=== PATIENT | male | born 1965 | race Two or more races ===

== ENCOUNTER 2016-02-13 11:32 | Inpatient (IN) | payer OTHER ==
[2016-02-13 12:19] VITALS: BMI 23.1
--- NOTE | 2016-02-13 14:50 | HP ---
COWS - Scale Resting Pulse: 0= SD 80 or Below Sweatin=Flushed/Facial Moisture Restless Observation: 3= Extraneous Movement Pupil Size: 2= Moderately Dilated Bone or Joint Aches: 2= Severe Diffuse Aches Runny Nose/ Eye Tearin= Runny Nose/Eyes GI Upset > 30mins: 3= Vomiting/Diarrhea Tremor Observation: 2= Slight Tremor Visible Yawning Observation: 2= >3x During Session Anxiety or Irritability: 2=Irritable/Anxious Goose Flesh Skin: 0=Smooth Skin COWS Score: 20 Admission ROS BHS - HPI Chief Complaint: I NEED HELP TO STOP USING HEROIN Allergies/Adverse Reactions: Allergies Allergy/AdvReac Type Severity Reaction Status Date / Time Fish Containing Products Allergy Mild Rash Verified 02/13/16 13:47 No Known Drug Allergies Allergy Verified 02/13/16 13:47 cheese AdvReac Intermediate Swelling Verified 02/13/16 13:47 History of Present Illness: THIS 50 YEARS OLD MALE WITH HEROIN DEPENDENCE,WITHDRAWAL SYMPTOM,LAST [facility] TO 01/28/16 SEVERAL ADMISSIONS IN THE LAST HTN HPERCHOLESTEROLEMIA NICOTINE DEPENDENCE LONGEST PERIOD 10 YEARS Exam Limitations: No Limitations - Ebola screening Have you traveled outside of the country in the last 21 days: No (N) Have you had contact with anyone from an Ebola affected area: No Have you been sick,other than usual withdrawal symptoms: No Do you have a fever: No - Review of Systems Constitutional: Chills, Diaphoresis, Loss of Appetite, Malaise, Night Sweats, Changes in sleep, Weakness, Unintentional Wgt. Loss EENT: reports: Hearing Loss, Nose Congestion Respiratory: reports: No Symptoms reported Cardiac: reports: No Symptoms Reported GI: reports: Diarrhea, Nausea, Vomiting, Abdominal cramping : reports: No Symptoms Reported Musculoskeletal: reports: Back Pain, Joint Pain, Muscle Pain, Joint Stiffness Integumentary: reports: Dryness Neuro: reports: Headache, Tremors Endocrine: reports: No Symptoms Reported Hematology: reports: No Symptoms Reported Psychiatric: reports: Depressed Patient History - Patient Medical History Hx Anemia: No Hx Asthma: No Hx Chronic Obstructive Pulmonary Disease (COPD): No Hx Cardiac Disorders: No Hx Hypertension: Yes (NO MEDICATION) Hx Hypercholesterolemia: Yes (LIPITOR 20MG LAST TAKEN 6 MONTHS AGO) Hx Pacemaker: No HX Cerebrovascular Accident: No Hx Seizures: No Hx Dementia: No Hx Diabetes: No Hx Gastrointestinal Disorders: No Hx Liver Disease: No Hx Genitourinary Disorders: No Hx Sexually Transmitted Disorders: No Hx Renal Disease (ESRD): No Hx Thyroid Disease: No Hx Human Immunodeficiency Virus (HIV): No (LAST 06/26 NEGATIVE) Hx Hepatitis C: No Hx Depression: Yes (NO MED) Hx Suicide Attempt: No Hx Bipolar Disorder: No Hx Schizophrenia: No Other Medical History: NO SUIDAL,NO HOMICIDAL - Patient Surgical History Past Surgical History: No Hx Neurologic Surgery: No Hx Cataract Extraction: No Hx Cardiac Surgery: No Hx Lung Surgery: No Hx Breast Surgery: No Hx Breast Biopsy: No Hx Abdominal Surgery: No Hx Appendectomy: No Hx Cholecystectomy: No Hx Genitourinary Surgery: No Hx Section: No Hx Orthopedic Surgery: No Anesthesia Reaction: No - PPD History Previous Implant?: Yes Documented Results: Negative w/o proof Date: 11/16/14 Results: 0mm PPD to be Administered?: No - Smoking Cessation Smoking history: Current every day smoker Have you smoked in the past 12 months: Yes Aproximately how many cigarettes per day: 15 Cigars Per Day: 0 Hx Chewing Tobacco Use: No Initiated information on smoking cessation: Yes 'Breaking Loose' booklet given: 02/13/16 - Substance & Tx. History Hx Alcohol Use: No Hx Substance Use: Yes Substance Use Type: Heroin Hx Substance Use Treatment: Yes (LAST [facility] 11/22/14 TO 11/28/15) - Substances Abused Heroin Route: Inhalation Frequency: Daily Amount used: 6-8 bags Age of first use: 34 Date of Last Use: 02/11/16 Family Disease History - Family Disease History Family Disease History: Heart Disease: Father ([place],), Mother (ETOH DEPENDENT AND ,[place]), Brother ([place]), Other: Mother Admission Physical Exam BHS - Vital Signs Vital Signs: Vital Signs - 24 hr 02/13/16 12:18 Temperature 97.8 F Pulse Rate 64 Respiratory 18 Rate Blood Pressure 133/87 - Physical General Appearance: Yes: Moderate Distress, Tremorous, Irritable, Sweating, Anxious HEENTM: Yes: Nasal Congestion Respiratory: Yes: Lungs Clear Neck: Yes: Within Normal Limits Breast: Yes: Within Normal Limits Cardiology: Yes: Within Normal Limits, Regular Rhythm, Regular Rate, S1, S2 Abdominal: Yes: Within Normal Limits, Normal Bowel Sounds, Non Tender, Soft Genitourinary: Yes: Within Normal Limits Back: Yes: Muscle Spasm Musculoskeletal: Yes: Back pain, Joint Stiffness, Muscle Pain Extremities: Yes: Tremors 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 NML intact, Fully Oriented, Alert, Motor Strength 5/5 Integumentary: Yes: Dry Lymphatic: Yes: Within Normal Limits - Diagnostic (1) Nicotine dependence Current Visit: No Status: Chronic (2) Opioid dependence with withdrawal Current Visit: No Status: Chronic (3) Depression Current Visit: Yes Status: Acute (4) Hypertension Current Visit: Yes Status: Acute (5) Hypercholesterolemia Current Visit: Yes Status: Acute Cleared for Admission [facility] - Detox or Rehab [facility] Level of Care: Medically Managed Detox Regimen/Protocol: Methadone [facility] Breath Alcohol Content Breath Alcohol Content: 0 Urine Drug Screen - Results Urine Drug Screen Results: THC-Marijuana, ALEJANDRO-Cocaine, OPI-Opiates
[2016-02-13] MEDS ORDERED: guaiFENesin/D-METHORPHAN HB 10 ML UNIT-DOSE CUPS PO PRN (15:02)
[2016-02-13] MEDS ORDERED: hydrOXYzine PAMOATE 50 MG CAPSULE (FP) PO PRN (15:02)
[2016-02-13] MEDS ORDERED: ACETAMINOPHEN 325 MG TABLET (FP) PO PRN (15:02)
[2016-02-13] MEDS ORDERED: MAG HYDROX/AL HYDROX/SIMETH 30 ML UNIT-DOSE CUP PO PRN (15:02)
[2016-02-13] MEDS ORDERED: LOPERAMIDE HCL 2 MG CAPSULE PO PRN (15:02)
[2016-02-13] MEDS ORDERED: P-EPHED 60MG/TRIPROLIDI 2.5MG TABLET PO PRN (15:02)
[2016-02-13] MEDS ORDERED: IBUPROFEN 400 MG TABLET (FP) PO PRN (15:02)
[2016-02-13] MEDS ORDERED: MAGNESIUM HYDROX 2400MG/30ML ORAL SUSPENSION 30 ML CUP PO PRN (15:02)
[2016-02-13] MEDS ORDERED: MENTHOL/PHENOL 1 EACH UD MM PRN (15:02)
[2016-02-13] MEDS ORDERED: MAGNESIUM CITRATE 300 ML BOTTLE PO PRN (15:02)
[2016-02-13] MEDS ORDERED: METHADONE HCL 10 MG TABLET (FOR DETOX USE ONLY) PO ONE ×2 (15:45→23:00)
[2016-02-13] MEDS: diazePAM 5 MG TABLET PO PRN ×2 (16:14→22:13)
[2016-02-13] MEDS: THIAMINE HCL 100 MG TABLET (FP) PO SCH (22:11)
[2016-02-13 22:56] LABS: URINE APPEARANCE CLEAR; URINE BILIRUBIN NEGATIVE (NEGATIVE); URINE BLOOD NEGATIVE (NEGATIVE); URINE COLOR YELLOW; URINE GLUCOSE (UA) NEGATIVE (NEGATIVE); URINE KETONE NEGATIVE (NEGATIVE); URINE LEUK ESTERASE NEGATIVE (NEGATIVE); URINE NITRITE NEGATIVE (NEGATIVE); URINE PROTEIN NEGATIVE (NEGATIVE); URINE UROBILINOGEN NEGATIVE E.U./dl (0.2-1.0)
[2016-02-14] MEDS ORDERED: METHADONE HCL 10 MG TABLET (FOR DETOX USE ONLY) PO ONE (10:00)
--- NOTE | 2016-02-14 10:14 | CONSULT ---
[facility] Psychiatric Consult - Data Date of interview: 02/14/16 Admission source: [facility] Identifying data: Readmission to [facility] for this 50 y/o male seeking detox treatment on [address] [place] [address] for heroin dependence.Patient is single,a father of six,homeless,unemployed and reportedly deprived of any source of income. Substance Abuse History: - Smoking Cessation. Smoking history: Current every day smoker. Have you smoked in the past 12 months: Yes. Aproximately how many cigarettes per day: 15. Cigars Per Day: 0. Hx Chewing Tobacco Use: No. Initiated information on smoking cessation: Yes. 'Breaking Loose' booklet given : 02/13/16. - Substance & Tx. History. Hx Alcohol Use: No. Hx Substance Use: Yes. Substance Use Type: Heroin. Hx Substance Use Treatment: Yes (LAST [facility] TO 11/28/15). - Substances Abused. Heroin. Route: Inhalation. Frequency: Daily. Amount used: 6-8 bags. Age of first use: 34. Date of Last Use: 02/11/16. Confirmed by patient. Medical History: Consistent with a history of hypertension and dyslipidemia. Psychiatric History: History of 3-4 psychiatric hospitalizations (onset of psychiatric disturbances at age of 17).First psychiatric decompensation was precipitated by PCP intoxication.Never hospitalized in [facility].All admissions were in [place].Mr Dobson endorses the diagnosis of MDD.He admits to a remote history of suicide attempt via self-mutilation.No OPD care.Patient used to be on seroquel ([id number] during stay on [address] [place] [address]).Lost to follow up for several months.He declines to be on psychotropic medications other than detox agents. Physical/Sexual Abuse/Trauma History: Patient denies. Mental Status Exam - Mental Status Exam Alert and Oriented to: Time, Place, Person Cognitive Function: Good Patient Appearance: Well Groomed Mood: Withdrawn, Anxious, Hopeful Affect: Mood Congruent Patient Behavior: Fatigued, Appropriate, Cooperative Speech Pattern: Clear Voice Loudness: Normal Thought Process: Goal Oriented Thought Disorder: Not Present Hallucinations: Denies Suicidal Ideation: Denies Homicidal Ideation: Denies Insight/Judgement: Poor Sleep: Fair Appetite: Good Muscle strength/Tone: Normal Gait/Station: Normal Psychiatric Findings - Problem List ([place] 1, 2,3) (1) Heroin dependence Current Visit: Yes Status: Acute (2) Nicotine dependence Current Visit: Yes Status: Acute (3) Opioid dependence with withdrawal Current Visit: Yes Status: Acute (4) Drug-induced mood disorder Current Visit: Yes Status: Suspected (5) Hypercholesterolemia Current Visit: Yes Status: Chronic (6) Hypertension Current Visit: Yes Status: Chronic - Initial Treatment Plan Initial Treatment Plan: Psychoeducation.Detoxification.Observation.
[2016-02-14] MEDS: PRENATAL VITAMINS W/ FOLIC ACID TABLET (FP) PO SCH (10:20)
[2016-02-14] MEDS ORDERED: ONDANSETRON *ODT* 4 MG TABLET SL PRN (10:30)
--- NOTE | 2016-02-14 10:30 | PN ---
S CIWA - CIWA Score Nausea/Vomitin-Int. Nausea w/Dry Heave Muscle Tremors: 3 Anxiety: 3 Agitation: 2 Paroxysmal Sweats: 3 Orientation: 0-Oriented Tacttile Disturbances: 2-Mild Itch/Numbness/Burn Auditory Disturbances: 0-None Visual Disturbances: 0-None Headache: 0-None Present CIWA-Ar Total Score: 17 BHS Progress Note (SOAP) Subjective: SWEATS, NAUSEA, VOMITING, LBP Objective: 02/14/16 10:27 Vital Signs Temperature 97.7 F 02/14/16 10:25 Pulse Rate 72 02/14/16 10:25 Respiratory Rate 16 02/14/16 10:25 Blood Pressure 132/75 02/14/16 10:25 O2 Sat by Pulse Oximetry (%) Vital Signs Temperature 97.7 F 02/14/16 10:25 Pulse Rate 72 02/14/16 10:25 Respiratory Rate 16 02/14/16 10:25 Blood Pressure 132/75 02/14/16 10:25 O2 Sat by Pulse Oximetry (%) Laboratory Tests 02/13/16 22:40 Urine Color Yellow Urine Appearance Clear Urine pH 5.0 Ur Specific [place] 1.031 Urine Protein Negative Urine Glucose (UA) Negative Urine Ketones Negative Urine Blood Negative Urine Nitrite Negative Urine Bilirubin Negative Urine Urobilinogen Negative Ur Leukocyte Esterase Negative PENDING LABS 02/14/16 10:28 PT AOX3 LYING IN BED Assessment: 02/14/16 10:28 WITHDRAWL SX;S Plan: CONT. DETOX INCREASE FLUIDS ZOFRAN PRN F/UP PENDING LABS MOTRIN PRN
[2016-02-14 11:07] LABS: MCH 29.3 pg (25.7-33.7); MEAN CELL VOLUME 91.4 fl (80-96); MEAN PLT VOLUME 10.2 fl (7.5-11.1); PLATELET COUNT 235 K/MM3 (134-434); RDW 13.9 % (11.9-15.9); WHITE BLOOD COUNT 6.4 K/mm3 (4.0-10.0)
[2016-02-14 11:38] LABS: ALBUMIN 3.8 g/dl (3.4-5.0); ALK PHOS 79 U/L (45-117); ANION GAP 7 (8-16); BILIRUBIN,TOTAL 0.6 mg/dL (0.2-1.0); CALCIUM 9.1 mg/dL (8.5-10.1); CHOLESTEROL 214 mg/dL (50-200); CO2 29 mmol/L (21-32); CREATININE 0.8 mg/dL (0.7-1.3); GLUCOSE,RANDOM 86 mg/dL (74-106); LDL CHOLESTEROL (ONLY SJRH) 135 mg/dL (5-100); SGOT/AST 7 U/L (15-37); SGPT/ALT 16 U/L (12-78); TOT PROT 7.2 g/dl (6.4-8.2)
[2016-02-14 11:43] LABS: HIV 1 & 2 AB NEGATIVE; HIV 1 AGp24 NEGATIVE
[2016-02-14] MEDS: THIAMINE HCL 100 MG TABLET (FP) PO SCH (22:09)
[2016-02-14] MEDS: diazePAM 5 MG TABLET PO PRN (22:09)
[2016-02-15] MEDS ORDERED: METHADONE HCL 5 MG TABLET (FOR DETOX USE ONLY) PO ONE (10:00)
[2016-02-15] MEDS ORDERED: ACETAMINOPHEN 500 MG TABLET (FP) PO PRN (10:29)
--- NOTE | 2016-02-15 10:29 | PN ---
[facility] CIWA - CIWA Score Nausea/Vomitin-No Nausea/No Vomiting Muscle Tremors: 4-Moderate,w/Arms Extend Anxiety: 4-Mod. Anxious/Guarded Agitation: 4-Moderately Restless Paroxysmal Sweats: 3 Orientation: 0-Oriented Tacttile Disturbances: 0-None Auditory Disturbances: 0-None Visual Disturbances: 0-None Headache: 1-Very Mild CIWA-Ar Total Score: 16 BHS Progress Note (SOAP) Subjective: agitation sweats interrupted sleep shakes mild Objective: 02/15/16 10:29 Vital Signs Temperature 96.7 F L 02/15/16 06:26 Pulse Rate 77 02/15/16 06:26 Respiratory Rate 18 02/15/16 06:26 Blood Pressure 110/70 02/15/16 06:26 O2 Sat by Pulse Oximetry (%) Laboratory Tests 02/13/16 02/13/16 02/14/16 06:30 22:40 06:30 WBC 6.4 RBC 4.89 Hgb 14.3 D Hct 44.7 MCV 91.4 MCHC 32.0 RDW 13.9 Plt Count 235 MPV 10.2 Sodium Potassium Chloride Carbon Dioxide Anion Gap BUN Creatinine Creat Clearance w eGFR Random Glucose Calcium Total Bilirubin AST ALT Alkaline Phosphatase Total Protein Albumin Triglycerides Cholesterol Total LDL Cholesterol HDL Cholesterol Urine Color Yellow Urine Appearance Clear Urine pH 5.0 Ur Specific [place] 1.031 Urine Protein Negative Urine Glucose (UA) Negative Urine Ketones Negative Urine Blood Negative Urine Nitrite Negative Urine Bilirubin Negative Urine Urobilinogen Negative Ur Leukocyte Esterase Negative RPR Titer HIV 1&2 Antibody Screen Negative HIV P24 Antigen Negative 02/14/16 02/14/16 06:30 06:30 WBC RBC Hgb Hct MCV MCHC RDW Plt Count MPV Sodium 143 Potassium 4.5 Chloride 107 Carbon Dioxide 29 Anion Gap 7 L BUN 9 Creatinine 0.8 Creat Clearance w eGFR > 60 Random Glucose 86 Calcium 9.1 Total Bilirubin 0.6 AST 7 L ALT 16 Alkaline Phosphatase 79 D Total Protein 7.2 Albumin 3.8 D Triglycerides 108 Cholesterol 214 H Total LDL Cholesterol 135 H HDL Cholesterol 71 H Urine Color Urine Appearance Urine pH Ur Specific [place] Urine Protein Urine Glucose (UA) Urine Ketones Urine Blood Urine Nitrite Urine Bilirubin Urine Urobilinogen Ur Leukocyte Esterase RPR Titer Nonreactive HIV 1&2 Antibody Screen HIV P24 Antigen awake/alert ambulating no acute distress Assessment: 02/15/16 10:31 withdrawal sx Plan: continue detox increase fluids pt advised to see pmd for evaluation on his increased lipids after discharge from detox. pt is not currently taking any hypercholesterol medication.
[2016-02-15] MEDS: PRENATAL VITAMINS W/ FOLIC ACID TABLET (FP) PO SCH (10:35)
[2016-02-15] MEDS ORDERED: ACETAMINOPHEN 325 MG TABLET (FP) PO PRN (11:42)
[2016-02-15] MEDS: THIAMINE HCL 100 MG TABLET (FP) PO SCH (22:23)
[2016-02-15] MEDS: diphenhydrAMINE HCL 50 MG CAPSULE PO PRN (22:23)
[2016-02-16] MEDS: diazePAM 5 MG TABLET PO PRN (08:51)
[2016-02-16] MEDS ORDERED: METHADONE HCL 5 MG TABLET (FOR DETOX USE ONLY) PO ONE (10:00)
[2016-02-16] MEDS: PRENATAL VITAMINS W/ FOLIC ACID TABLET (FP) PO SCH (10:09)
--- NOTE | 2016-02-16 10:48 | PN ---
BHS Progress Note (SOAP) Subjective: sweats , shakes , n/diarrhea, stomach discomfort Objective: 02/16/16 10:33 Vital Signs Temperature 98.4 F 02/16/16 09:55 Pulse Rate 71 02/16/16 09:55 Respiratory Rate 18 02/16/16 09:55 Blood Pressure 149/75 02/16/16 09:55 O2 Sat by Pulse Oximetry (%) Laboratory Tests 02/13/16 02/13/16 02/14/16 06:30 22:40 06:30 WBC 6.4 RBC 4.89 Hgb 14.3 D Hct 44.7 MCV 91.4 MCHC 32.0 RDW 13.9 Plt Count 235 MPV 10.2 Sodium Potassium Chloride Carbon Dioxide Anion Gap BUN Creatinine Creat Clearance w eGFR Random Glucose Calcium Total Bilirubin AST ALT Alkaline Phosphatase Total Protein Albumin Triglycerides Cholesterol Total LDL Cholesterol HDL Cholesterol Urine Color Yellow Urine Appearance Clear Urine pH 5.0 Ur Specific [place] 1.031 Urine Protein Negative Urine Glucose (UA) Negative Urine Ketones Negative Urine Blood Negative Urine Nitrite Negative Urine Bilirubin Negative Urine Urobilinogen Negative Ur Leukocyte Esterase Negative RPR Titer HIV 1&2 Antibody Screen Negative HIV P24 Antigen Negative 02/14/16 02/14/16 06:30 06:30 WBC RBC Hgb Hct MCV MCHC RDW Plt Count MPV Sodium 143 Potassium 4.5 Chloride 107 Carbon Dioxide 29 Anion Gap 7 L BUN 9 Creatinine 0.8 Creat Clearance w eGFR > 60 Random Glucose 86 Calcium 9.1 Total Bilirubin 0.6 AST 7 L ALT 16 Alkaline Phosphatase 79 D Total Protein 7.2 Albumin 3.8 D Triglycerides 108 Cholesterol 214 H Total LDL Cholesterol 135 H HDL Cholesterol 71 H Urine Color Urine Appearance Urine pH Ur Specific [place] Urine Protein Urine Glucose (UA) Urine Ketones Urine Blood Urine Nitrite Urine Bilirubin Urine Urobilinogen Ur Leukocyte Esterase RPR Titer Nonreactive HIV 1&2 Antibody Screen HIV P24 Antigen pt aox3 in nad ambulating Assessment: 02/16/16 10:48 withdrawl sx's 02/16/16 10:49 Plan: cont. detox increase fluids myanta prn
[2016-02-16] MEDS: diphenhydrAMINE HCL 50 MG CAPSULE PO PRN (22:18)
[2016-02-16] MEDS: THIAMINE HCL 100 MG TABLET (FP) PO SCH (22:18)
[2016-02-17] MEDS: PRENATAL VITAMINS W/ FOLIC ACID TABLET (FP) PO SCH (09:58)
[2016-02-17] MEDS ORDERED: METHADONE HCL 10 MG TABLET (FOR DETOX USE ONLY) PO ONE (10:00)
[2016-02-17 10:04] VITALS: BP 160/99; PULSE 63; TEMP 98.1
--- NOTE | 2016-02-17 10:04 | DS ---
[facility] Detox Discharge Summary Admission Date: 02/13/16 Discharge Date: 02/17/16 - History Present History: Alcohol Dependence, Cannabis Dependence, Opioid Dependence - Physical Exam Results Vital Signs: Vital Signs Temperature 97.9 F 02/17/16 06:00 Pulse Rate 55 L 02/17/16 06:00 Respiratory Rate 18 02/17/16 06:00 Blood Pressure 134/79 02/17/16 06:00 O2 Sat by Pulse Oximetry (%) - Treatment Hospital Course: Detox Protocol Followed, Detoxed Safely, Responded well, Discharged Condition Good, Rehab Referral Accepted - Medication Discharge Medications: Ambulatory Orders NK [No Known Home Medication] 11/23/15 - Diagnosis (1) Depression Current Visit: Yes Status: Chronic (2) Alcohol dependence with uncomplicated withdrawal Current Visit: Yes Status: Chronic (3) Cannabis dependence Current Visit: Yes Status: Chronic (4) Hypercholesterolemia Current Visit: Yes Status: Chronic (5) Hypertension Current Visit: Yes Status: Chronic Qualifiers: Hypertension type: essential hypertension Qualified Code(s): I10 - Essential (primary) hypertension (6) Nicotine dependence, uncomplicated Current Visit: Yes Status: Chronic Qualifiers: Nicotine product type: cigarettes Qualified Code(s): F17.210 - Nicotine dependence, cigarettes, uncomplicated (7) Opioid dependence with withdrawal Current Visit: Yes Status: Chronic (8) Drug-induced mood disorder Current Visit: Yes Status: Suspected (9) mood disorder nos Current Visit: No Status: Active (10) Anxiety disorder Current Visit: No Status: Chronic - AMA Did Patient Leave Against Medical Advice: No (pt was p/u for rehab at [facility]. )
[2016-02-18] MEDS ORDERED: METHADONE HCL 5 MG TABLET (FOR DETOX USE ONLY) PO ONE (06:00)
== END 2016-02-17 10:02 | disposition home or self-care (01) | DRG 773 ==
LOC: YASAS 11:32 → Y6N 15:09
PROVIDERS: ADMIT Internal Medicine; ATTEND Internal Medicine
PROC: HZ2ZZZZ Detoxification Services for Substance Abuse Treatment (ICD-10-PCS; principal; 2016-02-13)
DX: F11.23 Opioid dependence with withdrawal (principal); F10.230 Alcohol dependence with withdrawal, uncomplicated; F12.20 Cannabis dependence, uncomplicated; F17.210 Nicotine dependence, cigarettes, uncomplicated; F19.24 Other psychoactive substance dependence with psychoactive substance-induced mood disorder; F39 Unspecified mood [affective] disorder; F41.9 Anxiety disorder, unspecified; F32.9 Major depressive disorder, single episode, unspecified; I10 Essential (primary) hypertension; E78.00 Pure hypercholesterolemia, unspecified; Z59.0 Homelessness
CPT/HCPCS: 36415; 80053; 80061; 81003; 83721; 85027; 86593; 87389; 93005; 93010

== ENCOUNTER 2016-12-25 16:58 | Inpatient (IN) | payer OTHER ==
[2016-12-25 17:40] VITALS: BMI 23.2
--- NOTE | 2016-12-25 19:27 | HP ---
COWS - Scale Resting Pulse: 0= [place] 80 or Below Sweatin= Chills/Flushing Restless Observation: 1= Difficult to Sit Still Pupil Size: 1= Pupils >than Normal Bone or Joint Aches: 1= Mild Discomfort Runny Nose/ Eye Tearin= Nasal Congestion GI Upset > 30mins: 3= Vomiting/Diarrhea Tremor Observation: 2= Slight Tremor Visible Yawning Observation: 1= 1-2x During Session Anxiety or Irritability: 2=Irritable/Anxious Goose Flesh Skin: 3=Piloerection COWS Score: 16 CIWA Score - CIWA Score Nausea/Vomitin Muscle Tremors: 2 Anxiety: 2 Agitation: 1-Slight > Activity Paroxysmal Sweats: 2 Orientation: 0-Oriented Tacttile Disturbances: 0-None Auditory Disturbances: 1-Very Mild Visual Disturbances: 1-Very Mild Sensitivity Headache: 1-Very Mild CIWA-Ar Total Score: 13 Admission ROS S - HPI Chief Complaint: WITHDRAWAL SYMPTOMS Allergies/Adverse Reactions: Allergies Allergy/AdvReac Type Severity Reaction Status Date / Time Fish Containing Products Allergy Mild Rash Verified 12/25/16 18:57 No Known Drug Allergies Allergy Verified 12/25/16 18:57 cheese AdvReac Intermediate Swelling Verified 12/25/16 18:57 History of Present Illness: 51 Y.O. MAN WITH AN EXTENSIVE HISTORY OF HEROIN AND ALCOHOL DEPENDENCE IS HERE SEEKING DETOX. HE HAS HAD MULTIPLE ADMISSIONS WITH HIS LAST BEING February, FOR DETOX. LONGEST PERIOD CLEAN HAS BEEN 15 YEARS WHILE INCARCERATED. Exam Limitations: No Limitations - Ebola screening Have you traveled outside of the country in the last 21 days: No Have you had contact with anyone from an Ebola affected area: No Have you been sick,other than usual withdrawal symptoms: No Do you have a fever: No - Review of Systems Constitutional: Chills, Loss of Appetite, Unintentional Wgt. Loss EENT: reports: Blurred Vision, Tearing, Nose Congestion Respiratory: reports: No Symptoms reported Cardiac: reports: No Symptoms Reported GI: reports: Diarrhea, Poor Appetite, Vomiting, Abdominal cramping : reports: No Symptoms Reported Musculoskeletal: reports: Back Pain Integumentary: reports: Dryness Neuro: reports: Tremors Endocrine: reports: No Symptoms Reported Hematology: reports: No Symptoms Reported Psychiatric: reports: Judgement Intact, Mood/Affect Appropiate, Orientated x3, Anxious, Depressed Other Systems: Reviewed and Negative Patient History - Patient Medical History Hx Anemia: No Hx Asthma: No Hx Chronic Obstructive Pulmonary Disease (COPD): No Hx Cancer: No Hx Cardiac Disorders: Yes ([place]-13 YEARS AGO ) Hx Congestive Heart Failure: No Hx Hypertension: Yes (NO MEDICATION) Hx Hypercholesterolemia: Yes (LIPITOR 20MG LAST TAKEN 6 MONTHS AGO) Hx Pacemaker: No HX Cerebrovascular Accident: No Hx Seizures: No Hx Dementia: No Hx Diabetes: No Hx Gastrointestinal Disorders: No Hx Liver Disease: No Hx Genitourinary Disorders: No Hx Sexually Transmitted Disorders: No Hx Renal Disease (ESRD): No Hx Thyroid Disease: No Hx Human Immunodeficiency Virus (HIV): No (LAST 06/26 NEGATIVE) Hx Hepatitis C: No Hx Depression: Yes (NO MED) Hx Suicide Attempt: No Hx Bipolar Disorder: No Hx Schizophrenia: No - Patient Surgical History Past Surgical History: No Hx Neurologic Surgery: No Hx Cataract Extraction: No Hx Cardiac Surgery: No Hx Lung Surgery: No Hx Breast Surgery: No Hx Breast Biopsy: No Hx Abdominal Surgery: No Hx Appendectomy: No Hx Cholecystectomy: No Hx Genitourinary Surgery: No Hx Section: No Hx Orthopedic Surgery: No Anesthesia Reaction: No - PPD History Previous Implant?: Yes Documented Results: Negative w/proof Date: 02/15/16 Results: 0mm PPD to be Administered?: No - Reproductive History Patient is a Female of Child Bearing Age (11 -55 yrs old): No - Smoking Cessation Smoking history: Current every day smoker Have you smoked in the past 12 months: Yes Aproximately how many cigarettes per day: 15 Cigars Per Day: 0 Hx Chewing Tobacco Use: No Initiated information on smoking cessation: Yes 'Breaking Loose' booklet given: 12/25/16 - Substance & Tx. History Hx Alcohol Use: Yes Hx Substance Use: Yes Substance Use Type: Alcohol, Heroin Hx Substance Use Treatment: Yes (DETOX: 02/2016; NO RECENT REHAB ) - Substances Abused Alcohol Route: Oral Frequency: Daily Amount used: LIQUOR- 1 , BEER- 1 SIX PACK Age of first use: 14 Date of Last Use: 12/25/16 Heroin Route: Inhalation Frequency: Daily Amount used: 4 BAGS Age of first use: 10 Date of Last Use: 12/24/16 Family Disease History - Family Disease History Family Disease History: Heart Disease: Father ([place],), Mother (ETOH DEPENDENT AND ,[place]), Brother ([place]), Other: Mother Admission Physical Exam [facility] - Vital Signs Vital Signs: Vital Signs - 24 hr 12/25/16 17:39 Temperature 97.2 F L Pulse Rate 71 Respiratory 16 Rate Blood Pressure 137/81 - Physical General Appearance: Yes: Disheveled, Sweating, Anxious HEENTM: Yes: Hearing grossly Normal, Normocephalic, Normal Voice Respiratory: Yes: Chest Non-Tender, Lungs Clear, Normal Breath Sounds Neck: Yes: No masses,lesions,Nodules, Trachea in good position Breast: Yes: Breast Exam Deferred Cardiology: Yes: Regular Rhythm, Regular Rate Abdominal: Yes: Normal Bowel Sounds, Non Tender, Flat Genitourinary: Yes: Other (NO COMPLAINTS REPORTED) Back: Yes: Normal Inspection Musculoskeletal: Yes: Gait Steady, Back pain Extremities: Yes: Normal Capillary Refill, Normal Inspection, Normal Range of Motion Neurological: Yes: Fully Oriented, Alert, Motor Strength 5/5, Normal Mood/Affect , Normal Response Integumentary: Yes: Dry Lymphatic: Yes: Within Normal Limits - Diagnostic (1) Alcohol dependence with uncomplicated withdrawal Current Visit: Yes Status: Chronic (2) Hypercholesterolemia Current Visit: Yes Status: Chronic (3) Hypertension Current Visit: Yes Status: Chronic Qualifiers: Hypertension type: essential hypertension Qualified Code(s): I10 - Essential (primary) hypertension (4) Nicotine dependence, uncomplicated Current Visit: Yes Status: Chronic Qualifiers: Nicotine product type: cigarettes Qualified Code(s): F17.210 - Nicotine dependence, cigarettes, uncomplicated (5) Opioid dependence with withdrawal Current Visit: Yes Status: Chronic (6) Weight loss Current Visit: Yes Status: Acute Cleared for Admission [facility] - Detox or Rehab [facility] Level of Care: Medically Managed Detox Regimen/Protocol: Methadone/Librium [facility] Breath Alcohol Content Breath Alcohol Content: 0 Urine Drug Screen - Results Drug Screen Negative: No Urine Drug Screen Results: OPI-Opiates, MTD-Methadone, TCA-Tricyclic Antidepress
[2016-12-25] MEDS ORDERED: MAG HYDROX/AL HYDROX/SIMETH 30 ML UNIT-DOSE CUP PO PRN (19:34)
[2016-12-25] MEDS ORDERED: IBUPROFEN 400 MG TABLET (FP) PO PRN (19:34)
[2016-12-25] MEDS ORDERED: MAGNESIUM CITRATE 300 ML BOTTLE PO PRN (19:34)
[2016-12-25] MEDS ORDERED: LOPERAMIDE HCL 2 MG CAPSULE PO PRN (19:34)
[2016-12-25] MEDS ORDERED: hydrOXYzine PAMOATE 50 MG CAPSULE (FP) PO PRN (19:34)
[2016-12-25] MEDS ORDERED: MENTHOL/PHENOL 1 EACH UD MM PRN (19:34)
[2016-12-25] MEDS ORDERED: ACETAMINOPHEN 325 MG TABLET (FP) PO PRN (19:34)
[2016-12-25] MEDS ORDERED: chlordiazePOXIDE HCL 25 MG CAPSULE PO PRN (19:34)
[2016-12-25] MEDS ORDERED: guaiFENesin/D-METHORPHAN HB 10 ML UNIT-DOSE CUPS PO PRN (19:34)
[2016-12-25] MEDS ORDERED: MAGNESIUM HYDROX 2400MG/30ML ORAL SUSPENSION 30 ML CUP PO PRN (19:34)
[2016-12-25] MEDS ORDERED: P-EPHED 60MG/TRIPROLIDI 2.5MG TABLET PO PRN (19:34)
[2016-12-25] MEDS ORDERED: chlordiazePOXIDE HCL 25 MG CAPSULE PO ONE (19:34)
[2016-12-25] MEDS ORDERED: METHADONE HCL 10 MG TABLET (FOR DETOX USE ONLY) PO ONE ×2 (19:34→23:00)
[2016-12-25] MEDS: THIAMINE HCL 100 MG TABLET (FP) PO SCH (22:09)
[2016-12-25] MEDS: chlordiazePOXIDE HCL 25 MG CAPSULE PO SCH (22:10)
[2016-12-25 22:42] LABS: URINE APPEARANCE SLCLOUDY; URINE BILIRUBIN NEGATIVE (NEGATIVE); URINE BLOOD NEGATIVE (NEGATIVE); URINE COLOR YELLOW; URINE GLUCOSE (UA) NEGATIVE (NEGATIVE); URINE KETONE NEGATIVE (NEGATIVE); URINE NITRITE NEGATIVE (NEGATIVE); URINE PROTEIN NEGATIVE (NEGATIVE); URINE UROBILINOGEN NEGATIVE mg/dL (0.2-1.0)
[2016-12-26] MEDS: chlordiazePOXIDE HCL 25 MG CAPSULE PO SCH ×4 (04:59→22:05)
--- NOTE | 2016-12-26 08:47 | PN ---
S CIWA - CIWA Score Nausea/Vomitin (N/V) Muscle Tremors: 2 Anxiety: 3 Agitation: 3 Paroxysmal Sweats: 1-Minimal Palms Moist Orientation: 0-Oriented Tacttile Disturbances: 2-Mild Itch/Numbness/Burn Auditory Disturbances: 0-None Visual Disturbances: 0-None Headache: 0-None Present CIWA-Ar Total Score: 16 BHS Progress Note (SOAP) Subjective: ANXIETY,SWEATS,NAUSEA/VOMITING,INTERMITTENT SLEEP. Objective: 12/26/16 08:46 Vital Signs Temperature 97.7 F 12/26/16 05:44 Pulse Rate 56 L 12/26/16 05:44 Respiratory Rate 18 12/26/16 05:44 Blood Pressure 119/71 12/26/16 05:44 O2 Sat by Pulse Oximetry (%) Laboratory Last Values Urine Color Yellow 12/25/16 21:30 Urine Appearance Slcloudy 12/25/16 21:30 Urine pH 5.0 (5.0-8.0) 12/25/16 21:30 Ur Specific [place] 1.027 (1.001-1.035) 12/25/16 21:30 Urine Protein Negative (NEGATIVE) 12/25/16 21:30 Urine Glucose (UA) Negative (NEGATIVE) 12/25/16 21:30 Urine Ketones Negative (NEGATIVE) 12/25/16 21:30 Urine Blood Negative (NEGATIVE) 12/25/16 21:30 Urine Nitrite Negative (NEGATIVE) 12/25/16 21:30 Urine Bilirubin Negative (NEGATIVE) 12/25/16 21:30 Urine Urobilinogen Negative mg/dL (0.2-1.0) 12/25/16 21:30 OTHER LABS PENDING Assessment: 12/26/16 08:47 WITHDRAWAL SX Plan: CONTINUE DETOX
[2016-12-26] MEDS ORDERED: METHADONE HCL 10 MG TABLET (FOR DETOX USE ONLY) PO SCH (10:00)
[2016-12-26 10:04] LABS: MCH 29.3 pg (25.7-33.7); MCHC 32.2 g/dl (32.0-35.9); MEAN PLT VOLUME 9.5 fl (7.5-11.1); PLATELET COUNT 249 K/MM3 (134-434); RDW 13.9 % (11.9-15.9); WHITE BLOOD COUNT 6.6 K/mm3 (4.0-10.0)
[2016-12-26] MEDS: PRENATAL VITAMINS W/ FOLIC ACID TABLET (FP) PO SCH (10:07)
[2016-12-26] MEDS ORDERED: ONDANSETRON *ODT* 4 MG TABLET SL PRN (10:13)
[2016-12-26 10:26] LABS: ALBUMIN 3.1 g/dl (3.4-5.0); ALK PHOS 66 U/L (45-117); ANION GAP 9 (8-16); BILIRUBIN,TOTAL 0.4 mg/dL (0.2-1.0); CALCIUM 8.2 mg/dL (8.5-10.1); CO2 27 mmol/L (21-32); CREATININE 0.7 mg/dL (0.7-1.3); GLUCOSE,RANDOM 70 mg/dL (74-106); SGOT/AST 7 U/L (15-37); SGPT/ALT 18 U/L (12-78); TOT PROT 6.1 g/dl (6.4-8.2)
[2016-12-26 10:55] LABS: URINE LEUK ESTERASE Negative (NEGATIVE)
[2016-12-26 11:04] LABS: HIV 1 & 2 AB NEGATIVE; HIV 1 AGp24 NEGATIVE
--- NOTE | 2016-12-26 11:38 | EKG ---
Test Reason : Blood Pressure : / mmHG Vent. Rate : 064 BPM Atrial Rate : 064 BPM P-R Int : 132 ms QRS Dur : 084 ms QT Int : 398 ms P-R-T Axes : -18 084 051 degrees QTc Int : 410 ms NORMAL SINUS RHYTHM NORMAL ECG NO PREVIOUS ECGS AVAILABLE Confirmed by JULIO SANTIZO, SINDY ([id number]) on 12/26/2016 11:38:14 AM Referred By: Confirmed By:SINDY KIM MD
--- NOTE | 2016-12-26 14:52 | CONSULT ---
[facility] Psychiatric Consult - Data Date of interview: 12/26/16 Admission source: [facility] Identifying data: Another admission to [facility] for this 51 y/o male seeking detox treatment on [address] [place] [address] for heroin dependence.Patient is single,a father of six,homeless,unemployed and supported on food stamps. Substance Abuse History: Patient admits to active use of alcohol and heroin as detailed in this report from [facility] . Smoking history: Current every day smoker. Have you smoked in the past 12 months: Yes. Aproximately how many cigarettes per day: 15. Cigars Per Day: 0. Hx Chewing Tobacco Use: No. Initiated information on smoking cessation: Yes. 'Breaking Loose' booklet given: . - Substance & Tx. History. Hx Alcohol Use: Yes. Hx Substance Use: Yes. Substance Use Type: Alcohol, Heroin. Hx Substance Use Treatment: Yes (DETOX: 2016; NO RECENT REHAB ). - Substances Abused. Alcohol. Route: Oral. Frequency: Daily. Amount used: LIQUOR- 1 , BEER- 1 SIX PACK. Age of first use : 14. Date of Last Use: 12/25/16. Heroin. Route: Inhalation. Frequency: Daily. Amount used: 4 BAGS. Age of first use: 10. Date of Last Use: 12/24/16 Medical History: History of myocardial infarction,hypertension and dyslipidemia. Psychiatric History: History of multiple psychiatric hospitalizations.Onset of psychiatric disturbances : age 17.All hospitalizations occurred in [place].Mr Dobson reports the diagnosis of MDD.Remote history of suicide attempt via self-mutilation.No OPD care.Patient used to be on seroquel (2010- 2012 during stay on [address] [place] [address]).Lost to follow up for several months.Patient requests that seroquel 100 mg be included in this hospital course. Physical/Sexual Abuse/Trauma History: No reported history of abuse. Additional Comment: Urine Drug Screen Results: OPI-Opiates, MTD-Methadone, TCA- Tricyclic Antidepressant.Noted. Mental Status Exam - Mental Status Exam Alert and Oriented to: Time, Place, Person Cognitive Function: Good Patient Appearance: Well Groomed Mood: Nervous, Withdrawn, Anxious Affect: Mood Congruent Patient Behavior: Fatigued, Appropriate, Cooperative Speech Pattern: Clear Voice Loudness: Normal Thought Process: Goal Oriented Thought Disorder: Not Present Hallucinations: Denies Suicidal Ideation: Denies Homicidal Ideation: Denies Insight/Judgement: Poor Sleep: Poorly, Difficulty falling asleep Appetite: Good Muscle strength/Tone: Normal Gait/Station: Normal Psychiatric Findings - Problem List ([place] 1, 2,3) (1) Alcohol dependence with uncomplicated withdrawal Current Visit: Yes Status: Acute (2) Opioid dependence with withdrawal Current Visit: Yes Status: Acute (3) Nicotine dependence, uncomplicated Current Visit: Yes Status: Acute Qualifiers: Nicotine product type: cigarettes Qualified Code(s): F17.210 - Nicotine dependence, cigarettes, uncomplicated (4) Drug-induced mood disorder Current Visit: Yes Status: Acute (5) Insomnia Current Visit: Yes Status: Acute - Initial Treatment Plan Initial Treatment Plan: Psychoeducation.Sleep hygiene.Detoxification in progress.Seroquel 100 mg po hs.Side effects/benefits are discussed with patient.He agrees with this careplan.Observation.
[2016-12-26] MEDS ORDERED: QUEtiapine FUMARATE 100 MG TABLET (FP) PO SCH ×2 (15:00→22:00)
[2016-12-26] MEDS: THIAMINE HCL 100 MG TABLET (FP) PO SCH (22:04)
[2016-12-26] MEDS: QUEtiapine FUMARATE 100 MG TABLET (FP) PO SCH (22:05)
[2016-12-27] MEDS: chlordiazePOXIDE HCL 25 MG CAPSULE PO SCH ×3 (04:54→17:27)
[2016-12-27] MEDS: PRENATAL VITAMINS W/ FOLIC ACID TABLET (FP) PO SCH (10:02)
[2016-12-27] MEDS: METHADONE HCL 5 MG TABLET (FOR DETOX USE ONLY) PO SCH (10:02)
--- NOTE | 2016-12-27 13:46 | PN ---
[facility] CIWA - CIWA Score Nausea/Vomitin-No Nausea/No Vomiting Muscle Tremors: 4-Moderate,w/Arms Extend Anxiety: 3 Agitation: 0-Normal Activity Paroxysmal Sweats: 3 Orientation: 4Disoriented Place/Person Tacttile Disturbances: 0-None Auditory Disturbances: 0-None Visual Disturbances: 0-None Headache: 3-Moderate CIWA-Ar Total Score: 17 BHS COWS - Scale Resting Pulse: 0= [place] 80 or Below Sweatin= Chills/Flushing Restless Observation: 1= Difficult to Sit Still Pupil Size: 0= Normal to Room Light Bone or Joint Aches: 2= Severe Diffuse Aches Runny Nose/ Eye Tearin= None GI Upset > 30mins: 2= Nausea/Diarrhea Tremor Observation of Outstretched Hands: 2= Slight Tremor Visible Yawning Observation: 1= 1-2x During Session Anxiety or Irritability: 2=Irritable/Anxious Goose Flesh Skin: 3=Piloerection COWS Score: 14 S Progress Note (SOAP) Subjective: Diarrhea, Tremors, H/A, Body Aches, Sweating. Objective: PT. A & O X 2 (UNCERTAIN ABOUT CURRENT LOCATION). PT. OBSERVED AMBULATING ON UNIT. NO ACUTE DISTRESS. 12/27/16 13:43 Vital Signs Temperature 99.0 F 12/27/16 13:07 Pulse Rate 78 12/27/16 13:07 Respiratory Rate 18 12/27/16 13:07 Blood Pressure 127/79 12/27/16 13:07 O2 Sat by Pulse Oximetry (%) Laboratory Tests 12/25/16 12/25/16 12/26/16 07:00 21:30 07:00 WBC RBC Hgb Hct MCV MCH MCHC RDW Plt Count MPV Sodium Potassium Chloride Carbon Dioxide Anion Gap BUN Creatinine Creat Clearance w eGFR Random Glucose Calcium Total Bilirubin AST ALT Alkaline Phosphatase Total Protein Albumin Urine Color Yellow Urine Appearance Slcloudy Urine pH 5.0 Ur Specific [place] 1.027 Urine Protein Negative Urine Glucose (UA) Negative Urine Ketones Negative Urine Blood Negative Urine Nitrite Negative Urine Bilirubin Negative Urine Urobilinogen Negative Ur Leukocyte Esterase Negative RPR Titer Hepatitis C Antibody <0.1 HIV 1&2 Antibody Screen Negative HIV P24 Antigen Negative 12/26/16 12/26/16 12/26/16 07:00 07:00 07:00 WBC 6.6 RBC 4.40 Hgb 12.9 Hct 40.1 MCV 91.0 MCH 29.3 MCHC 32.2 RDW 13.9 Plt Count 249 MPV 9.5 Sodium 143 Potassium 4.7 Chloride 107 Carbon Dioxide 27 Anion Gap 9 BUN 12 D Creatinine 0.7 Creat Clearance w eGFR > 60 Random Glucose 70 L Calcium 8.2 L Total Bilirubin 0.4 D AST 7 L ALT 18 Alkaline Phosphatase 66 Total Protein 6.1 L Albumin 3.1 L Urine Color Urine Appearance Urine pH Ur Specific [place] Urine Protein Urine Glucose (UA) Urine Ketones Urine Blood Urine Nitrite Urine Bilirubin Urine Urobilinogen Ur Leukocyte Esterase RPR Titer Nonreactive Hepatitis C Antibody HIV 1&2 Antibody Screen HIV P24 Antigen LABS NOTED. 12/27/16 13:45 Assessment: 12/27/16 13:44 WITHDRAWAL SYMPTOMS. Plan: CONTINUE DETOX. INCREASE DAILY PO FLUID INTAKE. PRN IMMODIUM FOR DIARRHEA.
[2016-12-27] MEDS: THIAMINE HCL 100 MG TABLET (FP) PO SCH (22:01)
[2016-12-27] MEDS: chlordiazePOXIDE 5 MG CAPSULE PO SCH (22:01)
[2016-12-27] MEDS: QUEtiapine FUMARATE 100 MG TABLET (FP) PO SCH (22:01)
[2016-12-28] MEDS: chlordiazePOXIDE 5 MG CAPSULE PO SCH ×3 (05:52→17:08)
[2016-12-28] MEDS: METHADONE HCL 5 MG TABLET (FOR DETOX USE ONLY) PO SCH (10:08)
[2016-12-28] MEDS: PRENATAL VITAMINS W/ FOLIC ACID TABLET (FP) PO SCH (10:09)
--- NOTE | 2016-12-28 12:32 | PN ---
BHS Progress Note (SOAP) Subjective: Diarrhea, Tremors, Sweating, Nausea, Stomach Cramping, Body Aches. Objective: PT. A & O X 3, OBSERVED AMBULATING ON UNIT. NO ACUTE DISTRESS. 12/28/16 12:30 Vital Signs Temperature 98.0 F 12/28/16 10:17 Pulse Rate 87 12/28/16 10:17 Respiratory Rate 18 12/28/16 10:17 Blood Pressure 123/76 12/28/16 10:17 O2 Sat by Pulse Oximetry (%) Laboratory Tests 12/25/16 12/25/16 12/26/16 07:00 21:30 07:00 WBC RBC Hgb Hct MCV MCH MCHC RDW Plt Count MPV Sodium Potassium Chloride Carbon Dioxide Anion Gap BUN Creatinine Creat Clearance w eGFR Random Glucose Calcium Total Bilirubin AST ALT Alkaline Phosphatase Total Protein Albumin Urine Color Yellow Urine Appearance Slcloudy Urine pH 5.0 Ur Specific [place] 1.027 Urine Protein Negative Urine Glucose (UA) Negative Urine Ketones Negative Urine Blood Negative Urine Nitrite Negative Urine Bilirubin Negative Urine Urobilinogen Negative Ur Leukocyte Esterase Negative RPR Titer Hepatitis C Antibody <0.1 HIV 1&2 Antibody Screen Negative HIV P24 Antigen Negative 12/26/16 12/26/16 12/26/16 07:00 07:00 07:00 WBC 6.6 RBC 4.40 Hgb 12.9 Hct 40.1 MCV 91.0 MCH 29.3 MCHC 32.2 RDW 13.9 Plt Count 249 MPV 9.5 Sodium 143 Potassium 4.7 Chloride 107 Carbon Dioxide 27 Anion Gap 9 BUN 12 D Creatinine 0.7 Creat Clearance w eGFR > 60 Random Glucose 70 L Calcium 8.2 L Total Bilirubin 0.4 D AST 7 L ALT 18 Alkaline Phosphatase 66 Total Protein 6.1 L Albumin 3.1 L Urine Color Urine Appearance Urine pH Ur Specific [place] Urine Protein Urine Glucose (UA) Urine Ketones Urine Blood Urine Nitrite Urine Bilirubin Urine Urobilinogen Ur Leukocyte Esterase RPR Titer Nonreactive Hepatitis C Antibody HIV 1&2 Antibody Screen HIV P24 Antigen LABS NOTED. Assessment: 12/28/16 12:31 WITHDRAWAL SYMPTOMS. Plan: CONTINUE DETOX.
[2016-12-28] MEDS: QUEtiapine FUMARATE 100 MG TABLET (FP) PO SCH (22:05)
[2016-12-28] MEDS: THIAMINE HCL 100 MG TABLET (FP) PO SCH (22:05)
[2016-12-28] MEDS: chlordiazePOXIDE HCL 10 MG CAPSULE PO SCH (22:05)
[2016-12-29] MEDS: chlordiazePOXIDE HCL 10 MG CAPSULE PO SCH ×3 (05:48→17:40)
[2016-12-29] MEDS ORDERED: METHADONE HCL 10 MG TABLET (FOR DETOX USE ONLY) PO SCH (10:00)
[2016-12-29] MEDS: PRENATAL VITAMINS W/ FOLIC ACID TABLET (FP) PO SCH (10:05)
--- NOTE | 2016-12-29 14:21 | PN ---
BHS Progress Note (SOAP) Subjective: Diarrhea, Stomach Cramping, Body Aches, Interrupted Sleep, Tremors, Anxious. Objective: PT. A & O X 3, OBSERVED AMBULATING ON UNIT. NO ACUTE DISTRESS. 12/29/16 14:20 Vital Signs Temperature 98.7 F 12/29/16 13:37 Pulse Rate 88 12/29/16 13:37 Respiratory Rate 18 12/29/16 13:37 Blood Pressure 134/79 12/29/16 13:37 O2 Sat by Pulse Oximetry (%) Laboratory Tests 12/25/16 12/25/16 12/26/16 07:00 21:30 07:00 WBC RBC Hgb Hct MCV MCH MCHC RDW Plt Count MPV Sodium Potassium Chloride Carbon Dioxide Anion Gap BUN Creatinine Creat Clearance w eGFR Random Glucose Calcium Total Bilirubin AST ALT Alkaline Phosphatase Total Protein Albumin Urine Color Yellow Urine Appearance Slcloudy Urine pH 5.0 Ur Specific [place] 1.027 Urine Protein Negative Urine Glucose (UA) Negative Urine Ketones Negative Urine Blood Negative Urine Nitrite Negative Urine Bilirubin Negative Urine Urobilinogen Negative Ur Leukocyte Esterase Negative RPR Titer Hepatitis C Antibody <0.1 HIV 1&2 Antibody Screen Negative HIV P24 Antigen Negative 12/26/16 12/26/16 12/26/16 07:00 07:00 07:00 WBC 6.6 RBC 4.40 Hgb 12.9 Hct 40.1 MCV 91.0 MCH 29.3 MCHC 32.2 RDW 13.9 Plt Count 249 MPV 9.5 Sodium 143 Potassium 4.7 Chloride 107 Carbon Dioxide 27 Anion Gap 9 BUN 12 D Creatinine 0.7 Creat Clearance w eGFR > 60 Random Glucose 70 L Calcium 8.2 L Total Bilirubin 0.4 D AST 7 L ALT 18 Alkaline Phosphatase 66 Total Protein 6.1 L Albumin 3.1 L Urine Color Urine Appearance Urine pH Ur Specific [place] Urine Protein Urine Glucose (UA) Urine Ketones Urine Blood Urine Nitrite Urine Bilirubin Urine Urobilinogen Ur Leukocyte Esterase RPR Titer Nonreactive Hepatitis C Antibody HIV 1&2 Antibody Screen HIV P24 Antigen LABS NOTED. Assessment: 12/29/16 14:20 WITHDRAWAL SYMPTOMS. Plan: CONTINUE DETOX. DUE TO SEVERITY OF CURRENT DETOX SYMPTOMS, PATIENT PERMITTED TO REMAIN ON DETOX UNIT UNTIL 12/31/2016 - 01/01/2017 PENDING UPCOMING DAILY MEDICAL EVALUATION.
[2016-12-29] MEDS: QUEtiapine FUMARATE 100 MG TABLET (FP) PO SCH (22:03)
[2016-12-29] MEDS: THIAMINE HCL 100 MG TABLET (FP) PO SCH (22:03)
[2016-12-30] MEDS ORDERED: METHADONE HCL 5 MG TABLET (FOR DETOX USE ONLY) PO SCH (06:00)
[2016-12-30] MEDS: PRENATAL VITAMINS W/ FOLIC ACID TABLET (FP) PO SCH (10:12)
--- NOTE | 2016-12-30 14:18 | PN ---
BHS Progress Note (SOAP) Subjective: Tremor, sweating, stomach and back ache Objective: 12/30/16 14:17 Last Vital Signs Temp Pulse Resp BP Pulse Ox 98.2 F 102 H 18 115/80 12/30/16 09:42 12/30/16 09:42 12/30/16 09:42 12/30/16 09:42 Laboratory Tests 12/25/16 12/25/16 12/26/16 07:00 21:30 07:00 WBC RBC Hgb Hct MCV MCH MCHC RDW Plt Count MPV Sodium Potassium Chloride Carbon Dioxide Anion Gap BUN Creatinine Creat Clearance w eGFR POC Glucometer Random Glucose Calcium Total Bilirubin AST ALT Alkaline Phosphatase Total Protein Albumin Urine Color Yellow Urine Appearance Slcloudy Urine pH 5.0 Ur Specific [place] 1.027 Urine Protein Negative Urine Glucose (UA) Negative Urine Ketones Negative Urine Blood Negative Urine Nitrite Negative Urine Bilirubin Negative Urine Urobilinogen Negative Ur Leukocyte Esterase Negative RPR Titer Hepatitis C Antibody <0.1 HIV 1&2 Antibody Screen Negative HIV P24 Antigen Negative 12/26/16 12/26/16 12/26/16 07:00 07:00 07:00 WBC 6.6 RBC 4.40 Hgb 12.9 Hct 40.1 MCV 91.0 MCH 29.3 MCHC 32.2 RDW 13.9 Plt Count 249 MPV 9.5 Sodium 143 Potassium 4.7 Chloride 107 Carbon Dioxide 27 Anion Gap 9 BUN 12 D Creatinine 0.7 Creat Clearance w eGFR > 60 POC Glucometer Random Glucose 70 L Calcium 8.2 L Total Bilirubin 0.4 D AST 7 L ALT 18 Alkaline Phosphatase 66 Total Protein 6.1 L Albumin 3.1 L Urine Color Urine Appearance Urine pH Ur Specific [place] Urine Protein Urine Glucose (UA) Urine Ketones Urine Blood Urine Nitrite Urine Bilirubin Urine Urobilinogen Ur Leukocyte Esterase RPR Titer Nonreactive Hepatitis C Antibody HIV 1&2 Antibody Screen HIV P24 Antigen 12/29/16 16:31 WBC RBC Hgb Hct MCV MCH MCHC RDW Plt Count MPV Sodium Potassium Chloride Carbon Dioxide Anion Gap BUN Creatinine Creat Clearance w eGFR POC Glucometer 104 Random Glucose Calcium Total Bilirubin AST ALT Alkaline Phosphatase Total Protein Albumin Urine Color Urine Appearance Urine pH Ur Specific [place] Urine Protein Urine Glucose (UA) Urine Ketones Urine Blood Urine Nitrite Urine Bilirubin Urine Urobilinogen Ur Leukocyte Esterase RPR Titer Hepatitis C Antibody HIV 1&2 Antibody Screen HIV P24 Antigen Labs noted Assessment: 12/30/16 14:17 Withdrawal symptoms Plan: Continue detox Encouraged to drink lots of water
[2016-12-30] MEDS: QUEtiapine FUMARATE 100 MG TABLET (FP) PO SCH (22:01)
[2016-12-30] MEDS: THIAMINE HCL 100 MG TABLET (FP) PO SCH (22:01)
[2016-12-31 09:14] VITALS: BP 123/84; PULSE 88; TEMP 96.5
[2016-12-31] MEDS: PRENATAL VITAMINS W/ FOLIC ACID TABLET (FP) PO SCH (10:03)
--- NOTE | 2016-12-31 11:13 | PN ---
BHS Progress Note (SOAP) Subjective: Anxious. Objective: PT. A & O X 3, OBSERVED AMBULATING ON UNIT. NO ACUTE DISTRESS. 12/31/16 11:10 Vital Signs Temperature 96.5 F L 12/31/16 09:13 Pulse Rate 88 12/31/16 09:13 Respiratory Rate 18 12/31/16 09:13 Blood Pressure 123/84 12/31/16 09:13 O2 Sat by Pulse Oximetry (%) Laboratory Tests 12/25/16 12/25/16 12/26/16 07:00 21:30 07:00 WBC RBC Hgb Hct MCV MCH MCHC RDW Plt Count MPV Sodium Potassium Chloride Carbon Dioxide Anion Gap BUN Creatinine Creat Clearance w eGFR POC Glucometer Random Glucose Calcium Total Bilirubin AST ALT Alkaline Phosphatase Total Protein Albumin Urine Color Yellow Urine Appearance Slcloudy Urine pH 5.0 Ur Specific [place] 1.027 Urine Protein Negative Urine Glucose (UA) Negative Urine Ketones Negative Urine Blood Negative Urine Nitrite Negative Urine Bilirubin Negative Urine Urobilinogen Negative Ur Leukocyte Esterase Negative RPR Titer Hepatitis C Antibody <0.1 HIV 1&2 Antibody Screen Negative HIV P24 Antigen Negative 12/26/16 12/26/16 12/26/16 07:00 07:00 07:00 WBC 6.6 RBC 4.40 Hgb 12.9 Hct 40.1 MCV 91.0 MCH 29.3 MCHC 32.2 RDW 13.9 Plt Count 249 MPV 9.5 Sodium 143 Potassium 4.7 Chloride 107 Carbon Dioxide 27 Anion Gap 9 BUN 12 D Creatinine 0.7 Creat Clearance w eGFR > 60 POC Glucometer Random Glucose 70 L Calcium 8.2 L Total Bilirubin 0.4 D AST 7 L ALT 18 Alkaline Phosphatase 66 Total Protein 6.1 L Albumin 3.1 L Urine Color Urine Appearance Urine pH Ur Specific [place] Urine Protein Urine Glucose (UA) Urine Ketones Urine Blood Urine Nitrite Urine Bilirubin Urine Urobilinogen Ur Leukocyte Esterase RPR Titer Nonreactive Hepatitis C Antibody HIV 1&2 Antibody Screen HIV P24 Antigen 12/29/16 16:31 WBC RBC Hgb Hct MCV MCH MCHC RDW Plt Count MPV Sodium Potassium Chloride Carbon Dioxide Anion Gap BUN Creatinine Creat Clearance w eGFR POC Glucometer 104 Random Glucose Calcium Total Bilirubin AST ALT Alkaline Phosphatase Total Protein Albumin Urine Color Urine Appearance Urine pH Ur Specific [place] Urine Protein Urine Glucose (UA) Urine Ketones Urine Blood Urine Nitrite Urine Bilirubin Urine Urobilinogen Ur Leukocyte Esterase RPR Titer Hepatitis C Antibody HIV 1&2 Antibody Screen HIV P24 Antigen LABS NOTED. Assessment: 12/31/16 11:11 WITHDRAWAL SYMPTOMS. Plan: CONTINUE DETOX. PATIENT REMAINING ON DETOX UNIT WHILE WAITS FOR POSSIBLE BED AVAILABILITY AT [facility].
--- NOTE | 2016-12-31 13:25 | DS ---
[facility] Detox Discharge Summary Admission Date: 12/25/16 Discharge Date: 12/31/16 - History Present History: Alcohol Dependence, Opioid Dependence Additional Comments: PATIENT GOING TO [facility] FOR AFTERCARE. PATIENT WAS DISCHARGED FROM DETOX UNIT TO BE TAKEN OVER TO REHAB UNIT IN STABLE MEDICAL CONDITION. Pertinent Past History: HTN, Hypercholesterolemia, History of [place], Nicotine Dependence, Insomnia. - Physical Exam Results Vital Signs: Vital Signs Temperature 96.5 F L 12/31/16 09:13 Pulse Rate 88 12/31/16 09:13 Respiratory Rate 18 12/31/16 09:13 Blood Pressure 123/84 12/31/16 09:13 O2 Sat by Pulse Oximetry (%) Pertinent Admission Physical Exam Findings: WITHDRAWAL SYMPTOMS. Laboratory Tests 12/25/16 12/25/16 12/26/16 07:00 21:30 07:00 WBC RBC Hgb Hct MCV MCH MCHC RDW Plt Count MPV Sodium Potassium Chloride Carbon Dioxide Anion Gap BUN Creatinine Creat Clearance w eGFR POC Glucometer Random Glucose Calcium Total Bilirubin AST ALT Alkaline Phosphatase Total Protein Albumin Urine Color Yellow Urine Appearance Slcloudy Urine pH 5.0 Ur Specific [place] 1.027 Urine Protein Negative Urine Glucose (UA) Negative Urine Ketones Negative Urine Blood Negative Urine Nitrite Negative Urine Bilirubin Negative Urine Urobilinogen Negative Ur Leukocyte Esterase Negative RPR Titer Hepatitis C Antibody <0.1 HIV 1&2 Antibody Screen Negative HIV P24 Antigen Negative 12/26/16 12/26/16 12/26/16 07:00 07:00 07:00 WBC 6.6 RBC 4.40 Hgb 12.9 Hct 40.1 MCV 91.0 MCH 29.3 MCHC 32.2 RDW 13.9 Plt Count 249 MPV 9.5 Sodium 143 Potassium 4.7 Chloride 107 Carbon Dioxide 27 Anion Gap 9 BUN 12 D Creatinine 0.7 Creat Clearance w eGFR > 60 POC Glucometer Random Glucose 70 L Calcium 8.2 L Total Bilirubin 0.4 D AST 7 L ALT 18 Alkaline Phosphatase 66 Total Protein 6.1 L Albumin 3.1 L Urine Color Urine Appearance Urine pH Ur Specific [place] Urine Protein Urine Glucose (UA) Urine Ketones Urine Blood Urine Nitrite Urine Bilirubin Urine Urobilinogen Ur Leukocyte Esterase RPR Titer Nonreactive Hepatitis C Antibody HIV 1&2 Antibody Screen HIV P24 Antigen 12/29/16 16:31 WBC RBC Hgb Hct MCV MCH MCHC RDW Plt Count MPV Sodium Potassium Chloride Carbon Dioxide Anion Gap BUN Creatinine Creat Clearance w eGFR POC Glucometer 104 Random Glucose Calcium Total Bilirubin AST ALT Alkaline Phosphatase Total Protein Albumin Urine Color Urine Appearance Urine pH Ur Specific [place] Urine Protein Urine Glucose (UA) Urine Ketones Urine Blood Urine Nitrite Urine Bilirubin Urine Urobilinogen Ur Leukocyte Esterase RPR Titer Hepatitis C Antibody HIV 1&2 Antibody Screen HIV P24 Antigen LABS NOTED. - Treatment Hospital Course: Detox Protocol Followed, Detoxed Safely, Responded well, Discharged Condition Good, Rehab Referral Accepted Patient has Accepted a Rehab Referral to: [facility]. - Diagnosis (1) Alcohol dependence with uncomplicated withdrawal Current Visit: Yes Status: Acute (2) Opioid dependence with withdrawal Current Visit: Yes Status: Acute (3) Drug-induced mood disorder Current Visit: Yes Status: Acute (4) Insomnia Current Visit: Yes Status: Acute Qualifiers: Insomnia type: unspecified Qualified Code(s): G47.00 - Insomnia, unspecified (5) Weight loss Current Visit: Yes Status: Acute (6) Hypercholesterolemia Current Visit: Yes Status: Chronic (7) Hypertension Current Visit: Yes Status: Chronic Qualifiers: Hypertension type: essential hypertension Qualified Code(s): I10 - Essential (primary) hypertension (8) Nicotine dependence, uncomplicated Current Visit: Yes Status: Chronic Qualifiers: Nicotine product type: cigarettes Qualified Code(s): F17.210 - Nicotine dependence, cigarettes, uncomplicated - AMA Did Patient Leave Against Medical Advice: No
== END 2016-12-31 02:42 | disposition other institution (70) | DRG 773 ==
LOC: YASAS 16:58 → Y3N 19:17
PROVIDERS: ADMIT Internal Medicine; ATTEND Internal Medicine
PROC: HZ2ZZZZ Detoxification Services for Substance Abuse Treatment (ICD-10-PCS; principal; 2016-12-25)
DX: F11.23 Opioid dependence with withdrawal (principal); F10.230 Alcohol dependence with withdrawal, uncomplicated; F17.210 Nicotine dependence, cigarettes, uncomplicated; F19.24 Other psychoactive substance dependence with psychoactive substance-induced mood disorder; G47.00 Insomnia, unspecified; I10 Essential (primary) hypertension; E78.00 Pure hypercholesterolemia, unspecified; R63.4 Abnormal weight loss; Z68.23 Body mass index [BMI] 23.0-23.9, adult; Z59.0 Homelessness
CPT/HCPCS: 36415; 80053; 81003; 85027; 86593; 86803; 87389; 93005; 93010

== ENCOUNTER 2016-12-31 14:50 | Inpatient (IN) | payer OTHER ==
--- NOTE | 2016-12-31 13:20 | HP ---
DAISHA SANTIZO Rehab Assess/Revision - Admission History Admitted to Rehab from: [facility] Date of Admission to Rehab: 12/31/2016 - Vital signs Vital Signs: NOTED; STABLE. - Findings Detox History & Physical reviewed: Yes Concur with findings: Yes Comments/Additional Findings: PATIENT'S MEDICAL / MEDICATION HISTORY REVIEWED PRIOR TO DISCHARGE FROM DETOX. PATIENT WAS TAKEN FROM DETOX UNIT TO REHAB UNIT IN STABLE MEDICAL CONDITION. Inpatient Rehab Admission - Initial Determination Are CD services needed?: Yes Free of communicable disease: Yes Not in need of hospitalization: Yes - Rehab Admission Criteria Previous failed treatment: Yes Comorbidities: Yes Patient is meeting Inpatient Rehab admission criteria:: Yes
[~2016-12-31 14:50] MED LIST: ACETAMINOPHEN 325 MG TABLET (FP) PO PRN; IBUPROFEN 400 MG TABLET (FP) PO PRN; LOPERAMIDE HCL 2 MG CAPSULE PO PRN; MAG HYDROX/AL HYDROX/SIMETH 30 ML UNIT-DOSE CUP PO PRN; MAGNESIUM CITRATE 300 ML BOTTLE PO PRN; MAGNESIUM HYDROX 2400MG/30ML ORAL SUSPENSION 30 ML CUP PO PRN; MENTHOL/PHENOL 1 EACH UD MM PRN; P-EPHED 60MG/TRIPROLIDI 2.5MG TABLET PO PRN; guaiFENesin/D-METHORPHAN HB 10 ML UNIT-DOSE CUPS PO PRN
[2016-12-31 15:42] VITALS: BMI 23.6
--- NOTE | 2016-12-31 18:21 | PN ---
DAISHA Progress Note Note: received nurse call that patient transferred from needs admission order chart reviewed admission order completed by Sarah
[2016-12-31] MEDS: QUEtiapine FUMARATE 100 MG TABLET (FP) PO SCH (21:54)
[2016-12-31] MEDS: THIAMINE HCL 100 MG TABLET (FP) PO SCH (21:54)
--- NOTE | 2017-01-01 06:11 | HP ---
Psychiatrist Admission - Data Date of interview: 01/01/17 Admission source: 3N Identifying data: This is one of the multiple [facility] admission for this 51 years old single male, father of 5 living children, unemployed on food stamp, homeless Medical History: Significant for myocardial infarction, hypertension and dyslipidemia. Smokes 15 cigarettes daily Psychiatric History: Reports that his first psychiatric contact was in 1998 when he was admitted to [facility] for suicidal attempt(trying to jump on a train track) in the context of PCP intoxication. Claims that he was kept for 14 days and discharged on no psychotropic medication. Reports a second psychiatric admission in January 2016 to [facility] in [place]. This admission was precipitated by the murder of her daughter in November 2015. Claims that he was hospitalized for 11 days and treated with Seroquel and Trazadone. He said that on discharge, he was referred to an inpatient rehab facility where he could only stay 10 days because of medical insurance coverage issue. Told manual writer that he continued to take Seroquel till he came to [place] 3-4 months ago. He saw Dr Underwood on 12/26/16 while in detox in this facility and Seroquel was resumed at 100 mg po HS. At present, reports feeling depressed , anxious and sleeping poorly Physical/Sexual Abuse/Trauma History: Denies history of sexual, physical or verbal abuse as well as DV relationship Additional Comment: Reports history of multiple arrests including 3 felony convictions. Denies being on parole/prbation at present Vital Signs: Vital Signs - 24 hr 12/31/16 01/01/17 01/01/17 15:15 00:30 03:30 Temperature 98.6 F Pulse Rate 98 H Respiratory 16 18 18 Rate Blood Pressure 129/89 Allergies/Adverse Reactions: Allergies Allergy/AdvReac Type Severity Reaction Status Date / Time shellfish derived Allergy Severe Swelling Verified 12/31/16 15:44 Fish Containing Products Allergy Mild Rash Verified 12/25/16 18:57 No Known Drug Allergies Allergy Verified 12/25/16 18:57 cheese AdvReac Intermediate Swelling Verified 12/25/16 18:57 Date of last physical exam: 12/25/16 Concur with the findings of this exam: Yes - Substance Abuse/Tx History Hx Alcohol Use: Yes Hx Substance Use: Yes Substance Use Type: Alcohol (Started drinking alcohol at age 14, consumes one pint of liquor & a 6pk of beer daily. Last drank on 12/25/16), Heroin (Started using heroin at age 10, consumes 4 bags daily. Last used on 12/24/16) Hx Substance Use Treatment: Yes (6 previous inpt detox & 3 inpt rehab admissions @ [facility]) Mental Status Exam - Mental Status Exam Alert and Oriented to: Time, Place, Person Cognitive Function: Fair Patient Appearance: Well Groomed Mood: Depressed, Anxious Affect: Appropriate Patient Behavior: Cooperative Speech Pattern: Clear Voice Loudness: Normal Thought Process: Intact, Goal Oriented Thought Disorder: Not Present Hallucinations: Denies Suicidal Ideation: Denies Homicidal Ideation: Denies Insight/Judgement: Fair Sleep: Poorly Appetite: Good Muscle strength/Tone: Normal Gait/Station: Normal Psychiatric Findings - Problem List ([place] 1, 2,3) (1) Alcohol dependence Current Visit: Yes Status: Acute (2) Opioid dependence Current Visit: Yes Status: Acute (3) Nicotine dependence, uncomplicated Current Visit: No Status: Chronic Qualifiers: Nicotine product type: cigarettes Qualified Code(s): F17.210 - Nicotine dependence, cigarettes, uncomplicated (4) Mood disorder Current Visit: Yes Status: Chronic (5) MDD (major depressive disorder) Current Visit: Yes Status: Ruled-out (6) Substance induced mood disorder Current Visit: Yes Status: Acute (7) Substance-induced sleep disorder Current Visit: Yes Status: Acute (8) Hypercholesterolemia Current Visit: No Status: Chronic (9) Hypertension Current Visit: No Status: Chronic Qualifiers: Hypertension type: essential hypertension Qualified Code(s): I10 - Essential (primary) hypertension (10) History of AK (myocardial infarction) Current Visit: Yes Status: Acute - Initial Treatment Plan Initial Treatment Plan: 1) Continue Seroquel 100 mg po HS. 2) Monitor progress
[2017-01-01] MEDS: PRENATAL VITAMINS W/ FOLIC ACID TABLET (FP) PO SCH (09:49)
[2017-01-01] MEDS: hydrOXYzine PAMOATE 25 MG CAPSULE (FP) PO PRN (17:54)
[2017-01-01] MEDS: THIAMINE HCL 100 MG TABLET (FP) PO SCH (21:46)
[2017-01-01] MEDS: QUEtiapine FUMARATE 100 MG TABLET (FP) PO SCH (21:46)
[2017-01-02] MEDS: hydrOXYzine PAMOATE 25 MG CAPSULE (FP) PO PRN (10:03)
[2017-01-02] MEDS: PRENATAL VITAMINS W/ FOLIC ACID TABLET (FP) PO SCH (10:03)
--- NOTE | 2017-01-02 10:41 | PN ---
[facility] Progress Note Note: c/o cravings and cotninued opioid withdrawwal sx, would like to start suboxone but homeless Vital Signs - 8 hr 01/02/17 01/02/17 01/02/17 03:30 07:16 10:00 Temperature 98.1 F Pulse Rate 88 97 H Respiratory 18 18 18 Rate Blood Pressure 123/76 122/80 labs reviewed will start suboxone 2mg daily, risks and benefits discussed. Patient requesting halfway detox that administers suboxone. when discharge plans made can increase dose so that cravings are relieved. symptomatic relief of withdrawal ordered.
[2017-01-02] MEDS: CYCLOBENZAPRINE HCL 5 MG TABLET PO SCH ×3 (11:50→21:55)
[2017-01-02] MEDS: PANTOPRAZOLE 40 MG TABLET (FP) PO SCH (11:50)
[2017-01-02] MEDS: BUPRENORPHINE/NALOXONE 2 MG/0.5 MG FILM PACKET SL SCH (11:51)
[2017-01-02] MEDS: NAPROXEN 500 MG TABLET (FP) PO SCH ×2 (11:51→21:58)
[2017-01-02] MEDS: cloNIDine HCL 0.1 MG TABLET PO SCH ×2 (11:51→21:55)
[2017-01-02] MEDS: THIAMINE HCL 100 MG TABLET (FP) PO SCH (21:55)
[2017-01-02] MEDS: QUEtiapine FUMARATE 100 MG TABLET (FP) PO SCH (21:55)
[2017-01-03] MEDS: CYCLOBENZAPRINE HCL 5 MG TABLET PO SCH ×3 (06:14→21:41)
[2017-01-03] MEDS: NAPROXEN 500 MG TABLET (FP) PO SCH ×2 (09:54→21:41)
[2017-01-03] MEDS: PANTOPRAZOLE 40 MG TABLET (FP) PO SCH (09:54)
[2017-01-03] MEDS: cloNIDine HCL 0.1 MG TABLET PO SCH ×2 (09:54→21:41)
[2017-01-03] MEDS: PRENATAL VITAMINS W/ FOLIC ACID TABLET (FP) PO SCH (09:54)
[2017-01-03] MEDS: BUPRENORPHINE/NALOXONE 2 MG/0.5 MG FILM PACKET SL SCH (09:54)
[2017-01-03] MEDS: QUEtiapine FUMARATE 100 MG TABLET (FP) PO SCH (21:41)
[2017-01-03] MEDS: THIAMINE HCL 100 MG TABLET (FP) PO SCH (21:41)
[2017-01-04] MEDS: CYCLOBENZAPRINE HCL 5 MG TABLET PO SCH ×3 (06:40→21:40)
[2017-01-04] MEDS: PRENATAL VITAMINS W/ FOLIC ACID TABLET (FP) PO SCH (10:07)
[2017-01-04] MEDS: BUPRENORPHINE/NALOXONE 2 MG/0.5 MG FILM PACKET SL SCH (10:07)
[2017-01-04] MEDS: cloNIDine HCL 0.1 MG TABLET PO SCH ×2 (10:07→21:40)
[2017-01-04] MEDS: PANTOPRAZOLE 40 MG TABLET (FP) PO SCH (10:08)
[2017-01-04] MEDS: NAPROXEN 500 MG TABLET (FP) PO SCH ×2 (10:32→21:40)
[2017-01-04] MEDS: THIAMINE HCL 100 MG TABLET (FP) PO SCH (21:41)
[2017-01-04] MEDS: QUEtiapine FUMARATE 100 MG TABLET (FP) PO SCH (21:41)
[2017-01-05] MEDS: CYCLOBENZAPRINE HCL 5 MG TABLET PO SCH ×3 (06:12→21:47)
[2017-01-05] MEDS: PRENATAL VITAMINS W/ FOLIC ACID TABLET (FP) PO SCH (09:49)
[2017-01-05] MEDS: NAPROXEN 500 MG TABLET (FP) PO SCH ×2 (09:49→21:48)
[2017-01-05] MEDS: PANTOPRAZOLE 40 MG TABLET (FP) PO SCH (09:49)
[2017-01-05] MEDS: BUPRENORPHINE/NALOXONE 2 MG/0.5 MG FILM PACKET SL SCH (09:49)
[2017-01-05] MEDS: cloNIDine HCL 0.1 MG TABLET PO SCH ×2 (09:49→21:48)
[2017-01-05] MEDS: THIAMINE HCL 100 MG TABLET (FP) PO SCH (21:47)
[2017-01-05] MEDS: QUEtiapine FUMARATE 100 MG TABLET (FP) PO SCH (21:47)
[2017-01-06] MEDS: CYCLOBENZAPRINE HCL 5 MG TABLET PO SCH (06:27)
[2017-01-06] MEDS ORDERED: CYCLOBENZAPRINE HCL 5 MG TABLET PO PRN (07:30)
[2017-01-06] MEDS: NAPROXEN 500 MG TABLET (FP) PO SCH ×2 (10:04→21:40)
[2017-01-06] MEDS: BUPRENORPHINE/NALOXONE 2 MG/0.5 MG FILM PACKET SL SCH (10:04)
[2017-01-06] MEDS: PANTOPRAZOLE 40 MG TABLET (FP) PO SCH (10:04)
[2017-01-06] MEDS: PRENATAL VITAMINS W/ FOLIC ACID TABLET (FP) PO SCH (10:04)
[2017-01-06] MEDS: cloNIDine HCL 0.1 MG TABLET PO SCH ×2 (10:04→21:40)
[2017-01-06] MEDS: THIAMINE HCL 100 MG TABLET (FP) PO SCH (21:40)
[2017-01-06] MEDS: QUEtiapine FUMARATE 100 MG TABLET (FP) PO SCH (21:40)
[2017-01-07] MEDS: BUPRENORPHINE/NALOXONE 2 MG/0.5 MG FILM PACKET SL SCH (09:54)
[2017-01-07] MEDS: NAPROXEN 500 MG TABLET (FP) PO SCH ×2 (09:54→21:33)
[2017-01-07] MEDS: PRENATAL VITAMINS W/ FOLIC ACID TABLET (FP) PO SCH (09:55)
[2017-01-07] MEDS: cloNIDine HCL 0.1 MG TABLET PO SCH ×2 (09:55→21:33)
[2017-01-07] MEDS: PANTOPRAZOLE 40 MG TABLET (FP) PO SCH (09:55)
[2017-01-07] MEDS: QUEtiapine FUMARATE 100 MG TABLET (FP) PO SCH (21:33)
[2017-01-07] MEDS: THIAMINE HCL 100 MG TABLET (FP) PO SCH (21:33)
[2017-01-08] MEDS: BUPRENORPHINE/NALOXONE 2 MG/0.5 MG FILM PACKET SL SCH (10:13)
[2017-01-08] MEDS: NAPROXEN 500 MG TABLET (FP) PO SCH ×2 (10:14→21:34)
[2017-01-08] MEDS: cloNIDine HCL 0.1 MG TABLET PO SCH ×2 (10:14→21:33)
[2017-01-08] MEDS: PRENATAL VITAMINS W/ FOLIC ACID TABLET (FP) PO SCH (10:14)
[2017-01-08] MEDS: PANTOPRAZOLE 40 MG TABLET (FP) PO SCH (10:14)
[2017-01-08] MEDS: THIAMINE HCL 100 MG TABLET (FP) PO SCH (21:33)
[2017-01-08] MEDS: QUEtiapine FUMARATE 100 MG TABLET (FP) PO SCH (21:33)
[2017-01-09] MEDS: PANTOPRAZOLE 40 MG TABLET (FP) PO SCH (10:02)
[2017-01-09] MEDS: PRENATAL VITAMINS W/ FOLIC ACID TABLET (FP) PO SCH (10:02)
[2017-01-09] MEDS: NAPROXEN 500 MG TABLET (FP) PO SCH ×2 (10:03→21:34)
[2017-01-09] MEDS: BUPRENORPHINE/NALOXONE 2 MG/0.5 MG FILM PACKET SL SCH (10:03)
[2017-01-09] MEDS: cloNIDine HCL 0.1 MG TABLET PO SCH ×2 (10:03→21:34)
[2017-01-09] MEDS: QUEtiapine FUMARATE 100 MG TABLET (FP) PO SCH (21:34)
[2017-01-09] MEDS: THIAMINE HCL 100 MG TABLET (FP) PO SCH (21:34)
[2017-01-10] MEDS: NAPROXEN 500 MG TABLET (FP) PO SCH ×2 (09:45→21:54)
[2017-01-10] MEDS: cloNIDine HCL 0.1 MG TABLET PO SCH ×2 (09:45→21:54)
[2017-01-10] MEDS: PANTOPRAZOLE 40 MG TABLET (FP) PO SCH (09:45)
[2017-01-10] MEDS: PRENATAL VITAMINS W/ FOLIC ACID TABLET (FP) PO SCH (09:45)
--- NOTE | 2017-01-10 14:34 | PN ---
Psychiatric Progress Note Vital Signs: Vital Signs Period Temp Pulse Resp BP Sys/Stack Pulse Ox Last 24 Hr 97.6 F 64-73 18-18 123-148/78-85 Date of Session: 01/10/17 Chief Complaint:: discharge visit HPI: Patient is addressing alcohol, opioid, nicotine dependence comorbid MDD, substance induced sleep disorder ROS: myocardial infarction, hypertension and dyslipidemia medically managed Current Medications: Active Medications Generic Name Dose Route Start Last Admin Trade Name Freq PRN Reason Stop Dose Admin Acetaminophen 650 mg 12/31/16 13:10 Tylenol - PO Q4H PRN FEVER OR PAIN Al Hydroxide/Mg Hydroxide 30 ml 12/31/16 13:10 Mylanta Oral Suspension - PO Q6H PRN DYSPEPSIA Clonidine 0.1 mg 01/02/17 11:00 01/10/17 09:45 Catapres - PO 0.1 mg BID LOU Administration Cyclobenzaprine HCl 5 mg 01/06/17 07:30 Cyclobenzaprine Hcl PO Q8H PRN MUSCLE SPASMS Eucalyptus/Menthol/Phenol/Sorbitol 1 each 12/31/16 13:10 Cepastat Lozenge - MM Q4H PRN SORE THROAT Guaifenesin 10 ml 12/31/16 13:10 Robitussin Dm - PO Q6H PRN COUGH Hydroxyzine Pamoate 25 mg 12/31/16 13:10 01/02/17 10:03 Vistaril - PO 25 mg Q4H PRN Administration AGITATION Loperamide HCl 4 mg 12/31/16 13:10 Imodium - PO Q6H PRN DIARRHEA Magnesium Citrate 300 ml 12/31/16 13:10 Citroma - PO Q48H PRN CONSTIPATION Magnesium Hydroxide 30 ml 12/31/16 13:10 Milk Of Magnesia - PO DAILY PRN CONSTIPATION Naproxen 500 mg 01/02/17 10:45 01/10/17 09:45 Naprosyn - PO 500 mg BID LOU Administration Pantoprazole Sodium 40 mg 01/02/17 10:45 01/10/17 09:45 Protonix - PO 40 mg DAILY LOU Administration Multivit/Folic Acid/Iron 1 tab 01/01/17 10:00 01/10/17 09:45 Vitamins (Sjr) - PO 1 tab DAILY LOU Administration Pseudoephedrine/Triprolidine 1 combo 12/31/16 13:10 Actifed - PO TID PRN NASAL CONGESTION Quetiapine Fumarate 100 mg 12/31/16 22:00 01/09/17 21:34 Seroquel - PO 100 mg HS LOU Administration Thiamine HCl 100 mg 12/31/16 22:00 01/09/17 21:34 Vitamin B1 - PO 100 mg HS LOU Administration Current Side Effect: No Lab tests ordered: No Lab tests reviewed: Yes Provider note:: Patient will complete this treatment and meet his goals on . 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 He is motivated to continue maintain abstinence and verbalized understanding the negative consequences of his addition on his major life areas. Patient was encouraged to utilze all supports to prevent relapses. Seroquel well tolerated, scripts prvided for 3 days, patient is stable for discharge tomorrow. Total face to face time:: 25 Mental Status Exam - Mental Status Exam Alert and Oriented to: Time, Place, Person Cognitive Function: Good Patient Appearance: Well Groomed Mood: Hopeful Affect: Appropriate, Mood Congruent Patient Behavior: Appropriate, Cooperative Speech Pattern: Clear, Appropriate Voice Loudness: Normal Thought Process: Intact Thought Disorder: Not Present Hallucinations: Denies Suicidal Ideation: Denies Homicidal Ideation: Denies Insight/Judgement: Fair Sleep: Fair Appetite: Fair Muscle strength/Tone: Normal Gait/Station: Normal Psychiatric Treatment Plan - Problem List (1) Alcohol dependence Current Visit: Yes (2) Opioid dependence Current Visit: Yes (3) Substance-induced sleep disorder Current Visit: Yes (4) MDD (major depressive disorder) Current Visit: Yes
[2017-01-10] MEDS: THIAMINE HCL 100 MG TABLET (FP) PO SCH (21:54)
[2017-01-10] MEDS: QUEtiapine FUMARATE 100 MG TABLET (FP) PO SCH (21:54)
[2017-01-11 06:57] VITALS: BP 145/81; PULSE 70; TEMP 97.5
== END 2017-01-11 09:20 | disposition home or self-care (01) | DRG 772 ==
LOC: YASAS 14:50 → Y3W 14:52
PROVIDERS: ADMIT Psychiatry & Neurology Psychiatry; ATTEND Psychiatry & Neurology Psychiatry
PROC: HZ42ZZZ Group Counseling for Substance Abuse Treatment, Cognitive-Behavioral (ICD-10-PCS; principal; 2016-12-31)
DX: F11.20 Opioid dependence, uncomplicated (principal); F10.20 Alcohol dependence, uncomplicated; F17.210 Nicotine dependence, cigarettes, uncomplicated; F33.9 Major depressive disorder, recurrent, unspecified; F39 Unspecified mood [affective] disorder; F19.282 Other psychoactive substance dependence with psychoactive substance-induced sleep disorder; I25.2 Old myocardial infarction; I10 Essential (primary) hypertension; E78.00 Pure hypercholesterolemia, unspecified; Z59.0 Homelessness

== ENCOUNTER 2017-02-27 10:18 | Inpatient (IN) | payer OTHER ==
[2017-02-27 11:52] VITALS: BMI 23.8
--- NOTE | 2017-02-27 15:14 | HP ---
COWS - Scale Resting Pulse: 0= [place] 80 or Below Sweatin= Chills/Flushing Restless Observation: 1= Difficult to Sit Still Pupil Size: 0= Normal to Room Light Bone or Joint Aches: 2= Severe Diffuse Aches Runny Nose/ Eye Tearin= Nasal Congestion GI Upset > 30mins: 2= Nausea/Diarrhea Tremor Observation: 2= Slight Tremor Visible Yawning Observation: 1= 1-2x During Session Anxiety or Irritability: 2=Irritable/Anxious Goose Flesh Skin: 3=Piloerection COWS Score: 15 Admission ROS S - HPI Chief Complaint: "I'm here to stop using Heroin. I hope that I can get to Rehab after Detox." Patient is here to Detox from Heroin. Allergies/Adverse Reactions: Allergies Allergy/AdvReac Type Severity Reaction Status Date / Time shellfish derived Allergy Severe Swelling Verified 12/31/16 15:44 tomato Allergy Severe Swelling Verified 02/27/17 12:22 Fish Containing Products Allergy Mild Rash Verified 12/25/16 18:57 No Known Drug Allergies Allergy Verified 12/25/16 18:57 cheese AdvReac Intermediate Swelling Verified 12/25/16 18:57 History of Present Illness: Pt. is a 51 YO male here to Detox from Heroin. Patient has had several previous Detox / Rehab admissions at [facility] in the past (most recent: 12/2016.) Longest period of non-drug use in recent years: approx. 2 years (2011 - 2013). Exam Limitations: No Limitations - Ebola screening Have you traveled outside of the country in the last 21 days: No Have you had contact with anyone from an Ebola affected area: No Have you been sick,other than usual withdrawal symptoms: No Do you have a fever: No - Review of Systems Constitutional: Chills, Diaphoresis, Fever, Loss of Appetite, Malaise, Night Sweats, Changes in sleep, Unexplained wgt Loss (Lost approx. 10 -12 lbs. over last 6 months.) EENT: reports: Blurred Vision, Nose Congestion, Sinus Pressure Respiratory: reports: No Symptoms reported Cardiac: reports: No Symptoms Reported GI: reports: Diarrhea, Poor Appetite, Abdominal cramping : reports: No Symptoms Reported Musculoskeletal: reports: Joint Pain, Joint Stiffness Integumentary: reports: No Symptoms Reported Neuro: reports: Headache, Tremors Endocrine: reports: No Symptoms Reported Hematology: reports: No Symptoms Reported Psychiatric: reports: Judgement Intact, Mood/Affect Appropiate, Orientated x3, Anxious, Depressed (And Anxiety; Took medication in past (unable to recall name) ; not taking currently, stopped approx. 7 years ago.) Other Systems: Reviewed and Negative Patient History - Patient Medical History Hx Anemia: No Hx Asthma: No Hx Chronic Obstructive Pulmonary Disease (COPD): No Hx Cancer: No Hx Cardiac Disorders: Yes (CT approx. 10 years ago.) Hx Congestive Heart Failure: No Hx Hypertension: Yes (No outside prescribed medication.) Hx Hypercholesterolemia: Yes (LIPITOR 20MG LAST TAKEN 6 MONTHS AGO) Hx Pacemaker: No HX Cerebrovascular Accident: No Hx Seizures: No Hx Dementia: No Hx Diabetes: No Hx Gastrointestinal Disorders: No Hx Liver Disease: No Hx Genitourinary Disorders: No Hx Sexually Transmitted Disorders: No Hx Renal Disease (ESRD): No Hx Thyroid Disease: No Hx Human Immunodeficiency Virus (HIV): No (Last Tested: 01/27: NEGATIVE) Hx Hepatitis C: No (Last Tested approx. 3 months ago: NEGATIVE) Hx Depression: Yes (Medication in past, not currently.) Hx Suicide Attempt: No (PATIENT DENIES CURRENT SI / HI.) Hx Bipolar Disorder: No Hx Schizophrenia: No Other Medical History: DENIES. - Patient Surgical History Past Surgical History: No Hx Neurologic Surgery: No Hx Cataract Extraction: No Hx Cardiac Surgery: No Hx Lung Surgery: No Hx Breast Surgery: No Hx Breast Biopsy: No Hx Abdominal Surgery: No Hx Appendectomy: No Hx Cholecystectomy: No Hx Genitourinary Surgery: No Hx Section: No Hx Orthopedic Surgery: No Anesthesia Reaction: No - PPD History Previous Implant?: Yes Documented Results: Negative w/o proof Implanted On Prior R Admission?: Yes Date: 02/15/16 Results: 0MM PPD to be Administered?: Yes - Reproductive History Patient is a Female of Child Bearing Age (11 -55 yrs old): No (PATIENT IS MALE.) - Smoking Cessation Smoking history: Current every day smoker Have you smoked in the past 12 months: Yes Aproximately how many cigarettes per day: 20 Cigars Per Day: 0 Hx Chewing Tobacco Use: No Initiated information on smoking cessation: Yes 'Breaking Loose' booklet given: 02/27/17 (GIVEN TO PATIENT.) - Substance & Tx. History Hx Alcohol Use: Yes Hx Substance Use: Yes Substance Use Type: Alcohol, Heroin Hx Substance Use Treatment: Yes (Previous Detox/Rehab admissions at [facility] (most recent: 12/2016).) - Substances Abused Alcohol Route: Oral Frequency: 3-6 times per week Amount used: 6-12 pack beer Age of first use: 14 Date of Last Use: 02/26/17 Heroin Route: Inhalation Frequency: Daily Amount used: 7-8 bags Age of first use: 10 Date of Last Use: 02/26/17 Family Disease History - Family Disease History Family Disease History: Heart Disease: Father (CT,), Mother (ETOH DEPENDENT AND ,CT), Brother (CT; Bipolar Disorder.), Sister (CT), Other: Mother, Brother, Son (Down Syndrome.) Admission Physical Exam [facility] - Vital Signs Vital Signs: Vital Signs - 24 hr 02/27/17 11:50 Temperature 96.4 F L Pulse Rate 77 Respiratory 20 Rate Blood Pressure 157/72 - Physical General Appearance: Yes: No Apparent Distress, Nourished, Appropriately Dressed , Tremorous, Anxious HEENTM: Yes: Hearing grossly Normal, Normocephalic, Normal Voice, ALEXIS, Pharynx Normal Respiratory: Yes: Chest Non-Tender, Lungs Clear, No Respiratory Distress, No Accessory Muscle Use Neck: Yes: No masses,lesions,Nodules, Supple, Trachea in good position Breast: Yes: Breast Exam Deferred Cardiology: Yes: Regular Rhythm, Regular Rate, S1, S2 Abdominal: Yes: Normal Bowel Sounds, Non Tender, Flat, Soft Genitourinary: Yes: Within Normal Limits Back: Yes: Normal Inspection Musculoskeletal: Yes: Gait Steady, Joint Stiffness, Muscle Pain Extremities: Yes: Normal Capillary Refill, Normal Range of Motion, Non-Tender, Tremors Neurological: Yes: Fully Oriented, Alert, Normal Mood/Affect, Normal Response Integumentary: Yes: Normal Color, Dry, Warm Lymphatic: Yes: Within Normal Limits - Diagnostic (1) Uncomplicated alcohol dependence Current Visit: Yes Status: Chronic (2) History of hypercholesterolemia Current Visit: Yes Status: Suspected (3) Nicotine dependence Current Visit: Yes Status: Chronic Qualifiers: Nicotine product type: cigarettes Substance use status: uncomplicated Qualified Code(s): F17.210 - Nicotine dependence, cigarettes, uncomplicated (4) Anxiety and depression Current Visit: Yes Status: Chronic (5) History of CT (myocardial infarction) Current Visit: Yes Status: Resolved (6) Opioid dependence with withdrawal Current Visit: Yes Status: Acute (7) Hypertension Current Visit: Yes Status: Chronic Qualifiers: Hypertension type: essential hypertension Qualified Code(s): I10 - Essential (primary) hypertension Cleared for Admission [facility] - Detox or Rehab [facility] Level of Care: Medically Managed Detox Regimen/Protocol: Methadone [facility] Breath Alcohol Content Breath Alcohol Content: 0 Urine Drug Screen - Results Drug Screen Negative: No Urine Drug Screen Results: OPI-Opiates
[2017-02-27] MEDS ORDERED: MAG HYDROX/AL HYDROX/SIMETH 30 ML UNIT-DOSE CUP PO PRN (15:38)
[2017-02-27] MEDS ORDERED: MAGNESIUM CITRATE 300 ML BOTTLE PO PRN (15:38)
[2017-02-27] MEDS ORDERED: guaiFENesin/D-METHORPHAN HB 10 ML UNIT-DOSE CUPS PO PRN (15:38)
[2017-02-27] MEDS ORDERED: IBUPROFEN 400 MG TABLET (FP) PO PRN (15:38)
[2017-02-27] MEDS ORDERED: LOPERAMIDE HCL 2 MG CAPSULE PO PRN (15:38)
[2017-02-27] MEDS ORDERED: P-EPHED 60MG/TRIPROLIDI 2.5MG TABLET PO PRN (15:38)
[2017-02-27] MEDS ORDERED: MAGNESIUM HYDROX 2400MG/30ML ORAL SUSPENSION 30 ML CUP PO PRN (15:38)
[2017-02-27] MEDS ORDERED: ACETAMINOPHEN 325 MG TABLET (FP) PO PRN (15:38)
[2017-02-27] MEDS ORDERED: MENTHOL/PHENOL 1 EACH UD MM PRN (15:38)
[2017-02-27] MEDS ORDERED: NICOTINE POLACRILEX 2 MG GUM BUC PRN (15:38)
[2017-02-27] MEDS ORDERED: METHADONE HCL 10 MG TABLET (FOR DETOX USE ONLY) PO ONE ×2 (15:45→23:00)
[2017-02-27] MEDS: diazePAM 5 MG TABLET PO PRN ×2 (17:49→22:10)
[2017-02-27] MEDS: NICOTINE 21 MG/24 HOURS TOPICAL PATCH TD SCH (17:50)
[2017-02-27] MEDS: THIAMINE HCL 100 MG TABLET (FP) PO SCH (22:10)
[2017-02-27 23:28] LABS: URINE APPEARANCE CLEAR; URINE BILIRUBIN NEGATIVE (NEGATIVE); URINE BLOOD NEGATIVE (NEGATIVE); URINE COLOR YELLOW; URINE GLUCOSE (UA) NEGATIVE (NEGATIVE); URINE KETONE 1+ (NEGATIVE); URINE LEUK ESTERASE NEGATIVE (NEGATIVE); URINE NITRITE NEGATIVE (NEGATIVE); URINE PROTEIN NEGATIVE (NEGATIVE); URINE UROBILINOGEN 4.0 E.U/dl mg/dL (0.2-1.0)
--- NOTE | 2017-02-28 09:16 | CONSULT ---
[facility] Psychiatric Consult - Data Date of interview: 02/28/17 Admission source: [facility] Identifying data: This is 51 years old male with no psychiatric hospitalization history intoxicated wiith: Alcohol, Cocaine and Nicotine Substance Abuse History: - Smoking Cessation. Smoking history: Current every day smoker. Have you smoked in the past 12 months: Yes. Aproximately how many cigarettes per day: 20. Cigars Per Day: 0. Hx Chewing Tobacco Use: No. Initiated information on smoking cessation: Yes. 'Breaking Loose' booklet given : 02/27/17 (GIVEN TO PATIENT.). - Substance & Tx. History. Hx Alcohol Use: Yes. Hx Substance Use: Yes. Substance Use Type: Alcohol, Heroin. Hx Substance Use Treatment: Yes (Previous Detox/Rehab admissions at [facility] (most recent: 12/2016).). - Substances Abused. Alcohol. Route: Oral. Frequency : 3-6 times per week. Amount used: 6-12 pack beer. Age of first use: 14. Date of Last Use: 02/26/17. Heroin. Route: Inhalation. Frequency: Daily. Amount used: 7-8 bags. Age of first use: 10. Date of Last Use: 02/26/17 Medical History: HyperchoLesterolemia, Hisotry of [place], HTN Psychiatric History: Ifeoma johnston history o9f anxiety and depression, reports no medications taking prior to admission Physical/Sexual Abuse/Trauma History: Denies Additional Comment: Observation. Detox Unit Care Protocol Mental Status Exam - Mental Status Exam Alert and Oriented to: Person Cognitive Function: Fair Patient Appearance: Unkempt Mood: Sad Affect: Flat Patient Behavior: Cooperative Speech Pattern: Appropriate Voice Loudness: Mildly Soft/Quiet Thought Process: Circumstantial Thought Disorder: Being Controlled Hallucinations: Denies Suicidal Ideation: Denies Homicidal Ideation: Denies Insight/Judgement: Fair Sleep: Difficulty falling asleep Appetite: Fair Muscle strength/Tone: Mild Hypotonicity Gait/Station: Shuffling Additional Comments: Observation. Detox Unit Care Protocol Psychiatric Findings - Problem List ([place] 1, 2,3) (1) Opioid dependence with withdrawal Current Visit: Yes Status: Acute (2) Anxiety and depression Current Visit: Yes Status: Chronic (3) Nicotine dependence Current Visit: Yes Status: Chronic Qualifiers: Nicotine product type: cigarettes Substance use status: uncomplicated Qualified Code(s): F17.210 - Nicotine dependence, cigarettes, uncomplicated (4) Uncomplicated alcohol dependence Current Visit: Yes Status: Chronic (5) mood disorder nos Current Visit: No Status: Active (6) Alcohol dependence Current Visit: No Status: Acute (7) Alcohol dependence with uncomplicated withdrawal Current Visit: No Status: Acute (8) Drug-induced mood disorder Current Visit: No Status: Acute (9) Opioid dependence Current Visit: No Status: Acute (10) Substance induced mood disorder Current Visit: No Status: Acute (11) Substance-induced sleep disorder Current Visit: No Status: Acute - Initial Treatment Plan Initial Treatment Plan: Observation. Detox Unit Care Protocol
[2017-02-28] MEDS ORDERED: METHADONE HCL 10 MG TABLET (FOR DETOX USE ONLY) PO ONE (10:00)
[2017-02-28] MEDS: PRENATAL VITAMINS W/ FOLIC ACID TABLET (FP) PO SCH (10:43)
[2017-02-28] MEDS: diazePAM 5 MG TABLET PO PRN ×2 (10:43→22:10)
[2017-02-28] MEDS: NICOTINE 21 MG/24 HOURS TOPICAL PATCH TD SCH (10:44)
[2017-02-28 10:47] LABS: HEMATOCRIT 41.5 % (35.4-49); HEMOGLOBIN 13.4 GM/dL (11.7-16.9); MCH 29.2 pg (25.7-33.7); MCHC 32.4 g/dl (32.0-35.9); MEAN CELL VOLUME 90.3 fl (80-96); MEAN PLT VOLUME 10.3 fl (7.5-11.1); PLATELET COUNT 257 K/MM3 (134-434); RBC 4.59 M/mm3 (4.00-5.60); RDW 13.6 % (11.9-15.9); WHITE BLOOD COUNT 6.7 K/mm3 (4.0-10.0)
[2017-02-28 10:54] LABS: CHLORIDE 103 mmol/L (98-107); POTASSIUM 3.8 mmol/L (3.5-5.1); SODIUM 143 mmol/L (136-145)
[2017-02-28 11:07] LABS: ALK PHOS 70 U/L (45-117); ANION GAP 9 (8-16); BILIRUBIN,TOTAL 0.4 mg/dL (0.2-1.0); BLOOD UREA NITROGEN 16 mg/dL (7-18); CALCIUM 9.1 mg/dL (8.5-10.1); CO2 31 mmol/L (21-32); CREATININE 0.9 mg/dL (0.7-1.3); GLUCOSE,RANDOM 146 mg/dL (74-106); SGOT/AST 9 U/L (15-37); SGPT/ALT 22 U/L (12-78); TOT PROT 7.4 g/dl (6.4-8.2)
--- NOTE | 2017-02-28 11:19 | PN ---
BHS COWS - Scale Resting Pulse: 0= [place] 80 or Below Sweatin=Flushed/Facial Moisture Restless Observation: 1= Difficult to Sit Still Pupil Size: 0= Normal to Room Light Bone or Joint Aches: 2= Severe Diffuse Aches Runny Nose/ Eye Tearin= Nasal Congestion GI Upset > 30mins: 0= None Tremor Observation of Outstretched Hands: 2= Slight Tremor Visible Yawning Observation: 1= 1-2x During Session Anxiety or Irritability: 2=Irritable/Anxious Goose Flesh Skin: 0=Smooth Skin COWS Score: 11 BHS Progress Note (SOAP) Subjective: sweats mild shakes interrupted sleep body aches agitation Objective: 02/28/17 11:18 Vital Signs Temperature 98.8 F 02/28/17 09:21 Pulse Rate 79 02/28/17 09:21 Respiratory Rate 18 02/28/17 09:21 Blood Pressure 116/76 02/28/17 09:21 O2 Sat by Pulse Oximetry (%) Laboratory Tests 02/27/17 02/28/17 02/28/17 20:45 06:00 06:00 WBC 6.7 RBC 4.59 Hgb 13.4 Hct 41.5 MCV 90.3 MCH 29.2 MCHC 32.4 RDW 13.6 Plt Count 257 MPV 10.3 Sodium 143 Potassium 3.8 Chloride 103 Carbon Dioxide 31 Anion Gap 9 BUN 16 D Creatinine 0.9 D Creat Clearance w eGFR > 60 Random Glucose 146 H D Calcium 9.1 Total Bilirubin 0.4 AST 9 L D ALT 22 D Alkaline Phosphatase 70 Total Protein 7.4 D Albumin 4.0 D Urine Color Yellow Urine Appearance Clear Urine pH 7.0 D Ur Specific [place] 1.021 Urine Protein Negative Urine Glucose (UA) Negative Urine Ketones 1+ H Urine Blood Negative Urine Nitrite Negative Urine Bilirubin Negative Urine Urobilinogen 4.0 e.u/dl Ur Leukocyte Esterase Negative aaox3 ambulating no acute distress Assessment: 02/28/17 11:18 withdrawal sx Plan: continue detox increase fluids
--- NOTE | 2017-02-28 12:38 | EKG ---
Test Reason : Blood Pressure : / mmHG Vent. Rate : 071 BPM Atrial Rate : 076 BPM P-R Int : 134 ms QRS Dur : 084 ms QT Int : 408 ms P-R-T Axes : -01 079 040 degrees QTc Int : 443 ms NORMAL SINUS RHYTHM NORMAL ECG WHEN COMPARED WITH ECG OF 25-DEC-2016 21:25, NON-SPECIFIC CHANGE IN ST SEGMENT IN ANTERIOR LEADS NONSPECIFIC T WAVE ABNORMALITY, WORSE IN ANTERIOR LEADS Confirmed by MIGUEL SANTIZO, PERLA ([id number]) on 02/28/2017 12:37:47 PM Referred By: Confirmed By:PERLA RIVERA MD
[2017-02-28] MEDS: THIAMINE HCL 100 MG TABLET (FP) PO SCH (22:10)
[2017-03-01] MEDS ORDERED: METHADONE HCL 5 MG TABLET (FOR DETOX USE ONLY) PO ONE (10:00)
[2017-03-01] MEDS: diazePAM 5 MG TABLET PO PRN (10:54)
[2017-03-01] MEDS: PRENATAL VITAMINS W/ FOLIC ACID TABLET (FP) PO SCH (10:54)
[2017-03-01] MEDS: NICOTINE 21 MG/24 HOURS TOPICAL PATCH TD SCH (10:54)
--- NOTE | 2017-03-01 12:08 | PN ---
BHS COWS - Scale Resting Pulse: 0= [place] 80 or Below Sweatin=Flushed/Facial Moisture Restless Observation: 1= Difficult to Sit Still Pupil Size: 1= Pupils >than Normal Bone or Joint Aches: 2= Severe Diffuse Aches Runny Nose/ Eye Tearin= Nasal Congestion GI Upset > 30mins: 1= Stomach Cramp Tremor Observation of Outstretched Hands: 1= Tremor [place], Not Seen Yawning Observation: 0= None Anxiety or Irritability: 1=Feels Anxious/Irritable Goose Flesh Skin: 0=Smooth Skin COWS Score: 10 BHS Progress Note (SOAP) Subjective: interrupted sleep, sweats leg cramps,pains Objective: 03/01/17 12:05 Vital Signs Temperature 98.8 F 03/01/17 10:00 Pulse Rate 84 03/01/17 10:00 Respiratory Rate 18 03/01/17 10:00 Blood Pressure 126/78 03/01/17 10:00 O2 Sat by Pulse Oximetry (%) Laboratory Tests 02/27/17 02/28/17 02/28/17 20:45 06:00 06:00 WBC 6.7 RBC 4.59 Hgb 13.4 Hct 41.5 MCV 90.3 MCH 29.2 MCHC 32.4 RDW 13.6 Plt Count 257 MPV 10.3 Sodium 143 Potassium 3.8 Chloride 103 Carbon Dioxide 31 Anion Gap 9 BUN 16 D Creatinine 0.9 D Creat Clearance w eGFR > 60 Random Glucose 146 H D Calcium 9.1 Total Bilirubin 0.4 AST 9 L D ALT 22 D Alkaline Phosphatase 70 Total Protein 7.4 D Albumin 4.0 D Urine Color Yellow Urine Appearance Clear Urine pH 7.0 D Ur Specific [place] 1.021 Urine Protein Negative Urine Glucose (UA) Negative Urine Ketones 1+ H Urine Blood Negative Urine Nitrite Negative Urine Bilirubin Negative Urine Urobilinogen 4.0 e.u/dl Ur Leukocyte Esterase Negative RPR Titer 02/28/17 06:00 WBC RBC Hgb Hct MCV MCH MCHC RDW Plt Count MPV Sodium Potassium Chloride Carbon Dioxide Anion Gap BUN Creatinine Creat Clearance w eGFR Random Glucose Calcium Total Bilirubin AST ALT Alkaline Phosphatase Total Protein Albumin Urine Color Urine Appearance Urine pH Ur Specific [place] Urine Protein Urine Glucose (UA) Urine Ketones Urine Blood Urine Nitrite Urine Bilirubin Urine Urobilinogen Ur Leukocyte Esterase RPR Titer Nonreactive pt aox3 in nad , lying in bed Assessment: 03/01/17 12:06 withdrawal sx;s hyperglycemia leg cramps Plan: cont. detox increase fluids flexeril tid/prn bgm daily
[2017-03-01] MEDS: THIAMINE HCL 100 MG TABLET (FP) PO SCH (22:09)
[2017-03-02] MEDS ORDERED: METHADONE HCL 5 MG TABLET (FOR DETOX USE ONLY) PO ONE (10:00)
[2017-03-02] MEDS: PRENATAL VITAMINS W/ FOLIC ACID TABLET (FP) PO SCH (10:40)
[2017-03-02] MEDS: CYCLOBENZAPRINE HCL 5 MG TABLET PO PRN (10:41)
[2017-03-02] MEDS: diazePAM 5 MG TABLET PO PRN (10:41)
[2017-03-02] MEDS: NICOTINE 21 MG/24 HOURS TOPICAL PATCH TD SCH (10:41)
--- NOTE | 2017-03-02 12:19 | PN ---
BHS Progress Note (SOAP) Subjective: Sweating,interrupted sleep,restless Objective: 03/02/17 12:18 Vital Signs - 8 hr 03/02/17 03/02/17 06:14 10:21 Temperature 97.9 F 98.2 F Pulse Rate 69 83 Respiratory 18 16 Rate Blood Pressure 134/77 131/73 Laboratory Tests 02/27/17 02/28/17 02/28/17 20:45 06:00 06:00 WBC 6.7 RBC 4.59 Hgb 13.4 Hct 41.5 MCV 90.3 MCH 29.2 MCHC 32.4 RDW 13.6 Plt Count 257 MPV 10.3 Sodium 143 Potassium 3.8 Chloride 103 Carbon Dioxide 31 Anion Gap 9 BUN 16 D Creatinine 0.9 D Creat Clearance w eGFR > 60 Random Glucose 146 H D Calcium 9.1 Total Bilirubin 0.4 AST 9 L D ALT 22 D Alkaline Phosphatase 70 Total Protein 7.4 D Albumin 4.0 D Urine Color Yellow Urine Appearance Clear Urine pH 7.0 D Ur Specific [place] 1.021 Urine Protein Negative Urine Glucose (UA) Negative Urine Ketones 1+ H Urine Blood Negative Urine Nitrite Negative Urine Bilirubin Negative Urine Urobilinogen 4.0 e.u/dl Ur Leukocyte Esterase Negative RPR Titer 02/28/17 06:00 WBC RBC Hgb Hct MCV MCH MCHC RDW Plt Count MPV Sodium Potassium Chloride Carbon Dioxide Anion Gap BUN Creatinine Creat Clearance w eGFR Random Glucose Calcium Total Bilirubin AST ALT Alkaline Phosphatase Total Protein Albumin Urine Color Urine Appearance Urine pH Ur Specific [place] Urine Protein Urine Glucose (UA) Urine Ketones Urine Blood Urine Nitrite Urine Bilirubin Urine Urobilinogen Ur Leukocyte Esterase RPR Titer Nonreactive labs noted Assessment: 03/02/17 12:18 Withdrawal sx. Plan: Continue detox
[2017-03-02] MEDS: THIAMINE HCL 100 MG TABLET (FP) PO SCH (22:35)
[2017-03-03] MEDS ORDERED: METHADONE HCL 10 MG TABLET (FOR DETOX USE ONLY) PO ONE (10:00)
[2017-03-03] MEDS: PRENATAL VITAMINS W/ FOLIC ACID TABLET (FP) PO SCH (10:47)
[2017-03-03] MEDS: CYCLOBENZAPRINE HCL 5 MG TABLET PO PRN (10:47)
[2017-03-03] MEDS: NICOTINE 21 MG/24 HOURS TOPICAL PATCH TD SCH (10:47)
--- NOTE | 2017-03-03 11:05 | PN ---
BHS Progress Note (SOAP) Subjective: general body ache nasal congestion sweat restlessness Objective: 03/03/17 11:04 Vital Signs Temperature 98.8 F 03/03/17 10:22 Pulse Rate 77 03/03/17 10:22 Respiratory Rate 18 03/03/17 10:22 Blood Pressure 141/85 03/03/17 10:22 O2 Sat by Pulse Oximetry (%) Laboratory Last Values WBC 6.7 K/mm3 (4.0-10.0) 02/28/17 06:00 RBC 4.59 M/mm3 (4.00-5.60) 02/28/17 06:00 Hgb 13.4 GM/dL (11.7-16.9) 02/28/17 06:00 Hct 41.5 % (35.4-49) 02/28/17 06:00 MCV 90.3 fl (80-96) 02/28/17 06:00 MCH 29.2 pg (25.7-33.7) 02/28/17 06:00 MCHC 32.4 g/dl (32.0-35.9) 02/28/17 06:00 RDW 13.6 % (11.9-15.9) 02/28/17 06:00 Plt Count 257 K/MM3 (134-434) 02/28/17 06:00 MPV 10.3 fl (7.5-11.1) 02/28/17 06:00 Sodium 143 mmol/L (136-145) 02/28/17 06:00 Potassium 3.8 mmol/L (3.5-5.1) 02/28/17 06:00 Chloride 103 mmol/L (98-107) 02/28/17 06:00 Carbon Dioxide 31 mmol/L (21-32) 02/28/17 06:00 Anion Gap 9 (8-16) 02/28/17 06:00 BUN 16 mg/dL (7-18) D 02/28/17 06:00 Creatinine 0.9 mg/dL (0.7-1.3) D 02/28/17 06:00 Creat Clearance w eGFR > 60 (>60) 02/28/17 06:00 POC Glucometer 85 UNITS (80-120) 03/03/17 07:15 Random Glucose 146 mg/dL (74-106) H D 02/28/17 06:00 Calcium 9.1 mg/dL (8.5-10.1) 02/28/17 06:00 Total Bilirubin 0.4 mg/dL (0.2-1.0) 02/28/17 06:00 AST 9 U/L (15-37) L D 02/28/17 06:00 ALT 22 U/L (12-78) D 02/28/17 06:00 Alkaline Phosphatase 70 U/L (45-117) 02/28/17 06:00 Total Protein 7.4 g/dl (6.4-8.2) D 02/28/17 06:00 Albumin 4.0 g/dl (3.4-5.0) D 02/28/17 06:00 Urine Color Yellow 02/27/17 20:45 Urine Appearance Clear 02/27/17 20:45 Urine pH 7.0 (5.0-8.0) D 02/27/17 20:45 Ur Specific [place] 1.021 (1.001-1.035) 02/27/17 20:45 Urine Protein Negative (NEGATIVE) 02/27/17 20:45 Urine Glucose (UA) Negative (NEGATIVE) 02/27/17 20:45 Urine Ketones 1+ (NEGATIVE) H 02/27/17 20:45 Urine Blood Negative (NEGATIVE) 02/27/17 20:45 Urine Nitrite Negative (NEGATIVE) 02/27/17 20:45 Urine Bilirubin Negative (NEGATIVE) 02/27/17 20:45 Urine Urobilinogen 4.0 e.u/dl mg/dL (0.2-1.0) 02/27/17 20:45 Ur Leukocyte Esterase Negative (NEGATIVE) 02/27/17 20:45 RPR Titer Nonreactive (NONREACTIVE) 02/28/17 06:00 lab noted Assessment: 03/03/17 11:05 withdrawal sx Plan: continue detox
[2017-03-03] MEDS: THIAMINE HCL 100 MG TABLET (FP) PO SCH (22:50)
[2017-03-04] MEDS ORDERED: METHADONE HCL 5 MG TABLET (FOR DETOX USE ONLY) PO ONE (06:00)
--- NOTE | 2017-03-04 08:11 | DS ---
[facility] Detox Discharge Summary Admission Date: 02/27/17 Discharge Date: 03/04/17 - History Present History: Opioid Dependence Pertinent Past History: see below - Physical Exam Results Vital Signs: Vital Signs Temperature 98.4 F 03/04/17 06:23 Pulse Rate 67 03/04/17 06:23 Respiratory Rate 16 03/04/17 06:23 Blood Pressure 138/79 03/04/17 06:23 O2 Sat by Pulse Oximetry (%) Pertinent Admission Physical Exam Findings: admitted in acute withdrawal medically stable on dc detox completed dc today - Treatment Hospital Course: Detox Protocol Followed, Detoxed Safely, Responded well, Discharged Condition Good, Rehab Referral Accepted - Medication Discharge Medications: Ambulatory Orders NK [No Known Home Medication] 02/27/17 - AMA Did Patient Leave Against Medical Advice: No
[2017-03-04 09:20] VITALS: BP 123/78; PULSE 93; TEMP 100.6
[2017-03-04] MEDS: PRENATAL VITAMINS W/ FOLIC ACID TABLET (FP) PO SCH (10:54)
[2017-03-04] MEDS: NICOTINE 21 MG/24 HOURS TOPICAL PATCH TD SCH (10:54)
== END 2017-03-04 11:46 | disposition home or self-care (01) | DRG 773 ==
LOC: YASAS 10:18 → Y6N 14:10
PROVIDERS: ADMIT Internal Medicine; ATTEND Internal Medicine
PROC: HZ2ZZZZ Detoxification Services for Substance Abuse Treatment (ICD-10-PCS; principal; 2017-02-27)
DX: F11.23 Opioid dependence with withdrawal (principal); F10.230 Alcohol dependence with withdrawal, uncomplicated; F17.210 Nicotine dependence, cigarettes, uncomplicated; F19.24 Other psychoactive substance dependence with psychoactive substance-induced mood disorder; F19.282 Other psychoactive substance dependence with psychoactive substance-induced sleep disorder; F39 Unspecified mood [affective] disorder; F41.8 Other specified anxiety disorders; I10 Essential (primary) hypertension; I25.2 Old myocardial infarction; E78.00 Pure hypercholesterolemia, unspecified; R73.9 Hyperglycemia, unspecified; R25.2 Cramp and spasm; Z91.013 Allergy to seafood; Z91.011 Allergy to milk products
CPT/HCPCS: 36415; 80053; 81003; 82962; 85027; 86593; 93005; 93010

== ENCOUNTER 2017-06-07 20:58 | Inpatient (IN) | payer OTHER ==
[2017-06-07 21:39] VITALS: BMI 23.7
[2017-06-07] MEDS ORDERED: MELATONIN 5 MG TABLETS PO PRN (22:00)
--- NOTE | 2017-06-07 22:13 | HP ---
COWS - Scale Resting Pulse: 0= [place] 80 or Below Sweatin= Chills/Flushing Restless Observation: 3= Extraneous Movement Pupil Size: 2= Moderately Dilated Bone or Joint Aches: 2= Severe Diffuse Aches (Aches in back and legs) Runny Nose/ Eye Tearin= None GI Upset > 30mins: 1= Stomach Cramp Tremor Observation: 2= Slight Tremor Visible Yawning Observation: 0= None Anxiety or Irritability: 1=Feels Anxious/Irritable Goose Flesh Skin: 0=Smooth Skin COWS Score: 12 CIWA Score - CIWA Score Nausea/Vomitin-Mild Nausea/No Vomiting Muscle Tremors: 4-Moderate,w/Arms Extend Anxiety: 1-Mildly Anxious Agitation: 4-Moderately Restless Paroxysmal Sweats: No Perspiration Orientation: 0-Oriented Tacttile Disturbances: 0-None Auditory Disturbances: 0-None Visual Disturbances: 0-None Headache: 1-Very Mild (1-2 black outs. Denies seizures.) CIWA-Ar Total Score: 11 Admission [facility] Chief Complaint: Here for alcohol and opiate withdrawal. Allergies/Adverse Reactions: Allergies Allergy/AdvReac Type Severity Reaction Status Date / Time shellfish derived Allergy Severe Swelling Verified 12/31/16 15:44 tomato Allergy Severe Swelling Verified 02/27/17 12:22 Fish Containing Products Allergy Mild Rash Verified 12/25/16 18:57 No Known Drug Allergies Allergy Verified 12/25/16 18:57 cheese AdvReac Intermediate Swelling Verified 03/01/17 15:04 History of Present Illness: 52 yom with 40 year hx heroin and alcohol use. Has a hx intermittent HTN but not on medications. Hx. depression and anxious r/t daughters since 2016. No meds for depresion Exam Limitations: No Limitations - Ebola screening Have you traveled outside of the country in the last 21 days: No Have you had contact with anyone from an Ebola affected area: No Have you been sick,other than usual withdrawal symptoms: No Do you have a fever: No - Review of Systems Constitutional: Chills, Loss of Appetite, Unexplained wgt Loss (6 lb weight loss over past 2 weeks.) EENT: reports: Blurred Vision (Needs glasses. Last eye exam over 10-15 years.), Dental Problems (Cracked amd missing teetch w/ cavities. Denies tooth pain.) Respiratory: reports: No Symptoms reported Cardiac: reports: Other (Intermittent high blood pressure. Had a heart attack 10 years ago. Denies chest pain or SOB.) GI: reports: Constipated (Occ abd pain when attempting push out stool when constipated. BM's every 1-3 days.), Nausea, Poor Appetite, Abdominal cramping ( Because of withdrawal) : reports: No Symptoms Reported Musculoskeletal: reports: No Symptoms Reported Integumentary: reports: Other (Patches below both eyes, for 5 years, which are related to elevated cholesterol.) Neuro: reports: Numbness (Intermitten numbness of tips of fingers with a buzzing sensation.) Endocrine: reports: No Symptoms Reported Hematology: reports: No Symptoms Reported Psychiatric: reports: Orientated x3 (Denies thought of suicide or violent ideation), Depressed Patient History - Patient Medical History Hx Anemia: No Hx Asthma: No Hx Chronic Obstructive Pulmonary Disease (COPD): No Hx Cancer: No Hx Cardiac Disorders: Yes ([place] approx. 10 years ago.) Hx Congestive Heart Failure: No Hx Hypertension: Yes (No outside prescribed medication.) Hx Hypercholesterolemia: Yes (LIPITOR 20MG LAST TAKEN 6 MONTHS AGO) Hx Pacemaker: No HX Cerebrovascular Accident: No Hx Seizures: No Hx Dementia: No Hx Diabetes: No Hx Gastrointestinal Disorders: No Hx Liver Disease: No Hx Genitourinary Disorders: No Hx Sexually Transmitted Disorders: No Hx Renal Disease (ESRD): No Hx Thyroid Disease: No Hx Human Immunodeficiency Virus (HIV): No (Last Tested: 01/27: NEGATIVE) Hx Hepatitis C: No (Last Tested approx. 3 months ago: NEGATIVE) Hx Depression: Yes (Medication in past, not currently.) Hx Suicide Attempt: No (PATIENT DENIES CURRENT SI / HI.) Hx Bipolar Disorder: No Hx Schizophrenia: No - Patient Surgical History Past Surgical History: No Hx Neurologic Surgery: No Hx Cataract Extraction: No Hx Cardiac Surgery: No Hx Lung Surgery: No Hx Breast Surgery: No Hx Breast Biopsy: No Hx Abdominal Surgery: No Hx Appendectomy: No Hx Cholecystectomy: No Hx Genitourinary Surgery: No Hx Section: No Hx Orthopedic Surgery: No Anesthesia Reaction: No - PPD History Documented Results: Negative w/o proof Date: 03/01/17 Results: 0MM PPD to be Administered?: Yes - Smoking Cessation Smoking history: Current every day smoker Have you smoked in the past 12 months: Yes Aproximately how many cigarettes per day: 20 Cigars Per Day: 0 Hx Chewing Tobacco Use: No Initiated information on smoking cessation: Yes 'Breaking Loose' booklet given: 06/07/17 - Substance & Tx. History Hx Alcohol Use: Yes Hx Substance Use: Yes Substance Use Type: Alcohol, Opiates Hx Substance Use Treatment: Yes (Multiple detox's; No hx methadone tx programs) - Substances Abused Alcohol Route: Oral Frequency: 3-6 times per week Amount used: 6-12 cans beer Age of first use: 12 Date of Last Use: 06/05/17 Heroin Route: Inhalation Frequency: Daily Amount used: 7 - 10 bags Age of first use: 12 Date of Last Use: 06/05/17 Family Disease History - Family Disease History Family Disease History: Heart Disease: Father ([place],), Mother (ETOH DEPENDENT AND ,[place]), Brother ([place]; Bipolar Disorder.), Sister ([place]), Other: Mother, Brother, Son (Down Syndrome.) Admission Physical Exam [facility] - Vital Signs Vital Signs: Vital Signs - 24 hr 06/07/17 21:36 Temperature 97.6 F Pulse Rate 68 Respiratory 21 Rate Blood Pressure 155/94 - Physical General Appearance: Yes: Mild Distress, Tremorous, Anxious HEENTM: Yes: Hearing grossly Normal, Normal Voice, ALEXIS, Rhinorrhea, Other ( Perforated nasal septum) Respiratory: Yes: Lungs Clear, Normal Breath Sounds, No Respiratory Distress Neck: Yes: No masses,lesions,Nodules, Supple Breast: Yes: Breast Exam Deferred Cardiology: Yes: Regular Rate, S1, S2, Other (Elevated blood pressure.) Abdominal: Yes: Normal Bowel Sounds, Non Tender, Soft Genitourinary: Yes: Within Normal Limits Back: Yes: Normal Inspection Musculoskeletal: Yes: full range of Motion, Gait Steady Extremities: Yes: Normal Capillary Refill, Normal Inspection, Normal Range of Motion Neurological: Yes: Fully Oriented, Alert Integumentary: Yes: Other (# Lipoid lesions approx 5, 8, and 10 mms located below both eyes. Non tender.) - Diagnostic (1) Alcohol dependence with uncomplicated withdrawal Current Visit: No Status: Acute (2) Insomnia Current Visit: Yes Status: Acute Qualifiers: Insomnia type: unspecified Qualified Code(s): G47.00 - Insomnia, unspecified (3) Opioid dependence with withdrawal Current Visit: Yes Status: Acute (4) Depression Current Visit: Yes Status: Chronic (5) Hypertension Current Visit: Yes Status: Acute Qualifiers: Hypertension type: essential hypertension Qualified Code(s): I10 - Essential (primary) hypertension (6) Nicotine dependence Current Visit: Yes Status: Chronic Qualifiers: Nicotine product type: cigarettes Substance use status: uncomplicated Qualified Code(s): F17.210 - Nicotine dependence, cigarettes, uncomplicated Cleared for Admission [facility] - Detox or Rehab [facility] Level of Care: Medically Managed [facility] Breath Alcohol Content Breath Alcohol Content: 0 Urine Drug Screen - Results Drug Screen Negative: No Urine Drug Screen Results: OPI-Opiates
[2017-06-07] MEDS ORDERED: MAG HYDROX/AL HYDROX/SIMETH 30 ML UNIT-DOSE CUP PO PRN (22:46)
[2017-06-07] MEDS ORDERED: P-EPHED 60MG/TRIPROLIDI 2.5MG TABLET PO PRN (22:46)
[2017-06-07] MEDS ORDERED: guaiFENesin/D-METHORPHAN HB 10 ML UNIT-DOSE CUPS PO PRN (22:46)
[2017-06-07] MEDS ORDERED: MENTHOL/PHENOL 1 EACH UD MM PRN (22:46)
[2017-06-07] MEDS ORDERED: ACETAMINOPHEN 325 MG TABLET (FP) PO PRN (22:46)
[2017-06-07] MEDS ORDERED: chlordiazePOXIDE HCL 25 MG CAPSULE PO PRN (22:46)
[2017-06-07] MEDS ORDERED: MAGNESIUM HYDROX 2400MG/30ML ORAL SUSPENSION 30 ML CUP PO PRN (22:46)
[2017-06-07] MEDS ORDERED: NICOTINE POLACRILEX 2 MG GUM BC PRN (22:46)
[2017-06-07] MEDS ORDERED: MAGNESIUM CITRATE 300 ML BOTTLE PO PRN (22:46)
[2017-06-07] MEDS ORDERED: METHADONE HCL 10 MG TABLET (FOR DETOX USE ONLY) PO ONE ×2 (22:46→23:00)
[2017-06-07] MEDS ORDERED: hydrOXYzine PAMOATE 50 MG CAPSULE (FP) PO PRN (22:46)
[2017-06-07] MEDS ORDERED: IBUPROFEN 400 MG TABLET (FP) PO PRN (22:46)
[2017-06-07] MEDS ORDERED: LOPERAMIDE HCL 2 MG CAPSULE PO PRN (22:46)
[2017-06-07] MEDS ORDERED: chlordiazePOXIDE HCL 25 MG CAPSULE PO SCH (23:00)
[2017-06-08] MEDS ORDERED: chlordiazePOXIDE HCL 25 MG CAPSULE PO PRN (01:16)
[2017-06-08] MEDS ORDERED: METHADONE HCL 10 MG TABLET (FOR DETOX USE ONLY) PO ONE ×3 (01:16→22:00)
[2017-06-08] MEDS: chlordiazePOXIDE HCL 25 MG CAPSULE PO SCH ×4 (05:41→22:21)
[2017-06-08] MEDS ORDERED: METHADONE HCL 10 MG TABLET (FOR DETOX USE ONLY) PO SCH (10:00)
[2017-06-08] MEDS: LISINOPRIL 5 MG TABLET (FP) PO SCH (10:14)
[2017-06-08] MEDS: PRENATAL VITAMINS W/ FOLIC ACID TABLET (FP) PO SCH (10:14)
[2017-06-08] MEDS: NICOTINE 21 MG/24 HOURS TOPICAL PATCH TD SCH (10:15)
--- NOTE | 2017-06-08 11:35 | EKG ---
Test Reason : Blood Pressure : / mmHG Vent. Rate : 065 BPM Atrial Rate : 065 BPM P-R Int : 134 ms QRS Dur : 084 ms QT Int : 408 ms P-R-T Axes : 006 083 051 degrees QTc Int : 424 ms NORMAL SINUS RHYTHM NORMAL ECG WHEN COMPARED WITH ECG OF 27-FEB-2017 17:04, NO SIGNIFICANT CHANGE WAS FOUND Confirmed by PERLA RIVERA MD ([id number]) on 06/08/2017 11:35:09 AM Referred By: Confirmed By:PERLA RIVERA MD
--- NOTE | 2017-06-08 13:39 | PN ---
S CIWA - CIWA Score Nausea/Vomitin Muscle Tremors: 3 Anxiety: 3 Agitation: 4-Moderately Restless Paroxysmal Sweats: No Perspiration Orientation: 0-Oriented Tacttile Disturbances: 2-Mild Itch/Numbness/Burn Auditory Disturbances: 2-Mild Harshness/Frighten Visual Disturbances: 0-None Headache: 0-None Present CIWA-Ar Total Score: 17 BHS Progress Note (SOAP) Subjective: Body Aches, Anxious, Fatigue, Tremors, Diarrhea, Vomiting. Objective: PATIENT A & O X 3, OBSERVED AMBULATING ON UNIT. NO ACUTE DISTRESS. 06/08/17 13:37 Vital Signs Temperature 97.8 F 06/08/17 09:46 Pulse Rate 74 06/08/17 09:46 Respiratory Rate 18 06/08/17 09:46 Blood Pressure 115/80 06/08/17 09:46 O2 Sat by Pulse Oximetry (%) ADMISSION LABS RESULTS PENDING. Assessment: 06/08/17 13:38 WITHDRAWAL SYMPTOMS. Plan: CONTINUE DETOX.
[2017-06-08 15:13] LABS: HEMATOCRIT 41.3 % (35.4-49); MCH 30.4 pg (25.7-33.7); MCHC 33.9 g/dl (32.0-35.9); MEAN CELL VOLUME 89.5 fl (80-96); MEAN PLT VOLUME 10.3 fl (7.5-11.1); PLATELET COUNT 194 K/MM3 (134-434); RBC 4.62 M/mm3 (4.00-5.60); RDW 13.8 % (11.9-15.9); WHITE BLOOD COUNT 6.5 K/mm3 (4.0-10.0)
[2017-06-08 15:20] LABS: ALBUMIN 3.9 g/dl (3.4-5.0); ANION GAP 8 (8-16); BILIRUBIN,TOTAL 0.6 mg/dL (0.2-1.0); BLOOD UREA NITROGEN 10 mg/dL (7-18); CALCIUM 8.8 mg/dL (8.5-10.1); CHLORIDE 104 mmol/L (98-107); CO2 32 mmol/L (21-32); CREATININE 0.9 mg/dL (0.7-1.3); GLUCOSE,RANDOM 76 mg/dL (74-106); POTASSIUM 3.3 mmol/L (3.5-5.1); SGOT/AST 12 U/L (15-37); SGPT/ALT 20 U/L (12-78); SODIUM 144 mmol/L (136-145); TOT PROT 7.5 g/dl (6.4-8.2)
[2017-06-08 15:21] LABS: ALK PHOS 75 U/L (45-117); URINE APPEARANCE SLCLOUDY; URINE BILIRUBIN NEGATIVE (<2.0 mg/dL); URINE BLOOD NEGATIVE (NEGATIVE); URINE COLOR YELLOW; URINE GLUCOSE (UA) NEGATIVE (NEGATIVE); URINE KETONE NEGATIVE (NEGATIVE); URINE LEUK ESTERASE NEGATIVE (NEGATIVE); URINE NITRITE NEGATIVE (NEGATIVE); URINE PROTEIN NEGATIVE (NEGATIVE)
--- NOTE | 2017-06-08 16:04 | PN ---
S Progress Note Note: Results of Admission CBC and CMP noted. Patient noted to have Hypokalemia. K-Dur , 20 MEQ PO BID ordered. Results of admission RPR and HIV AB still pending. Jose Armando Smith NP.
[2017-06-08] MEDS: POTASSIUM CHLORIDE TABS 20 MEQ TABLET.ER (FP) PO SCH (17:23)
--- NOTE | 2017-06-08 17:39 | CONSULT ---
[facility] Psychiatric Consult - Data Date of interview: 06/08/17 Admission source: [facility] Identifying data: One of multiple admissions to [facility] for this 52 y/o male seeking detox treatment on for alcohol and heroin dependence.Patient is single,a father of four (claimed six at a previous encounter),homeless,unemployed and supported on food stamps. Substance Abuse History: Confirmed by patient in this interview.Details in current [facility] report : Smoking history: Current every day smoker. Have you smoked in the past 12 months: Yes. Aproximately how many cigarettes per day: 20. Cigars Per Day: 0. Hx Chewing Tobacco Use: No. Initiated information on smoking cessation: Yes. 'Breaking Loose' booklet given: 06/07/17. - Substance & Tx. History. Hx Alcohol Use: Yes. Hx Substance Use: Yes. Substance Use Type : Alcohol, Opiates. Hx Substance Use Treatment: Yes (Multiple detox's; No hx methadone tx programs). - Substances Abused. Alcohol. Route: Oral. Frequency: 3-6 times per week. Amount used: 6-12 cans beer. Age of first use: 12. Date of Last Use: 06/05/17. Heroin. Route: Inhalation. Frequency: Daily. Amount used: 7 - 10 bags. Age of first use: 12. Date of Last Use: Medical History: Past history of myocardial infarction,hypertension and dyslipidemia. Psychiatric History: History of multiple psychiatric hospitalizations ([facility]).Onset of psychiatric disturbances : age 17. Diagnosed with MDD.Mr Dobson reports psychiatric follow up for eight consecutive years at an OPD program, [facility], until he dropped out of treatment five months ago (self-report).NOT on psychotropic medications.Patient denies history of suicide attempts in this interview. Physical/Sexual Abuse/Trauma History: Patient denies. Additional Comment: Urine Drug Screen Results: OPI-Opiates.Noted. Mental Status Exam - Mental Status Exam Alert and Oriented to: Time, Place, Person Cognitive Function: Good Patient Appearance: Well Groomed Mood: Nervous, Withdrawn Affect: Mood Congruent Patient Behavior: Fatigued, Cooperative Speech Pattern: Clear Voice Loudness: Normal Thought Process: Intact, Goal Oriented Thought Disorder: Not Present Hallucinations: Denies Suicidal Ideation: Denies Homicidal Ideation: Denies Insight/Judgement: Poor Sleep: Poorly, Difficulty falling asleep Appetite: Good Muscle strength/Tone: Normal Gait/Station: Normal Psychiatric Findings - Problem List ([place] 1, 2,3) (1) Alcohol dependence with uncomplicated withdrawal Current Visit: Yes Status: Acute (2) Opioid dependence with withdrawal Current Visit: Yes Status: Acute (3) Nicotine dependence Current Visit: Yes Status: Acute Qualifiers: Nicotine product type: cigarettes Substance use status: uncomplicated Qualified Code(s): F17.210 - Nicotine dependence, cigarettes, uncomplicated (4) Substance induced mood disorder Current Visit: Yes Status: Acute (5) Insomnia Current Visit: Yes Status: Acute - Initial Treatment Plan Initial Treatment Plan: Psychoeducation.Sleep hygiene.Detoxification.Ambien 10 mg po hs prn.Paatient is informed of potential for parasomnias.He agrees with this careplan.Observation.
[2017-06-08] MEDS: THIAMINE HCL 100 MG TABLET (FP) PO SCH (22:20)
[2017-06-08] MEDS: ZOLPIDEM TARTRATE 10 MG TABLET (PARK CARE ONLY) PO PRN (22:20)
[2017-06-08] MEDS ORDERED: chlordiazePOXIDE HCL 25 MG CAPSULE PO SCH (23:00)
[2017-06-09] MEDS: chlordiazePOXIDE HCL 25 MG CAPSULE PO SCH ×4 (05:21→22:15)
[2017-06-09] MEDS ORDERED: METHADONE HCL 5 MG TABLET (FOR DETOX USE ONLY) PO SCH (10:00)
[2017-06-09] MEDS ORDERED: METHADONE HCL 10 MG TABLET (FOR DETOX USE ONLY) PO SCH (10:00)
[2017-06-09] MEDS: LISINOPRIL 5 MG TABLET (FP) PO SCH (10:10)
[2017-06-09] MEDS: NICOTINE 21 MG/24 HOURS TOPICAL PATCH TD SCH (10:10)
[2017-06-09] MEDS: PRENATAL VITAMINS W/ FOLIC ACID TABLET (FP) PO SCH (10:10)
[2017-06-09] MEDS: POTASSIUM CHLORIDE TABS 20 MEQ TABLET.ER (FP) PO SCH ×2 (10:10→17:52)
--- NOTE | 2017-06-09 14:34 | PN ---
S CIWA - CIWA Score Nausea/Vomitin-No Nausea/No Vomiting Muscle Tremors: 2 Anxiety: 4-Mod. Anxious/Guarded Agitation: 3 Paroxysmal Sweats: 2 Orientation: 0-Oriented Tacttile Disturbances: 2-Mild Itch/Numbness/Burn Auditory Disturbances: 0-None Visual Disturbances: 2-Mild Sensitivity Headache: 0-None Present CIWA-Ar Total Score: 15 S COWS - Scale Resting Pulse: 0= [place] 80 or Below Sweatin= Chills/Flushing Restless Observation: 1= Difficult to Sit Still Pupil Size: 0= Normal to Room Light Bone or Joint Aches: 1= Mild Discomfort Runny Nose/ Eye Tearin= Runny Nose/Eyes GI Upset > 30mins: 0= None Tremor Observation of Outstretched Hands: 2= Slight Tremor Visible Yawning Observation: 2= >3x During Session Anxiety or Irritability: 2=Irritable/Anxious Goose Flesh Skin: 0=Smooth Skin COWS Score: 11 S Progress Note (SOAP) Subjective: Sweating, Tremors, Body Aches, Anxious. Objective: PATIENT A & O X 3, OBSERVED AMBULATING ON UNIT. NO ACUTE DISTRESS. 06/09/17 14:33 Vital Signs Temperature 96.0 F L 06/09/17 14:20 Pulse Rate 74 06/09/17 14:20 Respiratory Rate 18 06/09/17 14:20 Blood Pressure 110/76 06/09/17 14:20 O2 Sat by Pulse Oximetry (%) Laboratory Tests 06/08/17 06/08/17 06/08/17 09:20 09:20 09:20 WBC 6.5 RBC 4.62 Hgb 14.0 Hct 41.3 MCV 89.5 MCH 30.4 MCHC 33.9 RDW 13.8 Plt Count 194 D MPV 10.3 Sodium 144 Potassium 3.3 L Chloride 104 Carbon Dioxide 32 Anion Gap 8 BUN 10 D Creatinine 0.9 Creat Clearance w eGFR > 60 Random Glucose 76 D Calcium 8.8 Total Bilirubin 0.6 D AST 12 L D ALT 20 Alkaline Phosphatase 75 Total Protein 7.5 Albumin 3.9 Urine Color Urine Appearance Urine pH Ur Specific [place] Urine Protein Urine Glucose (UA) Urine Ketones Urine Blood Urine Nitrite Urine Bilirubin Urine Urobilinogen Ur Leukocyte Esterase RPR Titer Nonreactive HIV 1&2 Antibody Screen HIV P24 Antigen 06/08/17 06/08/17 09:20 09:20 WBC RBC Hgb Hct MCV MCH MCHC RDW Plt Count MPV Sodium Potassium Chloride Carbon Dioxide Anion Gap BUN Creatinine Creat Clearance w eGFR Random Glucose Calcium Total Bilirubin AST ALT Alkaline Phosphatase Total Protein Albumin Urine Color Yellow Urine Appearance Slcloudy Urine pH 6.0 Ur Specific [place] 1.018 Urine Protein Negative Urine Glucose (UA) Negative Urine Ketones Negative Urine Blood Negative Urine Nitrite Negative Urine Bilirubin Negative Urine Urobilinogen 2.0 Ur Leukocyte Esterase Negative RPR Titer HIV 1&2 Antibody Screen Negative HIV P24 Antigen Negative LABS NOTED. Assessment: 06/09/17 14:33 WITHDRAWAL SYMPTOMS. HYPOKALEMIA. 06/09/17 14:34 Plan: CONTINUE DETOX. CONTINUE K-DUR, INCREASE DAILY PO FLUID INTAKE.
[2017-06-09] MEDS: THIAMINE HCL 100 MG TABLET (FP) PO SCH (22:15)
[2017-06-09] MEDS ORDERED: chlordiazePOXIDE 5 MG CAPSULE PO SCH (23:00)
[2017-06-10] MEDS: chlordiazePOXIDE 5 MG CAPSULE PO SCH ×4 (05:22→22:09)
[2017-06-10] MEDS: METHADONE HCL 5 MG TABLET (FOR DETOX USE ONLY) PO SCH (10:27)
[2017-06-10] MEDS: LISINOPRIL 5 MG TABLET (FP) PO SCH (10:27)
[2017-06-10] MEDS: PRENATAL VITAMINS W/ FOLIC ACID TABLET (FP) PO SCH (10:27)
[2017-06-10] MEDS: POTASSIUM CHLORIDE TABS 20 MEQ TABLET.ER (FP) PO SCH ×2 (10:28→17:37)
[2017-06-10] MEDS: NICOTINE 21 MG/24 HOURS TOPICAL PATCH TD SCH (10:28)
--- NOTE | 2017-06-10 12:27 | PN ---
BHS Progress Note (SOAP) Subjective: Sleep disturbance Shakes sweats Objective: 06/10/17 12:26 A & O x 3 Vital Signs Temperature 96.2 F L 06/10/17 09:09 Pulse Rate 74 06/10/17 09:09 Respiratory Rate 20 06/10/17 09:09 Blood Pressure 115/70 06/10/17 09:09 O2 Sat by Pulse Oximetry (%) Assessment: 06/10/17 12:27 withdrawal sx Plan: continue detox and all meds
[2017-06-10] MEDS: ZOLPIDEM TARTRATE 10 MG TABLET (PARK CARE ONLY) PO PRN (22:09)
[2017-06-10] MEDS: THIAMINE HCL 100 MG TABLET (FP) PO SCH (22:09)
[2017-06-10] MEDS ORDERED: chlordiazePOXIDE HCL 10 MG CAPSULE PO SCH (23:00)
[2017-06-11] MEDS: chlordiazePOXIDE HCL 10 MG CAPSULE PO SCH ×4 (05:35→22:41)
[2017-06-11] MEDS ORDERED: METHADONE HCL 10 MG TABLET (FOR DETOX USE ONLY) PO SCH (10:00)
[2017-06-11] MEDS: PRENATAL VITAMINS W/ FOLIC ACID TABLET (FP) PO SCH (10:23)
[2017-06-11] MEDS: POTASSIUM CHLORIDE TABS 20 MEQ TABLET.ER (FP) PO SCH ×2 (10:23→17:28)
[2017-06-11] MEDS: LISINOPRIL 5 MG TABLET (FP) PO SCH (10:23)
[2017-06-11] MEDS: METHADONE HCL 5 MG TABLET (FOR DETOX USE ONLY) PO SCH (10:25)
[2017-06-11] MEDS: NICOTINE 21 MG/24 HOURS TOPICAL PATCH TD SCH (11:12)
--- NOTE | 2017-06-11 13:31 | PN ---
BHS Progress Note (SOAP) Subjective: Body Aches, Fatigue. Objective: PATIENT A & O X 3, OBSERVED AMBULATING ON UNIT. NO ACUTE DISTRESS. 06/11/17 13:30 Vital Signs Temperature 97.3 F L 06/11/17 13:21 Pulse Rate 69 06/11/17 13:21 Respiratory Rate 18 06/11/17 13:21 Blood Pressure 137/93 06/11/17 13:21 O2 Sat by Pulse Oximetry (%) Laboratory Tests 06/08/17 06/08/17 06/08/17 09:20 09:20 09:20 WBC 6.5 RBC 4.62 Hgb 14.0 Hct 41.3 MCV 89.5 MCH 30.4 MCHC 33.9 RDW 13.8 Plt Count 194 D MPV 10.3 Sodium 144 Potassium 3.3 L Chloride 104 Carbon Dioxide 32 Anion Gap 8 BUN 10 D Creatinine 0.9 Creat Clearance w eGFR > 60 Random Glucose 76 D Calcium 8.8 Total Bilirubin 0.6 D AST 12 L D ALT 20 Alkaline Phosphatase 75 Total Protein 7.5 Albumin 3.9 Urine Color Urine Appearance Urine pH Ur Specific [place] Urine Protein Urine Glucose (UA) Urine Ketones Urine Blood Urine Nitrite Urine Bilirubin Urine Urobilinogen Ur Leukocyte Esterase RPR Titer Nonreactive HIV 1&2 Antibody Screen HIV P24 Antigen 06/08/17 06/08/17 09:20 09:20 WBC RBC Hgb Hct MCV MCH MCHC RDW Plt Count MPV Sodium Potassium Chloride Carbon Dioxide Anion Gap BUN Creatinine Creat Clearance w eGFR Random Glucose Calcium Total Bilirubin AST ALT Alkaline Phosphatase Total Protein Albumin Urine Color Yellow Urine Appearance Slcloudy Urine pH 6.0 Ur Specific [place] 1.018 Urine Protein Negative Urine Glucose (UA) Negative Urine Ketones Negative Urine Blood Negative Urine Nitrite Negative Urine Bilirubin Negative Urine Urobilinogen 2.0 Ur Leukocyte Esterase Negative RPR Titer HIV 1&2 Antibody Screen Negative HIV P24 Antigen Negative LABS NOTED. Assessment: 06/11/17 13:30 WITHDRAWAL SYMPTOMS. HYPOKALEMIA. 06/11/17 13:30 Plan: CONTINUE DETOX. CONTINUE K-DUR.
[2017-06-11] MEDS: ZOLPIDEM TARTRATE 10 MG TABLET (PARK CARE ONLY) PO PRN (22:06)
[2017-06-11] MEDS: THIAMINE HCL 100 MG TABLET (FP) PO SCH (22:06)
[2017-06-12] MEDS ORDERED: METHADONE HCL 5 MG TABLET (FOR DETOX USE ONLY) PO SCH (06:00)
[2017-06-12] MEDS ORDERED: METHADONE HCL 10 MG TABLET (FOR DETOX USE ONLY) PO SCH (10:00)
[2017-06-12] MEDS: LISINOPRIL 5 MG TABLET (FP) PO SCH (10:12)
[2017-06-12] MEDS: PRENATAL VITAMINS W/ FOLIC ACID TABLET (FP) PO SCH (10:12)
[2017-06-12] MEDS: POTASSIUM CHLORIDE TABS 20 MEQ TABLET.ER (FP) PO SCH ×2 (10:12→17:32)
[2017-06-12] MEDS: NICOTINE 21 MG/24 HOURS TOPICAL PATCH TD SCH (10:12)
[2017-06-12] MEDS ORDERED: ONDANSETRON *ODT* 4 MG TABLET SL PRN (11:48)
--- NOTE | 2017-06-12 11:56 | PN ---
BHS Progress Note (SOAP) Subjective: Sweating, Anxious. Objective: PATIENT A & O X 3, OBSERVED AMBULATING ON UNIT. NO ACUTE DISTRESS. 06/12/17 11:54 Vital Signs Temperature 97.6 F 06/12/17 09:13 Pulse Rate 78 06/12/17 09:13 Respiratory Rate 18 06/12/17 09:13 Blood Pressure 125/85 06/12/17 09:13 O2 Sat by Pulse Oximetry (%) Laboratory Tests 06/08/17 06/08/17 06/08/17 09:20 09:20 09:20 WBC 6.5 RBC 4.62 Hgb 14.0 Hct 41.3 MCV 89.5 MCH 30.4 MCHC 33.9 RDW 13.8 Plt Count 194 D MPV 10.3 Sodium 144 Potassium 3.3 L Chloride 104 Carbon Dioxide 32 Anion Gap 8 BUN 10 D Creatinine 0.9 Creat Clearance w eGFR > 60 Random Glucose 76 D Calcium 8.8 Total Bilirubin 0.6 D AST 12 L D ALT 20 Alkaline Phosphatase 75 Total Protein 7.5 Albumin 3.9 Urine Color Urine Appearance Urine pH Ur Specific [place] Urine Protein Urine Glucose (UA) Urine Ketones Urine Blood Urine Nitrite Urine Bilirubin Urine Urobilinogen Ur Leukocyte Esterase RPR Titer Nonreactive HIV 1&2 Antibody Screen HIV P24 Antigen 06/08/17 06/08/17 09:20 09:20 WBC RBC Hgb Hct MCV MCH MCHC RDW Plt Count MPV Sodium Potassium Chloride Carbon Dioxide Anion Gap BUN Creatinine Creat Clearance w eGFR Random Glucose Calcium Total Bilirubin AST ALT Alkaline Phosphatase Total Protein Albumin Urine Color Yellow Urine Appearance Slcloudy Urine pH 6.0 Ur Specific [place] 1.018 Urine Protein Negative Urine Glucose (UA) Negative Urine Ketones Negative Urine Blood Negative Urine Nitrite Negative Urine Bilirubin Negative Urine Urobilinogen 2.0 Ur Leukocyte Esterase Negative RPR Titer HIV 1&2 Antibody Screen Negative HIV P24 Antigen Negative LABS NOTED. Assessment: 06/12/17 11:55 WITHDRAWAL SYMPTOMS. Plan: CONTINUE DETOX. PATIENT SCHEDULED FOR D/C TOMORROW.
[2017-06-12] MEDS: ZOLPIDEM TARTRATE 10 MG TABLET (PARK CARE ONLY) PO PRN (22:04)
[2017-06-12] MEDS: THIAMINE HCL 100 MG TABLET (FP) PO SCH (22:04)
[2017-06-13] MEDS ORDERED: METHADONE HCL 5 MG TABLET (FOR DETOX USE ONLY) PO SCH (06:00)
[2017-06-13 06:20] VITALS: BP 102/60; PULSE 57; TEMP 96.4
--- NOTE | 2017-06-13 15:48 | PN ---
BHS Progress Note (SOAP) Subjective: Patient denies current Detox symptoms and reports that he feels well overall. Objective: PATIENT A & O X 3, OBSERVED AMBULATING ON UNIT. NO ACUTE DISTRESS. 06/13/17 15:47 Vital Signs Temperature 96.4 F L 06/13/17 06:18 Pulse Rate 57 L 06/13/17 06:18 Respiratory Rate 18 06/13/17 06:18 Blood Pressure 102/60 06/13/17 06:18 O2 Sat by Pulse Oximetry (%) Laboratory Tests 06/08/17 06/08/17 06/08/17 09:20 09:20 09:20 WBC 6.5 RBC 4.62 Hgb 14.0 Hct 41.3 MCV 89.5 MCH 30.4 MCHC 33.9 RDW 13.8 Plt Count 194 D MPV 10.3 Sodium 144 Potassium 3.3 L Chloride 104 Carbon Dioxide 32 Anion Gap 8 BUN 10 D Creatinine 0.9 Creat Clearance w eGFR > 60 Random Glucose 76 D Calcium 8.8 Total Bilirubin 0.6 D AST 12 L D ALT 20 Alkaline Phosphatase 75 Total Protein 7.5 Albumin 3.9 Urine Color Urine Appearance Urine pH Ur Specific [place] Urine Protein Urine Glucose (UA) Urine Ketones Urine Blood Urine Nitrite Urine Bilirubin Urine Urobilinogen Ur Leukocyte Esterase RPR Titer Nonreactive HIV 1&2 Antibody Screen HIV P24 Antigen 06/08/17 06/08/17 09:20 09:20 WBC RBC Hgb Hct MCV MCH MCHC RDW Plt Count MPV Sodium Potassium Chloride Carbon Dioxide Anion Gap BUN Creatinine Creat Clearance w eGFR Random Glucose Calcium Total Bilirubin AST ALT Alkaline Phosphatase Total Protein Albumin Urine Color Yellow Urine Appearance Slcloudy Urine pH 6.0 Ur Specific [place] 1.018 Urine Protein Negative Urine Glucose (UA) Negative Urine Ketones Negative Urine Blood Negative Urine Nitrite Negative Urine Bilirubin Negative Urine Urobilinogen 2.0 Ur Leukocyte Esterase Negative RPR Titer HIV 1&2 Antibody Screen Negative HIV P24 Antigen Negative LABS NOTED. Assessment: 06/13/17 15:47 COMPLETION OF DETOX REGIMEN. Plan: PATIENT SCHEDULED FOR DISCHARGE FROM DETOX UNIT TODAY.
--- NOTE | 2017-06-13 15:51 | DS ---
[facility] Detox Discharge Summary Admission Date: 06/07/17 Discharge Date: 06/13/17 - History Present History: Alcohol Dependence, Opioid Dependence Additional Comments: PATIENT GOING TO MOVE TO [place] WITH FAMILY MEMBER AND WILL PURSUE OUTPATIENT PROGRAM WHEN HE IS THERE. POSSIBLE PROGRAMS TO CONSIDER OFFERED TO PATIENT BY COUNSELOR. PATIENT WAS DISCHARGED FROM DETOX UNIT IN STABLE MEDICAL CONDITION. Pertinent Past History: HTN, Hypercholesterolemia, History of [place], Depression, Insomnia, Nicotine Dependence, History of [place]. - Physical Exam Results Vital Signs: Vital Signs Temperature 96.4 F L 06/13/17 06:18 Pulse Rate 57 L 06/13/17 06:18 Respiratory Rate 18 06/13/17 06:18 Blood Pressure 102/60 06/13/17 06:18 O2 Sat by Pulse Oximetry (%) Pertinent Admission Physical Exam Findings: WITHDRAWAL SYMPTOMS. Laboratory Tests 06/08/17 06/08/17 06/08/17 09:20 09:20 09:20 WBC 6.5 RBC 4.62 Hgb 14.0 Hct 41.3 MCV 89.5 MCH 30.4 MCHC 33.9 RDW 13.8 Plt Count 194 D MPV 10.3 Sodium 144 Potassium 3.3 L Chloride 104 Carbon Dioxide 32 Anion Gap 8 BUN 10 D Creatinine 0.9 Creat Clearance w eGFR > 60 Random Glucose 76 D Calcium 8.8 Total Bilirubin 0.6 D AST 12 L D ALT 20 Alkaline Phosphatase 75 Total Protein 7.5 Albumin 3.9 Urine Color Urine Appearance Urine pH Ur Specific [place] Urine Protein Urine Glucose (UA) Urine Ketones Urine Blood Urine Nitrite Urine Bilirubin Urine Urobilinogen Ur Leukocyte Esterase RPR Titer Nonreactive HIV 1&2 Antibody Screen HIV P24 Antigen 06/08/17 06/08/17 09:20 09:20 WBC RBC Hgb Hct MCV MCH MCHC RDW Plt Count MPV Sodium Potassium Chloride Carbon Dioxide Anion Gap BUN Creatinine Creat Clearance w eGFR Random Glucose Calcium Total Bilirubin AST ALT Alkaline Phosphatase Total Protein Albumin Urine Color Yellow Urine Appearance Slcloudy Urine pH 6.0 Ur Specific [place] 1.018 Urine Protein Negative Urine Glucose (UA) Negative Urine Ketones Negative Urine Blood Negative Urine Nitrite Negative Urine Bilirubin Negative Urine Urobilinogen 2.0 Ur Leukocyte Esterase Negative RPR Titer HIV 1&2 Antibody Screen Negative HIV P24 Antigen Negative LABS NOTED. - Treatment Hospital Course: Detox Protocol Followed, Detoxed Safely, Responded well, Discharged Condition Good Patient has Accepted a Rehab Referral to: PT MOVING TO [place], [place]; WILL PURSUE OUTPATIENT PROGRAM ONCE THERE. - Medication Discharge Medications: Ambulatory Orders NK [No Known Home Medication] 02/27/17 - Diagnosis (1) Opioid dependence with withdrawal Status: Acute (2) Depression Status: Chronic Qualifiers: Depression Type: unspecified Qualified Code(s): F32.9 - Major depressive disorder, single episode, unspecified (3) Nicotine dependence Status: Acute Qualifiers: Nicotine product type: cigarettes Substance use status: uncomplicated Qualified Code(s): F17.210 - Nicotine dependence, cigarettes, uncomplicated (4) Alcohol dependence with uncomplicated withdrawal Status: Acute (5) Hypertension Status: Acute Qualifiers: Hypertension type: essential hypertension Qualified Code(s): I10 - Essential (primary) hypertension (6) Insomnia Status: Acute Qualifiers: Insomnia type: unspecified Qualified Code(s): G47.00 - Insomnia, unspecified (7) Substance induced mood disorder Status: Acute - AMA Did Patient Leave Against Medical Advice: No
== END 2017-06-13 08:25 | disposition home or self-care (01) | DRG 773 ==
LOC: YASAS 20:58 → Y3N 23:03
PROVIDERS: ADMIT Internal Medicine; ATTEND Internal Medicine
PROC: HZ2ZZZZ Detoxification Services for Substance Abuse Treatment (ICD-10-PCS; principal; 2017-06-07)
DX: F11.23 Opioid dependence with withdrawal (principal); F10.230 Alcohol dependence with withdrawal, uncomplicated; F17.213 Nicotine dependence, cigarettes, with withdrawal; F19.24 Other psychoactive substance dependence with psychoactive substance-induced mood disorder; F32.9 Major depressive disorder, single episode, unspecified; G47.00 Insomnia, unspecified; I10 Essential (primary) hypertension; E78.00 Pure hypercholesterolemia, unspecified; I25.2 Old myocardial infarction; Z59.0 Homelessness
CPT/HCPCS: 36415; 80053; 81003; 85027; 86593; 87389; 93005; 93010; Q0162

== ENCOUNTER 2017-07-13 09:12 | Inpatient (IN) | payer OTHER ==
[2017-07-13 12:15] VITALS: BMI 23.6
--- NOTE | 2017-07-13 14:07 | HP ---
COWS - Scale Resting Pulse: 1= [place] 81-100 Sweatin= Chills/Flushing Restless Observation: 1= Difficult to Sit Still Pupil Size: 0= Normal to Room Light Bone or Joint Aches: 1= Mild Discomfort Runny Nose/ Eye Tearin= Runny Nose/Eyes GI Upset > 30mins: 2= Nausea/Diarrhea Tremor Observation: 2= Slight Tremor Visible Yawning Observation: 1= 1-2x During Session Anxiety or Irritability: 1=Feels Anxious/Irritable Goose Flesh Skin: 0=Smooth Skin COWS Score: 12 Admission ROS S - HPI Chief Complaint: I hate my life, I can't get away from this drug, I can't stop. Allergies/Adverse Reactions: Allergies Allergy/AdvReac Type Severity Reaction Status Date / Time shellfish derived Allergy Severe Swelling Verified 06/07/17 23:15 tomato Allergy Severe Swelling Verified 06/07/17 23:15 Fish Containing Products Allergy Mild Rash Verified 06/07/17 23:15 No Known Drug Allergies Allergy Verified 06/07/17 23:15 cheese AdvReac Intermediate Swelling Verified 06/07/17 23:15 History of Present Illness: 52 yo gentleman here for detox from alcohol and heroin - this is one of multiple admissions for treatment, last [facility]07[facility]. 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 [facility] has had overdoses - most recently in [place] a few weeks ago. No seizures but does have black outs. Although he drinks, states not alot and not daily, does not drink first thing and does not get withdrawal symptoms if he does not drink.. Exam Limitations: Clinical Condition - Ebola screening Have you traveled outside of the country in the last 21 days: No (N) Have you had contact with anyone from an Ebola affected area: No Have you been sick,other than usual withdrawal symptoms: No Do you have a fever: No - Review of Systems Constitutional: Loss of Appetite, Malaise, Changes in sleep, Weakness EENT: reports: Nose Congestion Respiratory: reports: No Symptoms reported Cardiac: reports: No Symptoms Reported GI: reports: Nausea, Poor Appetite, Abdominal cramping : reports: Burning Musculoskeletal: reports: Back Pain, Muscle Pain Integumentary: reports: No Symptoms Reported Neuro: reports: Headache, Tremors Endocrine: reports: No Symptoms Reported Hematology: reports: No Symptoms Reported Psychiatric: reports: Judgement Intact, Mood/Affect Appropiate, Anxious Other Systems: Reviewed and Negative Patient History - Patient Medical History Hx Anemia: No Hx Asthma: No Hx Chronic Obstructive Pulmonary Disease (COPD): No Hx Cancer: No Hx Cardiac Disorders: Yes (MO approx. 10 years ago.) Hx Congestive Heart Failure: No Hx Hypertension: Yes (no meds) Hx Hypercholesterolemia: Yes (non adherent) Hx Pacemaker: No HX Cerebrovascular Accident: No Hx Seizures: No Hx Dementia: No Hx Diabetes: No Hx Gastrointestinal Disorders: No Hx Liver Disease: No Hx Genitourinary Disorders: No Hx Sexually Transmitted Disorders: No Hx Renal Disease (ESRD): No Hx Thyroid Disease: No Hx Human Immunodeficiency Virus (HIV): No (Last Tested: 01/27: NEGATIVE) Hx Hepatitis C: No Hx Depression: Yes (hx meds, hospitalized in [place] a month ago) Hx Suicide Attempt: No (PATIENT DENIES CURRENT SI / HI.) Hx Bipolar Disorder: No Hx Schizophrenia: No - Patient Surgical History Past Surgical History: No Hx Neurologic Surgery: No Hx Cataract Extraction: No Hx Cardiac Surgery: No Hx Lung Surgery: No Hx Breast Surgery: No Hx Breast Biopsy: No Hx Abdominal Surgery: No Hx Appendectomy: No Hx Cholecystectomy: No Hx Genitourinary Surgery: No Hx Section: No Hx Orthopedic Surgery: No Anesthesia Reaction: No - PPD History Previous Implant?: Yes Documented Results: Positive w/proof Implanted On Prior [facility] Admission?: Yes Date: 03/01/17 Results: 0MM PPD to be Administered?: Yes - Reproductive History Patient is a Female of Child Bearing Age (11 -55 yrs old): No (male) - Smoking Cessation Smoking history: Current every day smoker Have you smoked in the past 12 months: Yes Aproximately how many cigarettes per day: 20 Cigars Per Day: 0 Hx Chewing Tobacco Use: No Initiated information on smoking cessation: Yes 'Breaking Loose' booklet given: 07/13/17 (give on floor) - Substance & Tx. History Hx Alcohol Use: Yes (on and off, not every day) Hx Substance Use: Yes Substance Use Type: Alcohol, Heroin Hx Substance Use Treatment: Yes (hx detox, suboxone, rehab, methadone program years ago) - Substances Abused Heroin Route: Inhalation Frequency: Daily Amount used: 8 bags Age of first use: 14 Date of Last Use: 07/12/17 Alcohol Route: Oral Frequency: 1-2 times per week Amount used: one six pack 22 oz Age of first use: 14 Date of Last Use: 07/10/17 Family Disease History - Family Disease History Family Disease History: Heart Disease: Father ([place],), Mother (ETOH DEPENDENT AND ,MO), Brother ([place]; Bipolar Disorder.), Sister ([place]), Other: Mother, Brother, Son (2 sons - one in MVA, one son with Downs), Daughter (one daughter murdered (thrown out window)) Admission Physical Exam [facility] - Vital Signs Vital Signs: Vital Signs - 24 hr 07/13/17 12:13 Temperature 98 F Pulse Rate 91 H Respiratory 18 Rate Blood Pressure 144/81 - Physical General Appearance: Yes: Nourished, Appropriately Dressed, Moderate Distress, Anxious HEENTM: Yes: Hearing grossly Normal, Normal ENT Inspection, Normocephalic, Normal Voice, Pharynx Normal, Other (poor dentition) Respiratory: Yes: Normal Breath Sounds, No Respiratory Distress Neck: Yes: No masses,lesions,Nodules, Supple Breast: Yes: Breast Exam Deferred Cardiology: Yes: Regular Rhythm, Regular Rate Abdominal: Yes: Non Tender, Flat Genitourinary: Yes: Burning Back: Yes: Normal Inspection Musculoskeletal: Yes: full range of Motion, Gait Steady Extremities: Yes: Normal Inspection, Normal Range of Motion, Non-Tender Neurological: Yes: Fully Oriented, Alert, Motor Strength 5/5, Normal Mood/Affect , Normal Response Integumentary: Yes: Normal Color, Dry, Warm Lymphatic: Yes: Within Normal Limits - Diagnostic (1) Opioid dependence with withdrawal Current Visit: Yes Status: Acute (2) Nicotine dependence, uncomplicated Current Visit: Yes Status: Chronic Qualifiers: Nicotine product type: cigarettes Qualified Code(s): F17.210 - Nicotine dependence, cigarettes, uncomplicated (3) History of [place] (myocardial infarction) Current Visit: Yes Status: Resolved (4) Borderline high blood pressure Current Visit: Yes Status: Chronic (5) Hypercholesterolemia Current Visit: Yes Status: Chronic Cleared for Admission [facility] - Detox or Rehab [facility] Level of Care: Medically Managed Detox Regimen/Protocol: Methadone BHS Breath Alcohol Content Breath Alcohol Content: 0 Urine Drug Screen - Results Drug Screen Negative: No Urine Drug Screen Results: OPI-Opiates
[2017-07-13] MEDS ORDERED: P-EPHED 60MG/TRIPROLIDI 2.5MG TABLET PO PRN (14:31)
[2017-07-13] MEDS ORDERED: MAGNESIUM HYDROX 2400MG/30ML ORAL SUSPENSION 30 ML CUP PO PRN (14:31)
[2017-07-13] MEDS ORDERED: guaiFENesin/D-METHORPHAN HB 10 ML UNIT-DOSE CUPS PO PRN (14:31)
[2017-07-13] MEDS ORDERED: ACETAMINOPHEN 325 MG TABLET (FP) PO PRN (14:31)
[2017-07-13] MEDS ORDERED: IBUPROFEN 400 MG TABLET (FP) PO PRN (14:31)
[2017-07-13] MEDS ORDERED: MAG HYDROX/AL HYDROX/SIMETH 30 ML UNIT-DOSE CUP PO PRN (14:31)
[2017-07-13] MEDS ORDERED: LOPERAMIDE HCL 2 MG CAPSULE PO PRN (14:31)
[2017-07-13] MEDS ORDERED: hydrOXYzine PAMOATE 50 MG CAPSULE (FP) PO PRN (14:31)
[2017-07-13] MEDS ORDERED: MENTHOL/PHENOL 1 EACH UD MM PRN (14:31)
[2017-07-13] MEDS ORDERED: MAGNESIUM CITRATE 300 ML BOTTLE PO PRN (14:31)
[2017-07-13] MEDS ORDERED: METHADONE HCL 10 MG TABLET (FOR DETOX USE ONLY) PO ONE ×2 (17:30→23:00)
[2017-07-13] MEDS: diazePAM 5 MG TABLET PO PRN ×2 (18:33→22:13)
[2017-07-13] MEDS: NICOTINE 21 MG/24 HOURS TOPICAL PATCH TD SCH (18:34)
[2017-07-13] MEDS: THIAMINE HCL 100 MG TABLET (FP) PO SCH (22:12)
[2017-07-14] MEDS ORDERED: METHADONE HCL 10 MG TABLET (FOR DETOX USE ONLY) PO ONE (10:00)
[2017-07-14] MEDS: PRENATAL VITAMINS W/ FOLIC ACID TABLET (FP) PO SCH (10:04)
[2017-07-14] MEDS: NICOTINE 21 MG/24 HOURS TOPICAL PATCH TD SCH (10:05)
[2017-07-14 10:56] LABS: HEMATOCRIT 41.8 % (35.4-49); HEMOGLOBIN 13.6 GM/dL (11.7-16.9); MCH 29.9 pg (25.7-33.7); MCHC 32.6 g/dl (32.0-35.9); MEAN CELL VOLUME 91.6 fl (80-96); MEAN PLT VOLUME 9.9 fl (7.5-11.1); PLATELET COUNT 230 K/MM3 (134-434); RBC 4.57 M/mm3 (4.00-5.60); RDW 14.2 % (11.9-15.9); WHITE BLOOD COUNT 5.9 K/mm3 (4.0-10.0)
[2017-07-14 11:07] LABS: URINE APPEARANCE TURBID; URINE BILIRUBIN NEGATIVE (<2.0 mg/dL); URINE BLOOD NEGATIVE (NEGATIVE); URINE COLOR AMBER; URINE GLUCOSE (UA) NEGATIVE (NEGATIVE); URINE KETONE NEGATIVE (NEGATIVE); URINE LEUK ESTERASE NEGATIVE (NEGATIVE); URINE NITRITE NEGATIVE (NEGATIVE); URINE UROBILINOGEN NEGATIVE mg/dL (0.2-1.0)
[2017-07-14 11:23] LABS: URINE PROTEIN 1+ (NEGATIVE)
[2017-07-14 11:27] LABS: EPI CELLS RARE /HPF (FEW); URINE MUCUS MANY
--- NOTE | 2017-07-14 11:54 | CONSULT ---
[facility] Psychiatric Consult - Data Date of interview: 07/14/17 Admission source: Self-referred Identifying data: Mr Dobson is a 52 years old single , father of 3 children, unemployed on food stamp, homeless seeking detox treatment alcohol and opioid Substance Abuse History: Reports history of alcohol and heroin use. Refer to addiction counselor's summary for further information Medical History: Significant for hypertension, dyslipidemia, history of treatment for myocardial infarction 10 years ago. Smokes cigarettes 1ppd Psychiatric History: Reports being diagnosed with depression at age 17 and started on medication. Reports multiple psychiatric admissions to various facilities including [facility] and recently [facility] in May 2017 and [facility] in [place] 3 weeks ago. Reports that he was discharged on Seroquel and Ambien from [place]. According to pharmacy claims, scripts for Zoloft 50 mg and Trazadone 50 mg were filled on . Reports no current [employer]PD care and not on medication. At present, reports feeling mildly depressed but sleeping well. Requests to resume Zoloft Physical/Sexual Abuse/Trauma History: Denies history of emotional, physical or sexual abuse as well DV relationship Additional Comment: Reports history of multiple previous arrests including 3 felony convictions. Denies being om parole/probation at present Mental Status Exam - Mental Status Exam Alert and Oriented to: Time, Place, Person Cognitive Function: Fair Patient Appearance: Well Groomed Mood: Depressed (mildly) Affect: Appropriate Patient Behavior: Cooperative Speech Pattern: Clear Voice Loudness: Normal Thought Process: Intact, Goal Oriented Hallucinations: Denies Suicidal Ideation: Denies Homicidal Ideation: Denies Insight/Judgement: Poor Sleep: Well Appetite: Good Muscle strength/Tone: Normal Gait/Station: Normal Psychiatric Findings - Problem List ([place] 1, 2,3) (1) MDD (major depressive disorder) Current Visit: No Status: Chronic (2) Substance induced mood disorder Current Visit: Yes Status: Acute (3) Alcohol dependence with uncomplicated withdrawal Current Visit: No Status: Acute (4) Opioid dependence with withdrawal Current Visit: Yes Status: Acute (5) Nicotine dependence, uncomplicated Current Visit: Yes Status: Chronic Qualifiers: Nicotine product type: cigarettes Qualified Code(s): F17.210 - Nicotine dependence, cigarettes, uncomplicated (6) Hypercholesterolemia Current Visit: Yes Status: Chronic (7) History of [place] (myocardial infarction) Current Visit: Yes Status: Resolved (8) Hypertension Current Visit: No Status: Chronic Qualifiers: Hypertension type: essential hypertension Qualified Code(s): I10 - Essential (primary) hypertension - Initial Treatment Plan Initial Treatment Plan: 1) Start Zoloft 50 mg po daily. 2) Continue inpatient detoxification
[2017-07-14 12:12] LABS: ALBUMIN 3.8 g/dl (3.4-5.0); ALK PHOS 91 U/L (45-117); ANION GAP 10 (8-16); BILIRUBIN,TOTAL 0.4 mg/dL (0.2-1.0); BLOOD UREA NITROGEN 12 mg/dL (7-18); CALCIUM 8.6 mg/dL (8.5-10.1); CHLORIDE 104 mmol/L (98-107); CO2 29 mmol/L (21-32); GLUCOSE,RANDOM 93 mg/dL (74-106); SGOT/AST 6 U/L (15-37); SGPT/ALT 18 U/L (12-78); SODIUM 143 mmol/L (136-145); TOT PROT 7.4 g/dl (6.4-8.2)
--- NOTE | 2017-07-14 13:30 | PN ---
BHS COWS - Scale Resting Pulse: 0= [place] 80 or Below Sweatin= Chills/Flushing Restless Observation: 1= Difficult to Sit Still Pupil Size: 1= Pupils >than Normal Bone or Joint Aches: 2= Severe Diffuse Aches Runny Nose/ Eye Tearin= Nasal Congestion GI Upset > 30mins: 1= Stomach Cramp Tremor Observation of Outstretched Hands: 2= Slight Tremor Visible Yawning Observation: 1= 1-2x During Session Anxiety or Irritability: 1=Feels Anxious/Irritable Goose Flesh Skin: 0=Smooth Skin COWS Score: 11 BHS Progress Note (SOAP) Subjective: joint pain body ache tremor sweat anxiety restlessness trouble sleep at night Objective: 07/14/17 13:31 Vital Signs Temperature 98.1 F 07/14/17 09:18 Pulse Rate 73 07/14/17 09:18 Respiratory Rate 18 07/14/17 09:18 Blood Pressure 121/69 07/14/17 09:18 O2 Sat by Pulse Oximetry (%) Laboratory Last Values WBC 5.9 K/mm3 (4.0-10.0) 07/14/17 07:40 RBC 4.57 M/mm3 (4.00-5.60) 07/14/17 07:40 Hgb 13.6 GM/dL (11.7-16.9) 07/14/17 07:40 Hct 41.8 % (35.4-49) 07/14/17 07:40 MCV 91.6 fl (80-96) 07/14/17 07:40 MCH 29.9 pg (25.7-33.7) 07/14/17 07:40 MCHC 32.6 g/dl (32.0-35.9) 07/14/17 07:40 RDW 14.2 % (11.9-15.9) 07/14/17 07:40 Plt Count 230 K/MM3 (134-434) 07/14/17 07:40 MPV 9.9 fl (7.5-11.1) 07/14/17 07:40 Sodium 143 mmol/L (136-145) 07/14/17 07:40 Potassium 4.0 mmol/L (3.5-5.1) D 07/14/17 07:40 Chloride 104 mmol/L (98-107) 07/14/17 07:40 Carbon Dioxide 29 mmol/L (21-32) 07/14/17 07:40 Anion Gap 10 (8-16) 07/14/17 07:40 BUN 12 mg/dL (7-18) 07/14/17 07:40 Creatinine 1.0 mg/dL (0.7-1.3) 07/14/17 07:40 Creat Clearance w eGFR > 60 (>60) 07/14/17 07:40 Random Glucose 93 mg/dL (74-106) D 07/14/17 07:40 Calcium 8.6 mg/dL (8.5-10.1) 07/14/17 07:40 Total Bilirubin 0.4 mg/dL (0.2-1.0) D 07/14/17 07:40 AST 6 U/L (15-37) L D 07/14/17 07:40 ALT 18 U/L (12-78) 07/14/17 07:40 Alkaline Phosphatase 91 U/L (45-117) D 07/14/17 07:40 Total Protein 7.4 g/dl (6.4-8.2) 07/14/17 07:40 Albumin 3.8 g/dl (3.4-5.0) 07/14/17 07:40 Urine Color Rachel 07/14/17 08:15 Urine Appearance Turbid 07/14/17 08:15 Urine pH 5.0 (5.0-8.0) 07/14/17 08:15 Ur Specific [place] 1.027 (1.001-1.035) 07/14/17 08:15 Urine Protein 1+ (NEGATIVE) H 07/14/17 08:15 Urine Glucose (UA) Negative (NEGATIVE) 07/14/17 08:15 Urine Ketones Negative (NEGATIVE) 07/14/17 08:15 Urine Blood Negative (NEGATIVE) 07/14/17 08:15 Urine Nitrite Negative (NEGATIVE) 07/14/17 08:15 Urine Bilirubin Negative (<2.0 mg/dL) 07/14/17 08:15 Urine Urobilinogen Negative mg/dL (0.2-1.0) 07/14/17 08:15 Ur Leukocyte Esterase Negative (NEGATIVE) 07/14/17 08:15 Urine WBC (Auto) None /hpf (3-5) 07/14/17 08:15 Urine RBC (Auto) None /hpf (0-3) 07/14/17 08:15 Ur Epithelial Cells Rare /HPF (FEW) 07/14/17 08:15 Urine Mucus Many 07/14/17 08:15 RPR Titer Nonreactive (NONREACTIVE) 07/14/17 07:40 lab noted Assessment: 07/14/17 13:31 withdrawal sx Plan: continue detox
[2017-07-14] MEDS: SERTRALINE HCL 50 MG TABLET (FP) PO SCH (14:10)
[2017-07-14] MEDS: THIAMINE HCL 100 MG TABLET (FP) PO SCH (22:09)
[2017-07-14] MEDS: diazePAM 5 MG TABLET PO PRN (22:09)
--- NOTE | 2017-07-14 22:42 | EKG ---
Test Reason : Blood Pressure : / mmHG Vent. Rate : 075 BPM Atrial Rate : 075 BPM P-R Int : 126 ms QRS Dur : 080 ms QT Int : 370 ms P-R-T Axes : 001 076 026 degrees QTc Int : 413 ms NORMAL SINUS RHYTHM NONSPECIFIC T WAVE ABNORMALITY ABNORMAL ECG WHEN COMPARED WITH ECG OF 08-JUN-2017 01:01, NONSPECIFIC T WAVE ABNORMALITY NOW EVIDENT IN LATERAL LEADS Confirmed by SHINE DODSON MD ([id number]) on 07/14/2017 10:42:24 PM Referred By: Confirmed By:SHINE DODSON MD
[2017-07-15] MEDS ORDERED: METHADONE HCL 5 MG TABLET (FOR DETOX USE ONLY) PO ONE (10:00)
[2017-07-15] MEDS: diazePAM 5 MG TABLET PO PRN (10:33)
[2017-07-15] MEDS: SERTRALINE HCL 50 MG TABLET (FP) PO SCH (10:33)
[2017-07-15] MEDS: PRENATAL VITAMINS W/ FOLIC ACID TABLET (FP) PO SCH (10:33)
[2017-07-15] MEDS: NICOTINE 21 MG/24 HOURS TOPICAL PATCH TD SCH (10:35)
--- NOTE | 2017-07-15 11:36 | PN ---
BHS COWS - Scale Resting Pulse: 0= [place] 80 or Below Sweatin= Chills/Flushing Restless Observation: 1= Difficult to Sit Still Pupil Size: 1= Pupils >than Normal Bone or Joint Aches: 2= Severe Diffuse Aches Runny Nose/ Eye Tearin= Nasal Congestion GI Upset > 30mins: 1= Stomach Cramp Tremor Observation of Outstretched Hands: 1= Tremor [place], Not Seen Yawning Observation: 1= 1-2x During Session Anxiety or Irritability: 1=Feels Anxious/Irritable Goose Flesh Skin: 0=Smooth Skin COWS Score: 10 S Progress Note (SOAP) Subjective: joint pain body ache tremor irritable anxiety Objective: 07/15/17 11:39 Vital Signs Temperature 98.2 F 07/15/17 09:48 Pulse Rate 75 07/15/17 09:48 Respiratory Rate 18 07/15/17 09:48 Blood Pressure 114/64 07/15/17 09:48 O2 Sat by Pulse Oximetry (%) Laboratory Last Values WBC 5.9 K/mm3 (4.0-10.0) 07/14/17 07:40 RBC 4.57 M/mm3 (4.00-5.60) 07/14/17 07:40 Hgb 13.6 GM/dL (11.7-16.9) 07/14/17 07:40 Hct 41.8 % (35.4-49) 07/14/17 07:40 MCV 91.6 fl (80-96) 07/14/17 07:40 MCH 29.9 pg (25.7-33.7) 07/14/17 07:40 MCHC 32.6 g/dl (32.0-35.9) 07/14/17 07:40 RDW 14.2 % (11.9-15.9) 07/14/17 07:40 Plt Count 230 K/MM3 (134-434) 07/14/17 07:40 MPV 9.9 fl (7.5-11.1) 07/14/17 07:40 Sodium 143 mmol/L (136-145) 07/14/17 07:40 Potassium 4.0 mmol/L (3.5-5.1) D 07/14/17 07:40 Chloride 104 mmol/L (98-107) 07/14/17 07:40 Carbon Dioxide 29 mmol/L (21-32) 07/14/17 07:40 Anion Gap 10 (8-16) 07/14/17 07:40 BUN 12 mg/dL (7-18) 07/14/17 07:40 Creatinine 1.0 mg/dL (0.7-1.3) 07/14/17 07:40 Creat Clearance w eGFR > 60 (>60) 07/14/17 07:40 Random Glucose 93 mg/dL (74-106) D 07/14/17 07:40 Calcium 8.6 mg/dL (8.5-10.1) 07/14/17 07:40 Total Bilirubin 0.4 mg/dL (0.2-1.0) D 07/14/17 07:40 AST 6 U/L (15-37) L D 07/14/17 07:40 ALT 18 U/L (12-78) 07/14/17 07:40 Alkaline Phosphatase 91 U/L (45-117) D 07/14/17 07:40 Total Protein 7.4 g/dl (6.4-8.2) 07/14/17 07:40 Albumin 3.8 g/dl (3.4-5.0) 07/14/17 07:40 Urine Color Rachel 07/14/17 08:15 Urine Appearance Turbid 07/14/17 08:15 Urine pH 5.0 (5.0-8.0) 07/14/17 08:15 Ur Specific [place] 1.027 (1.001-1.035) 07/14/17 08:15 Urine Protein 1+ (NEGATIVE) H 07/14/17 08:15 Urine Glucose (UA) Negative (NEGATIVE) 07/14/17 08:15 Urine Ketones Negative (NEGATIVE) 07/14/17 08:15 Urine Blood Negative (NEGATIVE) 07/14/17 08:15 Urine Nitrite Negative (NEGATIVE) 07/14/17 08:15 Urine Bilirubin Negative (<2.0 mg/dL) 07/14/17 08:15 Urine Urobilinogen Negative mg/dL (0.2-1.0) 07/14/17 08:15 Ur Leukocyte Esterase Negative (NEGATIVE) 07/14/17 08:15 Urine WBC (Auto) None /hpf (3-5) 07/14/17 08:15 Urine RBC (Auto) None /hpf (0-3) 07/14/17 08:15 Ur Epithelial Cells Rare /HPF (FEW) 07/14/17 08:15 Urine Mucus Many 07/14/17 08:15 RPR Titer Nonreactive (NONREACTIVE) 07/14/17 07:40 lab noted Assessment: 07/15/17 11:39 withdrawal sx Plan: continue detox
[2017-07-15] MEDS: THIAMINE HCL 100 MG TABLET (FP) PO SCH (22:33)
[2017-07-16] MEDS ORDERED: METHADONE HCL 5 MG TABLET (FOR DETOX USE ONLY) PO ONE (10:00)
[2017-07-16] MEDS: SERTRALINE HCL 50 MG TABLET (FP) PO SCH (10:16)
[2017-07-16] MEDS: diazePAM 5 MG TABLET PO PRN (10:16)
[2017-07-16] MEDS: NICOTINE 21 MG/24 HOURS TOPICAL PATCH TD SCH (10:16)
[2017-07-16] MEDS: PRENATAL VITAMINS W/ FOLIC ACID TABLET (FP) PO SCH (10:16)
--- NOTE | 2017-07-16 11:47 | PN ---
BHS Progress Note (SOAP) Subjective: joint pain body ache sweat tremor irritable agitative restlessness Objective: 07/16/17 11:45 Vital Signs Temperature 98.4 F 07/16/17 09:13 Pulse Rate 74 07/16/17 09:13 Respiratory Rate 18 07/16/17 09:13 Blood Pressure 131/75 07/16/17 09:13 O2 Sat by Pulse Oximetry (%) Laboratory Last Values WBC 5.9 K/mm3 (4.0-10.0) 07/14/17 07:40 RBC 4.57 M/mm3 (4.00-5.60) 07/14/17 07:40 Hgb 13.6 GM/dL (11.7-16.9) 07/14/17 07:40 Hct 41.8 % (35.4-49) 07/14/17 07:40 MCV 91.6 fl (80-96) 07/14/17 07:40 MCH 29.9 pg (25.7-33.7) 07/14/17 07:40 MCHC 32.6 g/dl (32.0-35.9) 07/14/17 07:40 RDW 14.2 % (11.9-15.9) 07/14/17 07:40 Plt Count 230 K/MM3 (134-434) 07/14/17 07:40 MPV 9.9 fl (7.5-11.1) 07/14/17 07:40 Sodium 143 mmol/L (136-145) 07/14/17 07:40 Potassium 4.0 mmol/L (3.5-5.1) D 07/14/17 07:40 Chloride 104 mmol/L (98-107) 07/14/17 07:40 Carbon Dioxide 29 mmol/L (21-32) 07/14/17 07:40 Anion Gap 10 (8-16) 07/14/17 07:40 BUN 12 mg/dL (7-18) 07/14/17 07:40 Creatinine 1.0 mg/dL (0.7-1.3) 07/14/17 07:40 Creat Clearance w eGFR > 60 (>60) 07/14/17 07:40 Random Glucose 93 mg/dL (74-106) D 07/14/17 07:40 Calcium 8.6 mg/dL (8.5-10.1) 07/14/17 07:40 Total Bilirubin 0.4 mg/dL (0.2-1.0) D 07/14/17 07:40 AST 6 U/L (15-37) L D 07/14/17 07:40 ALT 18 U/L (12-78) 07/14/17 07:40 Alkaline Phosphatase 91 U/L (45-117) D 07/14/17 07:40 Total Protein 7.4 g/dl (6.4-8.2) 07/14/17 07:40 Albumin 3.8 g/dl (3.4-5.0) 07/14/17 07:40 Urine Color Rachel 07/14/17 08:15 Urine Appearance Turbid 07/14/17 08:15 Urine pH 5.0 (5.0-8.0) 07/14/17 08:15 Ur Specific [place] 1.027 (1.001-1.035) 07/14/17 08:15 Urine Protein 1+ (NEGATIVE) H 07/14/17 08:15 Urine Glucose (UA) Negative (NEGATIVE) 07/14/17 08:15 Urine Ketones Negative (NEGATIVE) 07/14/17 08:15 Urine Blood Negative (NEGATIVE) 07/14/17 08:15 Urine Nitrite Negative (NEGATIVE) 07/14/17 08:15 Urine Bilirubin Negative (<2.0 mg/dL) 07/14/17 08:15 Urine Urobilinogen Negative mg/dL (0.2-1.0) 07/14/17 08:15 Ur Leukocyte Esterase Negative (NEGATIVE) 07/14/17 08:15 Urine WBC (Auto) None /hpf (3-5) 07/14/17 08:15 Urine RBC (Auto) None /hpf (0-3) 07/14/17 08:15 Ur Epithelial Cells Rare /HPF (FEW) 07/14/17 08:15 Urine Mucus Many 07/14/17 08:15 RPR Titer Nonreactive (NONREACTIVE) 07/14/17 07:40 lab noted Assessment: 07/16/17 11:45 Vital Signs Temperature 98.4 F 07/16/17 09:13 Pulse Rate 74 07/16/17 09:13 Respiratory Rate 18 07/16/17 09:13 Blood Pressure 131/75 07/16/17 09:13 O2 Sat by Pulse Oximetry (%) Laboratory Last Values WBC 5.9 K/mm3 (4.0-10.0) 07/14/17 07:40 RBC 4.57 M/mm3 (4.00-5.60) 07/14/17 07:40 Hgb 13.6 GM/dL (11.7-16.9) 07/14/17 07:40 Hct 41.8 % (35.4-49) 07/14/17 07:40 MCV 91.6 fl (80-96) 07/14/17 07:40 MCH 29.9 pg (25.7-33.7) 07/14/17 07:40 MCHC 32.6 g/dl (32.0-35.9) 07/14/17 07:40 RDW 14.2 % (11.9-15.9) 07/14/17 07:40 Plt Count 230 K/MM3 (134-434) 07/14/17 07:40 MPV 9.9 fl (7.5-11.1) 07/14/17 07:40 Sodium 143 mmol/L (136-145) 07/14/17 07:40 Potassium 4.0 mmol/L (3.5-5.1) D 07/14/17 07:40 Chloride 104 mmol/L (98-107) 07/14/17 07:40 Carbon Dioxide 29 mmol/L (21-32) 07/14/17 07:40 Anion Gap 10 (8-16) 07/14/17 07:40 BUN 12 mg/dL (7-18) 07/14/17 07:40 Creatinine 1.0 mg/dL (0.7-1.3) 07/14/17 07:40 Creat Clearance w eGFR > 60 (>60) 07/14/17 07:40 Random Glucose 93 mg/dL (74-106) D 07/14/17 07:40 Calcium 8.6 mg/dL (8.5-10.1) 07/14/17 07:40 Total Bilirubin 0.4 mg/dL (0.2-1.0) D 07/14/17 07:40 AST 6 U/L (15-37) L D 07/14/17 07:40 ALT 18 U/L (12-78) 07/14/17 07:40 Alkaline Phosphatase 91 U/L (45-117) D 07/14/17 07:40 Total Protein 7.4 g/dl (6.4-8.2) 07/14/17 07:40 Albumin 3.8 g/dl (3.4-5.0) 07/14/17 07:40 Urine Color Rachel 07/14/17 08:15 Urine Appearance Turbid 07/14/17 08:15 Urine pH 5.0 (5.0-8.0) 07/14/17 08:15 Ur Specific [place] 1.027 (1.001-1.035) 07/14/17 08:15 Urine Protein 1+ (NEGATIVE) H 07/14/17 08:15 Urine Glucose (UA) Negative (NEGATIVE) 07/14/17 08:15 Urine Ketones Negative (NEGATIVE) 07/14/17 08:15 Urine Blood Negative (NEGATIVE) 07/14/17 08:15 Urine Nitrite Negative (NEGATIVE) 07/14/17 08:15 Urine Bilirubin Negative (<2.0 mg/dL) 07/14/17 08:15 Urine Urobilinogen Negative mg/dL (0.2-1.0) 07/14/17 08:15 Ur Leukocyte Esterase Negative (NEGATIVE) 07/14/17 08:15 Urine WBC (Auto) None /hpf (3-5) 07/14/17 08:15 Urine RBC (Auto) None /hpf (0-3) 07/14/17 08:15 Ur Epithelial Cells Rare /HPF (FEW) 07/14/17 08:15 Urine Mucus Many 07/14/17 08:15 RPR Titer Nonreactive (NONREACTIVE) 07/14/17 07:40 lab noted Plan: continue detox
[2017-07-16] MEDS: THIAMINE HCL 100 MG TABLET (FP) PO SCH (22:26)
[2017-07-16] MEDS: MELATONIN 5 MG TABLETS PO PRN (22:27)
[2017-07-17] MEDS ORDERED: METHADONE HCL 10 MG TABLET (FOR DETOX USE ONLY) PO ONE (10:00)
[2017-07-17] MEDS: PRENATAL VITAMINS W/ FOLIC ACID TABLET (FP) PO SCH (10:03)
[2017-07-17] MEDS: SERTRALINE HCL 50 MG TABLET (FP) PO SCH (10:04)
--- NOTE | 2017-07-17 10:12 | PN ---
BHS Progress Note (SOAP) Subjective: feeling better no tremor less sweat denies body ache social with peers in day room good appetite Objective: 07/17/17 10:09 Vital Signs Temperature 96.2 F L 07/17/17 06:26 Pulse Rate 60 07/17/17 06:26 Respiratory Rate 18 07/17/17 06:26 Blood Pressure 140/91 07/17/17 06:26 O2 Sat by Pulse Oximetry (%) Laboratory Last Values WBC 5.9 K/mm3 (4.0-10.0) 07/14/17 07:40 RBC 4.57 M/mm3 (4.00-5.60) 07/14/17 07:40 Hgb 13.6 GM/dL (11.7-16.9) 07/14/17 07:40 Hct 41.8 % (35.4-49) 07/14/17 07:40 MCV 91.6 fl (80-96) 07/14/17 07:40 MCH 29.9 pg (25.7-33.7) 07/14/17 07:40 MCHC 32.6 g/dl (32.0-35.9) 07/14/17 07:40 RDW 14.2 % (11.9-15.9) 07/14/17 07:40 Plt Count 230 K/MM3 (134-434) 07/14/17 07:40 MPV 9.9 fl (7.5-11.1) 07/14/17 07:40 Sodium 143 mmol/L (136-145) 07/14/17 07:40 Potassium 4.0 mmol/L (3.5-5.1) D 07/14/17 07:40 Chloride 104 mmol/L (98-107) 07/14/17 07:40 Carbon Dioxide 29 mmol/L (21-32) 07/14/17 07:40 Anion Gap 10 (8-16) 07/14/17 07:40 BUN 12 mg/dL (7-18) 07/14/17 07:40 Creatinine 1.0 mg/dL (0.7-1.3) 07/14/17 07:40 Creat Clearance w eGFR > 60 (>60) 07/14/17 07:40 Random Glucose 93 mg/dL (74-106) D 07/14/17 07:40 Calcium 8.6 mg/dL (8.5-10.1) 07/14/17 07:40 Total Bilirubin 0.4 mg/dL (0.2-1.0) D 07/14/17 07:40 AST 6 U/L (15-37) L D 07/14/17 07:40 ALT 18 U/L (12-78) 07/14/17 07:40 Alkaline Phosphatase 91 U/L (45-117) D 07/14/17 07:40 Total Protein 7.4 g/dl (6.4-8.2) 07/14/17 07:40 Albumin 3.8 g/dl (3.4-5.0) 07/14/17 07:40 Urine Color Rachel 07/14/17 08:15 Urine Appearance Turbid 07/14/17 08:15 Urine pH 5.0 (5.0-8.0) 07/14/17 08:15 Ur Specific [place] 1.027 (1.001-1.035) 07/14/17 08:15 Urine Protein 1+ (NEGATIVE) H 07/14/17 08:15 Urine Glucose (UA) Negative (NEGATIVE) 07/14/17 08:15 Urine Ketones Negative (NEGATIVE) 07/14/17 08:15 Urine Blood Negative (NEGATIVE) 07/14/17 08:15 Urine Nitrite Negative (NEGATIVE) 07/14/17 08:15 Urine Bilirubin Negative (<2.0 mg/dL) 07/14/17 08:15 Urine Urobilinogen Negative mg/dL (0.2-1.0) 07/14/17 08:15 Ur Leukocyte Esterase Negative (NEGATIVE) 07/14/17 08:15 Urine WBC (Auto) None /hpf (3-5) 07/14/17 08:15 Urine RBC (Auto) None /hpf (0-3) 07/14/17 08:15 Ur Epithelial Cells Rare /HPF (FEW) 07/14/17 08:15 Urine Mucus Many 07/14/17 08:15 RPR Titer Nonreactive (NONREACTIVE) 07/14/17 07:40 lab noted Assessment: 07/17/17 10:16 mild opiate withdrawal sx right upper tooth trouble on and off x 6 years blood pressure elevation Plan: medically supervised detox nystatin amlodopine
[2017-07-17] MEDS ORDERED: amLODIPine BESYLATE 5 MG TABLET (FP) PO SCH (10:15)
[2017-07-17] MEDS: NICOTINE 21 MG/24 HOURS TOPICAL PATCH TD SCH (10:35)
[2017-07-17] MEDS: NYSTATIN 500,000 UNITS/5 ML SUSPENSION PO SCH ×3 (14:49→23:52)
[2017-07-17 17:55] VITALS: PULSE 72
[2017-07-17] MEDS: MELATONIN 5 MG TABLETS PO PRN (22:18)
[2017-07-17] MEDS: THIAMINE HCL 100 MG TABLET (FP) PO SCH (22:18)
[2017-07-17 23:03] VITALS: BP 155/95; TEMP 98.1
[2017-07-18] MEDS ORDERED: METHADONE HCL 5 MG TABLET (FOR DETOX USE ONLY) PO ONE (06:00)
--- NOTE | 2017-07-18 08:39 | DS ---
[facility] Detox Discharge Summary Admission Date: 07/13/17 Discharge Date: 07/18/17 - History Present History: Opioid Dependence Additional Comments: 52 years old male admitted 07/13/17 for opiate withdrawal sx completed opiate detox regimen tolerated well patient left the detox facility early today for "work" as per conversation on patient will participate in community health services for hypertension oral care and addiction recovery - Physical Exam Results Vital Signs: Vital Signs Temperature 98.1 F 07/17/17 23:02 Pulse Rate 72 07/17/17 23:02 Respiratory Rate 18 07/18/17 03:30 Blood Pressure 155/95 07/17/17 23:02 O2 Sat by Pulse Oximetry (%) Pertinent Admission Physical Exam Findings: opiate withdrawal sx Vital Signs Temperature 98.1 F 07/17/17 23:02 Pulse Rate 72 07/17/17 23:02 Respiratory Rate 18 07/18/17 03:30 Blood Pressure 155/95 07/17/17 23:02 O2 Sat by Pulse Oximetry (%) Laboratory Last Values WBC 5.9 K/mm3 (4.0-10.0) 07/14/17 07:40 RBC 4.57 M/mm3 (4.00-5.60) 07/14/17 07:40 Hgb 13.6 GM/dL (11.7-16.9) 07/14/17 07:40 Hct 41.8 % (35.4-49) 07/14/17 07:40 MCV 91.6 fl (80-96) 07/14/17 07:40 MCH 29.9 pg (25.7-33.7) 07/14/17 07:40 MCHC 32.6 g/dl (32.0-35.9) 07/14/17 07:40 RDW 14.2 % (11.9-15.9) 07/14/17 07:40 Plt Count 230 K/MM3 (134-434) 07/14/17 07:40 MPV 9.9 fl (7.5-11.1) 07/14/17 07:40 Sodium 143 mmol/L (136-145) 07/14/17 07:40 Potassium 4.0 mmol/L (3.5-5.1) D 07/14/17 07:40 Chloride 104 mmol/L (98-107) 07/14/17 07:40 Carbon Dioxide 29 mmol/L (21-32) 07/14/17 07:40 Anion Gap 10 (8-16) 07/14/17 07:40 BUN 12 mg/dL (7-18) 07/14/17 07:40 Creatinine 1.0 mg/dL (0.7-1.3) 07/14/17 07:40 Creat Clearance w eGFR > 60 (>60) 07/14/17 07:40 Random Glucose 93 mg/dL (74-106) D 07/14/17 07:40 Calcium 8.6 mg/dL (8.5-10.1) 07/14/17 07:40 Total Bilirubin 0.4 mg/dL (0.2-1.0) D 07/14/17 07:40 AST 6 U/L (15-37) L D 07/14/17 07:40 ALT 18 U/L (12-78) 07/14/17 07:40 Alkaline Phosphatase 91 U/L (45-117) D 07/14/17 07:40 Total Protein 7.4 g/dl (6.4-8.2) 07/14/17 07:40 Albumin 3.8 g/dl (3.4-5.0) 07/14/17 07:40 Urine Color Rachel 07/14/17 08:15 Urine Appearance Turbid 07/14/17 08:15 Urine pH 5.0 (5.0-8.0) 07/14/17 08:15 Ur Specific [place] 1.027 (1.001-1.035) 07/14/17 08:15 Urine Protein 1+ (NEGATIVE) H 07/14/17 08:15 Urine Glucose (UA) Negative (NEGATIVE) 07/14/17 08:15 Urine Ketones Negative (NEGATIVE) 07/14/17 08:15 Urine Blood Negative (NEGATIVE) 07/14/17 08:15 Urine Nitrite Negative (NEGATIVE) 07/14/17 08:15 Urine Bilirubin Negative (<2.0 mg/dL) 07/14/17 08:15 Urine Urobilinogen Negative mg/dL (0.2-1.0) 07/14/17 08:15 Ur Leukocyte Esterase Negative (NEGATIVE) 07/14/17 08:15 Urine WBC (Auto) None /hpf (3-5) 07/14/17 08:15 Urine RBC (Auto) None /hpf (0-3) 07/14/17 08:15 Ur Epithelial Cells Rare /HPF (FEW) 07/14/17 08:15 Urine Mucus Many 07/14/17 08:15 RPR Titer Nonreactive (NONREACTIVE) 07/14/17 07:40 lab noted - Treatment Hospital Course: Detox Protocol Followed, Detoxed Safely, Responded well, Discharged Condition Good, Rehab Referral Accepted Patient has Accepted a Rehab Referral to: [facility] - Medication Discharge Medications: Ambulatory Orders Sertraline HCl [Zoloft -] 50 mg PO DAILY #30 tablet 07/14/17 Amlodipine Besylate [Norvasc -] 5 mg PO DAILY #30 tablet 07/18/17 Nystatin Oral Suspension - [Nystatin Oral Susp 411833 Units/5 ML -] 500,000 units PO Q6H #1 cup 07/18/17 - Diagnosis (1) Oral hygiene poor Status: Acute (2) Nicotine dependence Status: Acute Qualifiers: Nicotine product type: cigarettes Substance use status: in withdrawal Qualified Code(s): F17.213 - Nicotine dependence, cigarettes, with withdrawal (3) Substance induced mood disorder Status: Suspected (4) Weight loss Status: Acute (5) Hypertension Status: Chronic Qualifiers: Hypertension type: essential hypertension Qualified Code(s): I10 - Essential (primary) hypertension - AMA Did Patient Leave Against Medical Advice: No
== END 2017-07-18 05:13 | disposition home or self-care (01) | DRG 773 ==
LOC: YASAS 09:12 → Y6N 17:16
PROVIDERS: ADMIT Surgery; ATTEND Surgery
PROC: HZ2ZZZZ Detoxification Services for Substance Abuse Treatment (ICD-10-PCS; principal; 2017-07-13)
DX: F11.23 Opioid dependence with withdrawal (principal); F10.20 Alcohol dependence, uncomplicated; F17.213 Nicotine dependence, cigarettes, with withdrawal; F19.24 Other psychoactive substance dependence with psychoactive substance-induced mood disorder; F33.9 Major depressive disorder, recurrent, unspecified; E78.5 Hyperlipidemia, unspecified; I10 Essential (primary) hypertension; I25.2 Old myocardial infarction; K08.9 Disorder of teeth and supporting structures, unspecified; R03.0 Elevated blood-pressure reading, without diagnosis of hypertension; Z91.14 Patient's other noncompliance with medication regimen; Z91.011 Allergy to milk products; Z91.013 Allergy to seafood; Z87.898 Personal history of other specified conditions; Z59.0 Homelessness
CPT/HCPCS: 36415; 80053; 81003; 81015; 85027; 86593; 93005; 93010

== ENCOUNTER 2017-08-18 08:36 | Inpatient (IN) | payer OTHER ==
[2017-08-18 09:37] VITALS: BMI 24.0
--- NOTE | 2017-08-18 09:48 | HP ---
COWS - Scale Resting Pulse: 0= [place] 80 or Below Sweatin= Chills/Flushing Restless Observation: 3= Extraneous Movement Pupil Size: 2= Moderately Dilated Bone or Joint Aches: 2= Severe Diffuse Aches Runny Nose/ Eye Tearin= Runny Nose/Eyes GI Upset > 30mins: 3= Vomiting/Diarrhea Tremor Observation: 2= Slight Tremor Visible Yawning Observation: 1= 1-2x During Session Anxiety or Irritability: 2=Irritable/Anxious Goose Flesh Skin: 0=Smooth Skin COWS Score: 18 CIWA Score - CIWA Score Nausea/Vomitin Muscle Tremors: 3 Anxiety: 3 Agitation: 3 Paroxysmal Sweats: 1-Minimal Palms Moist Orientation: 0-Oriented Tacttile Disturbances: 1-Very Mild Itch/Numbness Auditory Disturbances: 1-Very Mild Visual Disturbances: 0-None Headache: 2-Mild CIWA-Ar Total Score: 17 Admission ROS BHS - HPI Chief Complaint: i need help to stop using heroin and alcohol Allergies/Adverse Reactions: Allergies Allergy/AdvReac Type Severity Reaction Status Date / Time shellfish derived Allergy Severe Swelling Verified 08/18/17 11:05 tomato Allergy Severe Swelling Verified 08/18/17 11:05 Fish Containing Products Allergy Mild Rash Verified 08/18/17 11:05 No Known Drug Allergies Allergy Verified 08/18/17 11:05 cheese AdvReac Intermediate Swelling Verified 08/18/17 11:05 History of Present Illness: this 52 years old male with heroin and alcohol dependence seeking detox, withdrawal symptom,last detox 07/13/17 to 07/18/17 syncope last 2017 hypertension and hypercholesterolemia non compliance multiple admissions in the past but keep relapsing nicotine dependence anxiety,depression,insomnia longest period sobriety 10 years Exam Limitations: No Limitations - Ebola screening Have you traveled outside of the country in the last 21 days: No (N) Have you had contact with anyone from an Ebola affected area: No Have you been sick,other than usual withdrawal symptoms: No Do you have a fever: No - Review of Systems Constitutional: Chills, Malaise, Night Sweats, Changes in sleep, Weakness, Weight Stable EENT: reports: Nose Congestion Respiratory: reports: No Symptoms reported Cardiac: reports: No Symptoms Reported GI: reports: Diarrhea, Nausea, Poor Appetite, Vomiting : reports: No Symptoms Reported Musculoskeletal: reports: Back Pain, Joint Pain, Muscle Pain Integumentary: reports: Dryness Neuro: reports: Headache, Tremors Endocrine: reports: No Symptoms Reported Hematology: reports: No Symptoms Reported, Lymph Node Abnormalities Psychiatric: reports: No Sypmtoms Reported, Mood/Affect Appropiate, Orientated x3, Anxious, Depressed Patient History - Patient Medical History Hx Anemia: No Hx Asthma: No Hx Chronic Obstructive Pulmonary Disease (COPD): No Hx Cancer: No Hx Cardiac Disorders: Yes (old mi at age of 39 admitted in [facility]) Hx Congestive Heart Failure: No Hx Hypertension: Yes (no medication) Hx Hypercholesterolemia: Yes (non adherent) Hx Pacemaker: No HX Cerebrovascular Accident: No Hx Seizures: No Hx Dementia: No Hx Diabetes: No Hx Gastrointestinal Disorders: No Hx Liver Disease: No Hx Genitourinary Disorders: No Hx Sexually Transmitted Disorders: No Hx Renal Disease (ESRD): No Hx Thyroid Disease: No Hx Human Immunodeficiency Virus (HIV): No (Last Tested: 08/15/17 NEGATIVE) Hx Hepatitis C: No Hx Depression: Yes (anxiety) Hx Suicide Attempt: No (PATIENT DENIES CURRENT SI / HI.) Hx Bipolar Disorder: No Hx Schizophrenia: No Other Medical History: insomnia,no suicidal ,no homicidal - Patient Surgical History Past Surgical History: No Hx Neurologic Surgery: No Hx Cataract Extraction: No Hx Cardiac Surgery: No Hx Lung Surgery: No Hx Breast Surgery: No Hx Breast Biopsy: No Hx Abdominal Surgery: No Hx Appendectomy: No Hx Cholecystectomy: No Hx Genitourinary Surgery: No Hx Section: No Hx Orthopedic Surgery: No Anesthesia Reaction: No - PPD History Previous Implant?: Yes Documented Results: Negative w/proof Implanted On Prior [facility] Admission?: Yes Date: 03/01/17 Results: 0MM PPD to be Administered?: No - Smoking Cessation Smoking history: Current every day smoker Have you smoked in the past 12 months: Yes Aproximately how many cigarettes per day: 20 Cigars Per Day: 0 Hx Chewing Tobacco Use: No Initiated information on smoking cessation: Yes 'Breaking Loose' booklet given: 08/18/17 - Substance & Tx. History Hx Alcohol Use: Yes Hx Substance Use: Yes Substance Use Type: Alcohol, Heroin, Marijuana Hx Substance Use Treatment: Yes ([facility] 07/13/17to 07/18/17) - Substances Abused Heroin Route: Inhalation Frequency: Daily Amount used: 10 bags Age of first use: 14 Date of Last Use: 08/16/17 Alcohol Route: Oral Frequency: 3-6 times per week Amount used: 3 of 40 ozs of beer Age of first use: 14 Date of Last Use: 08/16/17 Marijuana/Hashish Route: Smoking Frequency: 1-2 times per week Amount used: 10$ Age of first use: 10 Date of Last Use: 08/14/17 street methadone Route: Oral Frequency: 1-3 times last 30 days Amount used: 15 mgs Age of first use: 28 Date of Last Use: 08/15/17 Family Disease History - Family Disease History Family Disease History: Heart Disease: Father ([place],), Mother (ETOH DEPENDENT AND ,[place]), Brother ([place]; Bipolar Disorder.), Sister (NC), Other: Mother, Brother, Son (2 sons - one in MVA, one son with Downs), Daughter (one daughter murdered (thrown out window)) Admission Physical Exam [facility] - Vital Signs Vital Signs: Vital Signs - 24 hr 08/18/17 09:33 Temperature 99.1 F Pulse Rate 76 Respiratory 18 Rate Blood Pressure 118/73 - Physical General Appearance: Yes: Moderate Distress, Thin, Tremorous, Irritable, Sweating HEENTM: Yes: Pharynx Normal, Nasal Congestion Respiratory: Yes: Within Normal Limits, Lungs Clear Neck: Yes: Within Normal Limits, Supple, Trachea in good position Breast: Yes: Within Normal Limits Cardiology: Yes: Within Normal Limits, Regular Rhythm, S1, S2 Abdominal: Yes: Within Normal Limits, Normal Bowel Sounds, Non Tender, Soft Genitourinary: Yes: Within Normal Limits Back: Yes: Within Normal Limits, Normal Inspection, Muscle Spasm Musculoskeletal: Yes: Within Normal Limits, full range of Motion, Back pain Extremities: Yes: Normal Inspection, Tremors Neurological: Yes: plate cleaner II-XII NML intact, Fully Oriented, Alert, Motor Strength 5/5, Normal Mood/Affect Integumentary: Yes: Dry Lymphatic: Yes: Within Normal Limits - Diagnostic (1) Opioid dependence with withdrawal Current Visit: No Status: Acute (2) Alcohol dependence with uncomplicated withdrawal Current Visit: No Status: Acute (3) Nicotine dependence Current Visit: No Status: Acute Qualifiers: Nicotine product type: cigarettes Substance use status: in withdrawal Qualified Code(s): F17.213 - Nicotine dependence, cigarettes, with withdrawal (4) Cannabis dependence Current Visit: No Status: Chronic (5) Hypercholesterolemia Current Visit: No Status: Chronic (6) Hypertension Current Visit: No Status: Chronic Qualifiers: Hypertension type: essential hypertension Qualified Code(s): I10 - Essential (primary) hypertension (7) History of NC (myocardial infarction) Current Visit: No Status: Resolved Cleared for Admission S - Detox or Rehab [facility] Level of Care: Medically Managed Detox Regimen/Protocol: Methadone/Valium BHS Breath Alcohol Content Breath Alcohol Content: 0 Urine Drug Screen - Results Drug Screen Negative: No Urine Drug Screen Results: THC-Marijuana, MTD-Methadone
[2017-08-18] MEDS ORDERED: MAG HYDROX/AL HYDROX/SIMETH 30 ML UNIT-DOSE CUP PO PRN (10:07)
[2017-08-18] MEDS ORDERED: diazePAM 5 MG TABLET PO ONE (10:07)
[2017-08-18] MEDS ORDERED: MAGNESIUM CITRATE 300 ML BOTTLE PO PRN (10:07)
[2017-08-18] MEDS ORDERED: guaiFENesin/D-METHORPHAN HB 10 ML UNIT-DOSE CUPS PO PRN (10:07)
[2017-08-18] MEDS ORDERED: hydrOXYzine PAMOATE 25 MG CAPSULE (FP) PO PRN (10:07)
[2017-08-18] MEDS ORDERED: MAGNESIUM HYDROX 2400MG/30ML ORAL SUSPENSION 30 ML CUP PO PRN (10:07)
[2017-08-18] MEDS ORDERED: ACETAMINOPHEN 325 MG TABLET (FP) PO PRN (10:07)
[2017-08-18] MEDS ORDERED: diazePAM 5 MG TABLET PO PRN (10:07)
[2017-08-18] MEDS ORDERED: IBUPROFEN 400 MG TABLET (FP) PO PRN (10:07)
[2017-08-18] MEDS ORDERED: P-EPHED 60MG/TRIPROLIDI 2.5MG TABLET PO PRN (10:07)
[2017-08-18] MEDS ORDERED: METHADONE HCL 10 MG TABLET (FOR DETOX USE ONLY) PO ONE ×2 (10:07→23:00)
[2017-08-18] MEDS ORDERED: LOPERAMIDE HCL 2 MG CAPSULE PO PRN (10:07)
[2017-08-18] MEDS ORDERED: MENTHOL/PHENOL 1 EACH UD MM PRN (10:07)
[2017-08-18] MEDS ORDERED: CYCLOBENZAPRINE HCL 10 MG TABLET (FP) PO PRN (10:12)
[2017-08-18] MEDS: NICOTINE 21 MG/24 HOURS TOPICAL PATCH TD SCH (11:55)
[2017-08-18] MEDS: diazePAM 5 MG TABLET PO SCH ×2 (14:24→22:12)
[2017-08-18 19:28] LABS: URINE APPEARANCE CLEAR; URINE BILIRUBIN NEGATIVE (<2.0 mg/dL); URINE COLOR LTYELLOW; URINE GLUCOSE (UA) NEGATIVE (NEGATIVE); URINE KETONE NEGATIVE (NEGATIVE); URINE LEUK ESTERASE NEGATIVE (NEGATIVE); URINE NITRITE NEGATIVE (NEGATIVE); URINE PROTEIN NEGATIVE (NEGATIVE); URINE UROBILINOGEN NEGATIVE mg/dL (0.2-1.0)
[2017-08-18] MEDS ORDERED: MELATONIN 5 MG TABLETS PO PRN (22:00)
[2017-08-18] MEDS: THIAMINE HCL 100 MG TABLET (FP) PO SCH (22:12)
[2017-08-18] MEDS: cloNIDine HCL 0.1 MG TABLET PO SCH (22:13)
[2017-08-19] MEDS: diazePAM 5 MG TABLET PO SCH ×3 (05:44→22:11)
[2017-08-19 09:47] LABS: HEMATOCRIT 39.2 % (35.4-49); HEMOGLOBIN 12.9 GM/dL (11.7-16.9); MCH 29.2 pg (25.7-33.7); MCHC 32.9 g/dl (32.0-35.9); MEAN CELL VOLUME 88.8 fl (80-96); PLATELET COUNT 219 K/MM3 (134-434); RBC 4.41 M/mm3 (4.00-5.60); RDW 13.9 % (11.9-15.9); WHITE BLOOD COUNT 11.3 K/mm3 (4.0-10.0)
[2017-08-19] MEDS ORDERED: METHADONE HCL 10 MG TABLET (FOR DETOX USE ONLY) PO SCH (10:00)
[2017-08-19] MEDS: PRENATAL VITAMINS W/ FOLIC ACID TABLET (FP) PO SCH (10:28)
[2017-08-19] MEDS: cloNIDine HCL 0.1 MG TABLET PO SCH ×2 (10:28→22:10)
[2017-08-19] MEDS: NICOTINE 21 MG/24 HOURS TOPICAL PATCH TD SCH (10:35)
[2017-08-19 11:10] LABS: ALBUMIN 3.2 g/dl (3.4-5.0); ANION GAP 5 (8-16); BLOOD UREA NITROGEN 11 mg/dL (7-18); CALCIUM 8.2 mg/dL (8.5-10.1); CHLORIDE 106 mmol/L (98-107); CO2 32 mmol/L (21-32); GLUCOSE,RANDOM 82 mg/dL (74-106); SODIUM 143 mmol/L (136-145)
[2017-08-19 11:14] LABS: ALK PHOS 65 U/L (45-117); BILIRUBIN,TOTAL 0.3 mg/dL (0.2-1.0); CREATININE 0.9 mg/dL (0.7-1.3); SGOT/AST 10 U/L (15-37); SGPT/ALT 19 U/L (12-78); TOT PROT 6.2 g/dl (6.4-8.2)
--- NOTE | 2017-08-19 14:11 | PN ---
S CIWA - CIWA Score Nausea/Vomitin-No Nausea/No Vomiting Muscle Tremors: 4-Moderate,w/Arms Extend Anxiety: 5 Agitation: 4-Moderately Restless Paroxysmal Sweats: 1-Minimal Palms Moist Orientation: 0-Oriented Tacttile Disturbances: 0-None Auditory Disturbances: 0-None Visual Disturbances: 0-None Headache: 0-None Present CIWA-Ar Total Score: 14 S COWS - Scale Resting Pulse: 0= [place] 80 or Below Sweatin= Chills/Flushing Restless Observation: 3= Extraneous Movement Pupil Size: 0= Normal to Room Light Bone or Joint Aches: 4=Acute Joint/Muscle Pain Runny Nose/ Eye Tearin= None GI Upset > 30mins: 0= None Tremor Observation of Outstretched Hands: 2= Slight Tremor Visible Yawning Observation: 1= 1-2x During Session Anxiety or Irritability: 2=Irritable/Anxious Goose Flesh Skin: 0=Smooth Skin COWS Score: 13 S Progress Note (SOAP) Subjective: PT C/O ANXIETY,IRRITABILITY,BACK PAIN/LEG PAIN, INTERMITTENT SLEEP. Objective: 08/19/17 14:20 Vital Signs 08/19/17 08/19/17 08/19/17 06:45 09:23 13:01 Temperature 97.4 F L 97.1 F L 98.4 F Pulse Rate 63 73 64 Respiratory 18 18 18 Rate Blood Pressure 104/68 117/76 117/69 Laboratory Last Values WBC 11.3 K/mm3 (4.0-10.0) H 08/19/17 06:30 RBC 4.41 M/mm3 (4.00-5.60) 08/19/17 06:30 Hgb 12.9 GM/dL (11.7-16.9) 08/19/17 06:30 Hct 39.2 % (35.4-49) 08/19/17 06:30 MCV 88.8 fl (80-96) 08/19/17 06:30 MCH 29.2 pg (25.7-33.7) 08/19/17 06:30 MCHC 32.9 g/dl (32.0-35.9) 08/19/17 06:30 RDW 13.9 % (11.9-15.9) 07/09/18 06:30 Plt Count 219 K/MM3 (134-434) 08/19/17 06:30 MPV 10.0 fl (7.5-11.1) 08/19/17 06:30 Sodium 143 mmol/L (136-145) 08/19/17 06:30 Potassium 4.0 mmol/L (3.5-5.1) 08/19/17 06:30 Chloride 106 mmol/L (98-107) 08/19/17 06:30 Carbon Dioxide 32 mmol/L (21-32) 08/19/17 06:30 Anion Gap 5 (8-16) L 08/19/17 06:30 BUN 11 mg/dL (7-18) 08/19/17 06:30 Creatinine 0.9 mg/dL (0.7-1.3) 08/19/17 06:30 Creat Clearance w eGFR > 60 (>60) 08/19/17 06:30 Random Glucose 82 mg/dL (74-106) 08/19/17 06:30 Calcium 8.2 mg/dL (8.5-10.1) L 08/19/17 06:30 Total Bilirubin 0.3 mg/dL (0.2-1.0) 08/19/17 06:30 AST 10 U/L (15-37) L D 08/19/17 06:30 ALT 19 U/L (12-78) 08/19/17 06:30 Alkaline Phosphatase 65 U/L (45-117) 08/19/17 06:30 Total Protein 6.2 g/dl (6.4-8.2) L 08/19/17 06:30 Albumin 3.2 g/dl (3.4-5.0) L 08/19/17 06:30 Urine Color Ltyellow 08/18/17 11:38 Urine Appearance Clear 08/18/17 11:38 Urine pH 6.0 (5.0-8.0) 08/18/17 11:38 Ur Specific [place] 1.011 (1.001-1.035) 08/18/17 11:38 Urine Protein Negative (NEGATIVE) 08/18/17 11:38 Urine Glucose (UA) Negative (NEGATIVE) 08/18/17 11:38 Urine Ketones Negative (NEGATIVE) 08/18/17 11:38 Urine Blood Negative (NEGATIVE) 08/18/17 11:38 Urine Nitrite Negative (NEGATIVE) 08/18/17 11:38 Urine Bilirubin Negative (<2.0 mg/dL) 08/18/17 11:38 Urine Urobilinogen Negative mg/dL (0.2-1.0) 08/18/17 11:38 Ur Leukocyte Esterase Negative (NEGATIVE) 08/18/17 11:38 HIV 1&2 Antibody Screen Negative 08/19/17 06:30 HIV P24 Antigen Negative 08/19/17 06:30 Assessment: 08/19/17 14:20 WITHDRAWAL SX Plan: CONTINUE DETOX/PRESENT PROTOCOL
--- NOTE | 2017-08-19 15:09 | EKG ---
Test Reason : Blood Pressure : / mmHG Vent. Rate : 071 BPM Atrial Rate : 071 BPM P-R Int : 158 ms QRS Dur : 084 ms QT Int : 404 ms P-R-T Axes : -02 083 037 degrees QTc Int : 439 ms NORMAL SINUS RHYTHM SEPTAL INFARCT , AGE UNDETERMINED ABNORMAL ECG WHEN COMPARED WITH ECG OF 13-JUL-2017 18:08, T WAVE VARIATION Confirmed by FELICITY ESCALONA MD ([id number]) on 08/19/2017 3:08:51 PM Referred By: Confirmed By:FELICITY ESCALONA MD
--- NOTE | 2017-08-19 16:15 | CONSULT ---
[facility] Psychiatric Consult - Data Date of interview: 08/19/17 Admission source: [facility] Identifying data: Readmission to [facility] for this 52 y/o male seeking detox treatment on for alcohol and heroin dependence.Patient is single,a father of four (two dependents are ),homeless,unemployed and supported on food stamps. Substance Abuse History: Confirmed by patient in this encounter.Smoking history : Current every day smoker. Have you smoked in the past 12 months: Yes. Aproximately how many cigarettes per day: 20. Cigars Per Day: 0. Hx Chewing Tobacco Use: No. Initiated information on smoking cessation: Yes. 'Breaking Loose' booklet given: 08/18/17. - Substance & Tx. History. Hx Alcohol Use: Yes. Hx Substance Use: Yes. Substance Use Type: Alcohol, Heroin, Marijuana. Hx Substance Use Treatment: Yes ([facility] 07/13/17to 07/18/17). - Substances Abused. Heroin. Route: Inhalation. Frequency: Daily. Amount used: 10 bags. Age of first use: 14. Date of Last Use: 08/16/17. Alcohol. Route: Oral. Frequency: 3-6 times per week. Amount used: 3 of 40 ozs of beer. Age of first use: 14. Date of Last Use: 08/16/17. Marijuana/Hashish. Route: Smoking. Frequency: 1-2 times per week. Amount used: 10$. Age of first use: 10. Date of Last Use: 08/14/17. street methadone. Route: Oral. Frequency : 1-3 times last 30 days. Amount used: 15 mgs. Age of first use: 28. Date of Last Use: 08/15/17 Medical History: Distant history of myocardial infarction and current treatment for hypertension and dyslipidemia. Psychiatric History: Patient presents with a history of multiple psychiatric hospitalizations ([facility]).Onset of psychiatric disturbances : age 17. Diagnosed with MDD.Mr Dobson reports psychiatric follow up for eight consecutive years at an OPD program, [facility], until he dropped out of treatment.NOT on psychotropic medications.Totally lost to follow up.No reported history of suicide attempts. Physical/Sexual Abuse/Trauma History: Traumatized by several personal losses ( of two dependents),chronic status of homelessness,lack of support and serious financial difficulties. Additional Comment: Urine Drug Screen Results: THC-Marijuana, MTD- Methadone.Noted. Mental Status Exam - Mental Status Exam Alert and Oriented to: Time, Place, Person Cognitive Function: Good Patient Appearance: Well Groomed Mood: Withdrawn, Hopeful Affect: Mood Congruent, Constricted Patient Behavior: Appropriate, Cooperative Speech Pattern: Clear, Appropriate Voice Loudness: Normal Thought Process: Intact, Goal Oriented Thought Disorder: Not Present Hallucinations: Denies Suicidal Ideation: Denies Homicidal Ideation: Denies Insight/Judgement: Poor Sleep: Well Appetite: Good Muscle strength/Tone: Normal Gait/Station: Normal Psychiatric Findings - Problem List ([place] 1, 2,3) (1) Opioid dependence with withdrawal Current Visit: Yes Status: Acute (2) Alcohol dependence with uncomplicated withdrawal Current Visit: Yes Status: Acute (3) Cannabis dependence Current Visit: Yes Status: Acute (4) Nicotine dependence Current Visit: Yes Status: Acute Qualifiers: Nicotine product type: cigarettes Substance use status: in withdrawal Qualified Code(s): F17.213 - Nicotine dependence, cigarettes, with withdrawal (5) Substance induced mood disorder Current Visit: Yes Status: Acute - Initial Treatment Plan Initial Treatment Plan: Psychoeducation.Sleep hygiene.Detoxification.Observation.
[2017-08-19] MEDS: THIAMINE HCL 100 MG TABLET (FP) PO SCH (22:10)
[2017-08-20] MEDS: diazePAM 5 MG TABLET PO SCH ×2 (10:31→22:30)
[2017-08-20] MEDS: PRENATAL VITAMINS W/ FOLIC ACID TABLET (FP) PO SCH (10:31)
[2017-08-20] MEDS: cloNIDine HCL 0.1 MG TABLET PO SCH ×2 (10:31→22:30)
[2017-08-20] MEDS: METHADONE HCL 5 MG TABLET (FOR DETOX USE ONLY) PO SCH (10:32)
[2017-08-20] MEDS: NICOTINE 21 MG/24 HOURS TOPICAL PATCH TD SCH (10:32)
--- NOTE | 2017-08-20 12:29 | PN ---
[facility] CIWA - CIWA Score Nausea/Vomitin-No Nausea/No Vomiting Muscle Tremors: 4-Moderate,w/Arms Extend Anxiety: 4-Mod. Anxious/Guarded Agitation: 5 Paroxysmal Sweats: 1-Minimal Palms Moist Orientation: 0-Oriented Tacttile Disturbances: 0-None Auditory Disturbances: 0-None Visual Disturbances: 0-None Headache: 0-None Present CIWA-Ar Total Score: 14 S COWS - Scale Resting Pulse: 0= [place] 80 or Below Sweatin= Chills/Flushing Restless Observation: 3= Extraneous Movement Pupil Size: 0= Normal to Room Light Bone or Joint Aches: 4=Acute Joint/Muscle Pain Runny Nose/ Eye Tearin= None GI Upset > 30mins: 0= None Tremor Observation of Outstretched Hands: 2= Slight Tremor Visible Yawning Observation: 0= None Anxiety or Irritability: 2=Irritable/Anxious Goose Flesh Skin: 0=Smooth Skin COWS Score: 12 S Progress Note (SOAP) Subjective: ANXIETY,IRRITABILITY,FATIGUE. Objective: 08/20/17 12:28 Vital Signs 08/20/17 08/20/17 06:13 09:22 Temperature 97.0 F L 97.7 F Pulse Rate 61 69 Respiratory 18 18 Rate Blood Pressure 116/72 114/73 Laboratory Tests 08/18/17 08/19/17 08/19/17 11:38 06:30 06:30 WBC 11.3 H RBC 4.41 Hgb 12.9 Hct 39.2 MCV 88.8 MCH 29.2 MCHC 32.9 RDW 13.9 Plt Count 219 MPV 10.0 Sodium 143 Potassium 4.0 Chloride 106 Carbon Dioxide 32 Anion Gap 5 L BUN 11 Creatinine 0.9 Creat Clearance w eGFR > 60 Random Glucose 82 Calcium 8.2 L Total Bilirubin 0.3 AST 10 L D ALT 19 Alkaline Phosphatase 65 Total Protein 6.2 L Albumin 3.2 L Urine Color Ltyellow Urine Appearance Clear Urine pH 6.0 Ur Specific [place] 1.011 Urine Protein Negative Urine Glucose (UA) Negative Urine Ketones Negative Urine Blood Negative Urine Nitrite Negative Urine Bilirubin Negative Urine Urobilinogen Negative Ur Leukocyte Esterase Negative HIV 1&2 Antibody Screen HIV P24 Antigen 08/19/17 06:30 WBC RBC Hgb Hct MCV MCH MCHC RDW Plt Count MPV Sodium Potassium Chloride Carbon Dioxide Anion Gap BUN Creatinine Creat Clearance w eGFR Random Glucose Calcium Total Bilirubin AST ALT Alkaline Phosphatase Total Protein Albumin Urine Color Urine Appearance Urine pH Ur Specific [place] Urine Protein Urine Glucose (UA) Urine Ketones Urine Blood Urine Nitrite Urine Bilirubin Urine Urobilinogen Ur Leukocyte Esterase HIV 1&2 Antibody Screen Negative HIV P24 Antigen Negative Assessment: 08/20/17 12:29 WITHDRAWAL SX Plan: CONTINUE DETOX
[2017-08-20] MEDS: THIAMINE HCL 100 MG TABLET (FP) PO SCH (22:30)
[2017-08-21] MEDS: PRENATAL VITAMINS W/ FOLIC ACID TABLET (FP) PO SCH (10:29)
[2017-08-21] MEDS: diazePAM 5 MG TABLET PO SCH ×2 (10:29→22:07)
[2017-08-21] MEDS: METHADONE HCL 5 MG TABLET (FOR DETOX USE ONLY) PO SCH (10:29)
[2017-08-21] MEDS: cloNIDine HCL 0.1 MG TABLET PO SCH ×2 (10:29→22:07)
[2017-08-21] MEDS: NICOTINE 21 MG/24 HOURS TOPICAL PATCH TD SCH (10:29)
[2017-08-21] MEDS ORDERED: METHADONE HCL 5 MG TABLET (FOR DETOX USE ONLY) ONE (10:31)
--- NOTE | 2017-08-21 10:53 | PN ---
[facility] Progress Note (SOAP) Subjective: ANXIETY,SWEATS,FATIGUE AND PT FOCUSING ON AFTERCARE NOW. Objective: 08/21/17 10:51 Vital Signs 08/21/17 08/21/17 08/21/17 03:30 06:16 09:21 Temperature 97.8 F 98.2 F Pulse Rate 47 L 64 Respiratory 18 16 18 Rate Blood Pressure 125/72 131/79 Laboratory Tests 08/18/17 08/19/17 08/19/17 11:38 06:30 06:30 WBC 11.3 H RBC 4.41 Hgb 12.9 Hct 39.2 MCV 88.8 MCH 29.2 MCHC 32.9 RDW 13.9 Plt Count 219 MPV 10.0 Sodium 143 Potassium 4.0 Chloride 106 Carbon Dioxide 32 Anion Gap 5 L BUN 11 Creatinine 0.9 Creat Clearance w eGFR > 60 Random Glucose 82 Calcium 8.2 L Total Bilirubin 0.3 AST 10 L D ALT 19 Alkaline Phosphatase 65 Total Protein 6.2 L Albumin 3.2 L Urine Color Ltyellow Urine Appearance Clear Urine pH 6.0 Ur Specific [place] 1.011 Urine Protein Negative Urine Glucose (UA) Negative Urine Ketones Negative Urine Blood Negative Urine Nitrite Negative Urine Bilirubin Negative Urine Urobilinogen Negative Ur Leukocyte Esterase Negative HIV 1&2 Antibody Screen HIV P24 Antigen 08/19/17 06:30 WBC RBC Hgb Hct MCV MCH MCHC RDW Plt Count MPV Sodium Potassium Chloride Carbon Dioxide Anion Gap BUN Creatinine Creat Clearance w eGFR Random Glucose Calcium Total Bilirubin AST ALT Alkaline Phosphatase Total Protein Albumin Urine Color Urine Appearance Urine pH Ur Specific [place] Urine Protein Urine Glucose (UA) Urine Ketones Urine Blood Urine Nitrite Urine Bilirubin Urine Urobilinogen Ur Leukocyte Esterase HIV 1&2 Antibody Screen Negative HIV P24 Antigen Negative Assessment: 08/21/17 10:52 WITHDRAWAL SX Plan: CONTINUE DETOX FOLLOW UP WITH COUNSELOR BRANNON HODGES TODAY TO DISCUSS AFTERCARE PLANS.
[2017-08-21] MEDS: THIAMINE HCL 100 MG TABLET (FP) PO SCH (22:07)
[2017-08-22] MEDS ORDERED: METHADONE HCL 10 MG TABLET (FOR DETOX USE ONLY) PO SCH (10:00)
[2017-08-22] MEDS ORDERED: diazePAM 5 MG TABLET PO SCH (10:00)
[2017-08-22] MEDS: PRENATAL VITAMINS W/ FOLIC ACID TABLET (FP) PO SCH (10:53)
[2017-08-22] MEDS: NICOTINE 21 MG/24 HOURS TOPICAL PATCH TD SCH (10:53)
[2017-08-22] MEDS: cloNIDine HCL 0.1 MG TABLET PO SCH ×2 (10:53→22:34)
--- NOTE | 2017-08-22 11:19 | PN ---
[facility] Progress Note (SOAP) Subjective: DECREASED ANXIETY, COLORING AT BEDSIDE. REPORTS DETOX PROCEEDING WELL. Objective: 08/22/17 11:18 Vital Signs 08/22/17 08/22/17 08/22/17 03:30 06:23 09:41 Temperature 96.1 F L 99.1 F Pulse Rate 51 L 72 Respiratory 18 18 18 Rate Blood Pressure 130/83 128/88 Laboratory Tests 08/18/17 08/19/17 08/19/17 11:38 06:30 06:30 WBC 11.3 H RBC 4.41 Hgb 12.9 Hct 39.2 MCV 88.8 MCH 29.2 MCHC 32.9 RDW 13.9 Plt Count 219 MPV 10.0 Sodium 143 Potassium 4.0 Chloride 106 Carbon Dioxide 32 Anion Gap 5 L BUN 11 Creatinine 0.9 Creat Clearance w eGFR > 60 Random Glucose 82 Calcium 8.2 L Total Bilirubin 0.3 AST 10 L D ALT 19 Alkaline Phosphatase 65 Total Protein 6.2 L Albumin 3.2 L Urine Color Ltyellow Urine Appearance Clear Urine pH 6.0 Ur Specific [place] 1.011 Urine Protein Negative Urine Glucose (UA) Negative Urine Ketones Negative Urine Blood Negative Urine Nitrite Negative Urine Bilirubin Negative Urine Urobilinogen Negative Ur Leukocyte Esterase Negative RPR Titer HIV 1&2 Antibody Screen HIV P24 Antigen 08/19/17 08/19/17 06:30 06:30 WBC RBC Hgb Hct MCV MCH MCHC RDW Plt Count MPV Sodium Potassium Chloride Carbon Dioxide Anion Gap BUN Creatinine Creat Clearance w eGFR Random Glucose Calcium Total Bilirubin AST ALT Alkaline Phosphatase Total Protein Albumin Urine Color Urine Appearance Urine pH Ur Specific [place] Urine Protein Urine Glucose (UA) Urine Ketones Urine Blood Urine Nitrite Urine Bilirubin Urine Urobilinogen Ur Leukocyte Esterase RPR Titer Nonreactive HIV 1&2 Antibody Screen Negative HIV P24 Antigen Negative Assessment: 08/22/17 11:19 WITHDRAWAL SX Plan: CONTINUE DETOX
[2017-08-22] MEDS: THIAMINE HCL 100 MG TABLET (FP) PO SCH (22:34)
[2017-08-23] MEDS ORDERED: METHADONE HCL 5 MG TABLET (FOR DETOX USE ONLY) PO SCH (06:00)
[2017-08-23 06:33] VITALS: BP 142/89; PULSE 47; TEMP 97.1
[2017-08-23] MEDS: PRENATAL VITAMINS W/ FOLIC ACID TABLET (FP) PO SCH (10:35)
[2017-08-23] MEDS: cloNIDine HCL 0.1 MG TABLET PO SCH (10:35)
[2017-08-23] MEDS: NICOTINE 21 MG/24 HOURS TOPICAL PATCH TD SCH (10:35)
--- NOTE | 2017-08-23 18:29 | PN ---
B[facility] Progress Note (SOAP) Subjective: DETOX COMPLETED. ALERT O X 3. NAD. PT REFERRED TO REHAB TODAY. Objective: 08/23/17 18:28 Vital Signs - 24 hr 08/22/17 08/23/17 08/23/17 22:00 00:30 03:30 Temperature 98.0 F Pulse Rate 50 L Respiratory 18 18 18 Rate Blood Pressure 153/81 08/23/17 06:33 Temperature 97.1 F L Pulse Rate 47 L Respiratory 18 Rate Blood Pressure 142/89 Laboratory Tests 08/18/17 08/19/17 08/19/17 11:38 06:30 06:30 WBC 11.3 H RBC 4.41 Hgb 12.9 Hct 39.2 MCV 88.8 MCH 29.2 MCHC 32.9 RDW 13.9 Plt Count 219 MPV 10.0 Sodium 143 Potassium 4.0 Chloride 106 Carbon Dioxide 32 Anion Gap 5 L BUN 11 Creatinine 0.9 Creat Clearance w eGFR > 60 Random Glucose 82 Calcium 8.2 L Total Bilirubin 0.3 AST 10 L D ALT 19 Alkaline Phosphatase 65 Total Protein 6.2 L Albumin 3.2 L Urine Color Ltyellow Urine Appearance Clear Urine pH 6.0 Ur Specific [place] 1.011 Urine Protein Negative Urine Glucose (UA) Negative Urine Ketones Negative Urine Blood Negative Urine Nitrite Negative Urine Bilirubin Negative Urine Urobilinogen Negative Ur Leukocyte Esterase Negative RPR Titer HIV 1&2 Antibody Screen HIV P24 Antigen 08/19/17 08/19/17 06:30 06:30 WBC RBC Hgb Hct MCV MCH MCHC RDW Plt Count MPV Sodium Potassium Chloride Carbon Dioxide Anion Gap BUN Creatinine Creat Clearance w eGFR Random Glucose Calcium Total Bilirubin AST ALT Alkaline Phosphatase Total Protein Albumin Urine Color Urine Appearance Urine pH Ur Specific [place] Urine Protein Urine Glucose (UA) Urine Ketones Urine Blood Urine Nitrite Urine Bilirubin Urine Urobilinogen Ur Leukocyte Esterase RPR Titer Nonreactive HIV 1&2 Antibody Screen Negative HIV P24 Antigen Negative Assessment: 08/23/17 18:28 MEDICALLY STABLE Plan: D/C PT TODAY
--- NOTE | 2017-08-23 18:31 | DS ---
[facility] Detox Discharge Summary Admission Date: 08/18/17 Discharge Date: 08/23/17 - History Present History: Alcohol Dependence, Opioid Dependence Additional Comments: DETOX COMPLETED. ALERT O X 3. NAD. Pertinent Past History: PLEASE SEE DX BELOW - Physical Exam Results Vital Signs: Vital Signs Temperature 97.1 F L 08/23/17 06:33 Pulse Rate 47 L 08/23/17 06:33 Respiratory Rate 18 08/23/17 06:33 Blood Pressure 142/89 08/23/17 06:33 O2 Sat by Pulse Oximetry (%) Pertinent Admission Physical Exam Findings: WITHDRAWAL SX Laboratory Tests 08/18/17 08/19/17 08/19/17 11:38 06:30 06:30 WBC 11.3 H RBC 4.41 Hgb 12.9 Hct 39.2 MCV 88.8 MCH 29.2 MCHC 32.9 RDW 13.9 Plt Count 219 MPV 10.0 Sodium 143 Potassium 4.0 Chloride 106 Carbon Dioxide 32 Anion Gap 5 L BUN 11 Creatinine 0.9 Creat Clearance w eGFR > 60 Random Glucose 82 Calcium 8.2 L Total Bilirubin 0.3 AST 10 L D ALT 19 Alkaline Phosphatase 65 Total Protein 6.2 L Albumin 3.2 L Urine Color Ltyellow Urine Appearance Clear Urine pH 6.0 Ur Specific [place] 1.011 Urine Protein Negative Urine Glucose (UA) Negative Urine Ketones Negative Urine Blood Negative Urine Nitrite Negative Urine Bilirubin Negative Urine Urobilinogen Negative Ur Leukocyte Esterase Negative RPR Titer HIV 1&2 Antibody Screen HIV P24 Antigen 08/19/17 08/19/17 06:30 06:30 WBC RBC Hgb Hct MCV MCH MCHC RDW Plt Count MPV Sodium Potassium Chloride Carbon Dioxide Anion Gap BUN Creatinine Creat Clearance w eGFR Random Glucose Calcium Total Bilirubin AST ALT Alkaline Phosphatase Total Protein Albumin Urine Color Urine Appearance Urine pH Ur Specific [place] Urine Protein Urine Glucose (UA) Urine Ketones Urine Blood Urine Nitrite Urine Bilirubin Urine Urobilinogen Ur Leukocyte Esterase RPR Titer Nonreactive HIV 1&2 Antibody Screen Negative HIV P24 Antigen Negative - Treatment Hospital Course: Detox Protocol Followed, Detoxed Safely, Responded well, Discharged Condition Good, Rehab Referral Accepted Patient has Accepted a Rehab Referral to: [facility] Discharge Medications: Ambulatory Orders Amlodipine Besylate [Norvasc -] 5 mg PO DAILY #30 tablet 07/18/17 Atorvastatin Calcium [Lipitor] 20 mg PO DAILY 08/18/17 - Diagnosis (1) Alcohol dependence with uncomplicated withdrawal Status: Acute (2) Opioid dependence with withdrawal Status: Acute (3) History of hypercholesterolemia Status: Suspected (4) History of ME (myocardial infarction) Status: Resolved (5) Nicotine dependence Status: Acute Qualifiers: Nicotine product type: cigarettes Substance use status: in withdrawal Qualified Code(s): F17.213 - Nicotine dependence, cigarettes, with withdrawal - AMA Did Patient Leave Against Medical Advice: No
--- NOTE | 2017-08-26 13:44 | PN ---
[facility] Progress Note Note: PATIENT PRESENTS WITH C/O INSOMNIA, HEADACHE, ANXIETY AND OPIOD CRAVINGS. HAS HX OF HEROIN DEPENDENCE AND TREATED WITH SUBOXONE IN PAST. LAST TREATMENT WITH SUBOXONE BY DR. SALOME MAURER IN 06/08/17 8MG/4MG DAILY #30. PT NON-COMPLIANT WITH PROGRAM AFTER OF SON. PATIENT STATES HE IS HOMELESS. TO SPEAK WITH COUNSELOR REGARDING REFERRING TO OUTPATIENT SUBOXONE PROGRAM IF PATIENT TO RESTART TREATMENT WHILE IN REHAB. PT TO FOLLOW UP WITH PROVIDER ONCE HE SPEAKS WITH COUNSELOR.
== END 2017-08-23 11:52 | disposition other institution (70) | DRG 773 ==
LOC: YASAS 08:36 → Y3N 10:24
PROVIDERS: ADMIT Surgery; ATTEND Surgery
PROC: HZ2ZZZZ Detoxification Services for Substance Abuse Treatment (ICD-10-PCS; principal; 2017-08-18)
DX: F11.23 Opioid dependence with withdrawal (principal); F10.230 Alcohol dependence with withdrawal, uncomplicated; F12.20 Cannabis dependence, uncomplicated; F17.213 Nicotine dependence, cigarettes, with withdrawal; F19.24 Other psychoactive substance dependence with psychoactive substance-induced mood disorder; F41.8 Other specified anxiety disorders; I25.2 Old myocardial infarction; I10 Essential (primary) hypertension; E78.00 Pure hypercholesterolemia, unspecified; Z91.018 Allergy to other foods; Z59.0 Homelessness
CPT/HCPCS: 36415; 80053; 81003; 85027; 86593; 87389; 93005; 93010; J0735

== ENCOUNTER 2017-12-07 18:20 | Inpatient (IN) | payer OTHER ==
[2017-12-07 18:57] VITALS: BMI 20.3
--- NOTE | 2017-12-07 19:50 | HP ---
COWS - Scale Resting Pulse: 0= [place] 80 or Below Sweatin=Flushed/Facial Moisture Restless Observation: 1= Difficult to Sit Still Pupil Size: 1= Pupils >than Normal Bone or Joint Aches: 2= Severe Diffuse Aches Runny Nose/ Eye Tearin= Runny Nose/Eyes GI Upset > 30mins: 2= Nausea/Diarrhea Tremor Observation: 2= Slight Tremor Visible Yawning Observation: 1= 1-2x During Session Anxiety or Irritability: 1=Feels Anxious/Irritable Goose Flesh Skin: 0=Smooth Skin COWS Score: 14 Admission ROS BHS - HPI Chief Complaint: DEPENDENT ON HEROIN AND MARIJUANA Allergies/Adverse Reactions: Allergies Allergy/AdvReac Type Severity Reaction Status Date / Time shellfish derived Allergy Severe Swelling Verified 08/18/17 11:05 tomato Allergy Severe Swelling Verified 08/18/17 11:05 Fish Containing Products Allergy Mild Rash Verified 08/18/17 11:05 No Known Drug Allergies Allergy Verified 08/18/17 11:05 cheese AdvReac Intermediate Swelling Verified 08/18/17 11:05 History of Present Illness: THE PT. IS REQUESTING ADMISSION TO THE DETOX UNIT AND CAME FOR H AND PE Exam Limitations: No Limitations - Ebola screening Have you traveled outside of the country in the last 21 days: No (N) Have you had contact with anyone from an Ebola affected area: No Have you been sick,other than usual withdrawal symptoms: No Do you have a fever: No - Review of Systems Constitutional: See HPI, Loss of Appetite, Malaise, Weakness, Unexplained wgt Loss EENT: reports: See HPI Respiratory: reports: See HPI Cardiac: reports: See HPI GI: reports: See HPI, Nausea, Poor Appetite, Poor Fluid Intake, Vomiting, Abdominal cramping : reports: No Symptoms Reported, See HPI Musculoskeletal: reports: See HPI, Muscle Pain, Muscle Weakness Integumentary: reports: See HPI, Sweating Neuro: reports: See HPI, Headache, Tremors, Weakness Endocrine: reports: See HPI Hematology: reports: See HPI Psychiatric: reports: Judgement Intact, Anxious, Depressed Other Systems: Reviewed and Negative Patient History - Patient Medical History Hx Anemia: No Hx Asthma: No Hx Chronic Obstructive Pulmonary Disease (COPD): No Hx Cancer: No Hx Cardiac Disorders: Yes (old HI at age 39) Hx Congestive Heart Failure: No Hx Hypertension: Yes Hx Hypercholesterolemia: Yes (non adherent) Hx Pacemaker: No HX Cerebrovascular Accident: No Hx Seizures: Yes (drug r/t seizure last attack 2 months ago) Hx Dementia: No Hx Diabetes: No Hx Gastrointestinal Disorders: No Hx Liver Disease: No Hx Genitourinary Disorders: No Hx Sexually Transmitted Disorders: No Hx Renal Disease (ESRD): No Hx Thyroid Disease: No Hx Human Immunodeficiency Virus (HIV): No (Last Tested: 08/15/17 NEGATIVE) Hx Hepatitis C: No Hx Depression: Yes (AND ANXIETY) Hx Suicide Attempt: No Hx Bipolar Disorder: No Hx Schizophrenia: No - Patient Surgical History Past Surgical History: No Hx Neurologic Surgery: No Hx Cataract Extraction: No Hx Cardiac Surgery: No Hx Lung Surgery: No Hx Breast Surgery: No Hx Breast Biopsy: No Hx Abdominal Surgery: No Hx Appendectomy: No Hx Cholecystectomy: No Hx Genitourinary Surgery: No Hx Section: No Hx Orthopedic Surgery: No Anesthesia Reaction: No - PPD History Previous Implant?: Yes Documented Results: Negative w/proof Date: 03/01/17 Results: 0 mm - Smoking Cessation Smoking history: Current every day smoker Have you smoked in the past 12 months: Yes Aproximately how many cigarettes per day: 20 Cigars Per Day: 0 Hx Chewing Tobacco Use: No Initiated information on smoking cessation: Yes 'Breaking Loose' booklet given: 12/07/17 - Substance & Tx. History Hx Alcohol Use: No Hx Substance Use: Yes Substance Use Type: Heroin, Marijuana - Substances Abused Heroin Route: Inhalation Frequency: Daily Amount used: 10 bags Age of first use: 12 Date of Last Use: 12/06/17 Marijuana/Hashish Route: Smoking Frequency: Daily Amount used: 1 bag Age of first use: 14 Date of Last Use: 12/07/17 Family Disease History - Family Disease History Family Disease History: Heart Disease: Father (HI,), Mother (ETOH DEPENDENT AND ,HI), Brother (HI; Bipolar Disorder.), Sister (HI), Other: Mother, Brother, Son (2 sons - one in MVA, one son with Downs), Daughter (one daughter murdered (thrown out window)) Admission Physical Exam BHS - Vital Signs Vital Signs: Vital Signs - 24 hr 12/07/17 18:54 Temperature 98.9 F Pulse Rate 58 L Respiratory 18 Rate Blood Pressure 135/78 - Physical General Appearance: Yes: No Apparent Distress, Appropriately Dressed, Alcohol on Breath, Sweating, Anxious HEENTM: Yes: Hearing grossly Normal, Normocephalic, Normal Voice, ALEXIS, Pharynx Normal Respiratory: Yes: Chest Non-Tender, Lungs Clear, Normal Breath Sounds, No Respiratory Distress, No Accessory Muscle Use Neck: Yes: No masses,lesions,Nodules, Supple, Trachea in good position Breast: Yes: Breast Exam Deferred, Axillae without masses Cardiology: Yes: Regular Rhythm, S1, S2, Bradycardia Abdominal: Yes: Normal Bowel Sounds, Non Tender, Flat, Soft Back: Yes: Normal Inspection Musculoskeletal: Yes: full range of Motion, Gait Steady, Pelvis Stable, Muscle Pain, Muscle weakness Extremities: Yes: Normal Capillary Refill, Normal Range of Motion, Non-Tender, Tremors 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 intact, Fully Oriented, Alert, Motor Strength 5/5, Normal Response, Depressed Affect Integumentary: Yes: Normal Color, Warm, Moist Lymphatic: Yes: Within Normal Limits - Diagnostic (1) Cannabis dependence Current Visit: Yes Status: Chronic (2) Nicotine dependence Current Visit: Yes Status: Chronic Qualifiers: Nicotine product type: cigarettes Substance use status: uncomplicated Qualified Code(s): F17.210 - Nicotine dependence, cigarettes, uncomplicated (3) Opioid dependence Current Visit: Yes Status: Chronic (4) Anxiety and depression Current Visit: Yes Status: Chronic (5) Hypercholesterolemia Current Visit: Yes Status: Chronic (6) Hypertension Current Visit: Yes Status: Chronic Qualifiers: Hypertension type: essential hypertension Qualified Code(s): I10 - Essential (primary) hypertension Cleared for Admission [facility] - Detox or Rehab [facility] Level of Care: Medically Supervised Detox Regimen/Protocol: Methadone [facility] Breath Alcohol Content Breath Alcohol Content: 0.002 Urine Drug Screen - Results Drug Screen Negative: No Urine Drug Screen Results: THC-Marijuana, OPI-Opiates, OXY-Oxycodone, FEN- Fentanyl
[2017-12-07] MEDS ORDERED: guaiFENesin/D-METHORPHAN HB 10 ML UNIT-DOSE CUPS PO PRN (19:56)
[2017-12-07] MEDS ORDERED: IBUPROFEN 400 MG TABLET (FP) PO PRN (19:56)
[2017-12-07] MEDS ORDERED: MAG HYDROX/AL HYDROX/SIMETH 30 ML UNIT-DOSE CUP PO PRN (19:56)
[2017-12-07] MEDS ORDERED: MENTHOL/PHENOL 1 EACH UD MM PRN (19:56)
[2017-12-07] MEDS ORDERED: LOPERAMIDE HCL 2 MG CAPSULE PO PRN (19:56)
[2017-12-07] MEDS ORDERED: MAGNESIUM CITRATE 300 ML BOTTLE PO PRN (19:56)
[2017-12-07] MEDS ORDERED: NICOTINE POLACRILEX 4 MG GUM BC PRN (19:56)
[2017-12-07] MEDS ORDERED: P-EPHED 60MG/TRIPROLIDI 2.5MG TABLET PO PRN (19:56)
[2017-12-07] MEDS ORDERED: ACETAMINOPHEN 325 MG TABLET (FP) PO PRN (19:56)
[2017-12-07] MEDS ORDERED: hydrOXYzine PAMOATE 25 MG CAPSULE (FP) PO PRN (19:56)
[2017-12-07] MEDS ORDERED: MAGNESIUM HYDROX 2400MG/30ML ORAL SUSPENSION 30 ML CUP PO PRN (19:56)
[2017-12-07] MEDS ORDERED: METHADONE HCL 10 MG TABLET (FOR DETOX USE ONLY) PO ONE ×2 (20:15→23:00)
[2017-12-07] MEDS: diazePAM 5 MG TABLET PO PRN (21:18)
[2017-12-07] MEDS ORDERED: ATORVASTATIN CA 20 MG TABLET (FP) PO SCH (22:00)
[2017-12-07] MEDS ORDERED: MELATONIN 5 MG TABLETS PO PRN (22:00)
[2017-12-07] MEDS ORDERED: THIAMINE HCL 100 MG TABLET (FP) PO SCH (22:00)
[2017-12-08] MEDS ORDERED: NICOTINE 21 MG/24 HOURS TOPICAL PATCH TD SCH (10:00)
[2017-12-08] MEDS ORDERED: METHADONE HCL 10 MG TABLET (FOR DETOX USE ONLY) PO ONE (10:00)
[2017-12-08] MEDS ORDERED: PRENATAL VITAMINS W/ FOLIC ACID TABLET (FP) PO SCH (10:00)
[2017-12-08] MEDS ORDERED: amLODIPine BESYLATE 5 MG TABLET (FP) PO SCH (10:00)
[2017-12-08] MEDS: diazePAM 5 MG TABLET PO PRN (10:29)
[2017-12-08 10:33] LABS: URINE APPEARANCE CLEAR; URINE BILIRUBIN NEGATIVE (<2.0 mg/dL); URINE COLOR YELLOW; URINE GLUCOSE (UA) NEGATIVE (NEGATIVE); URINE KETONE NEGATIVE (NEGATIVE); URINE LEUK ESTERASE NEGATIVE (NEGATIVE); URINE NITRITE NEGATIVE (NEGATIVE); URINE PROTEIN NEGATIVE (NEGATIVE)
[2017-12-08 10:35] LABS: HEMATOCRIT 40.7 % (35.4-49); HEMOGLOBIN 12.9 GM/dL (11.7-16.9); MCH 28.8 pg (25.7-33.7); MCHC 31.7 g/dl (32.0-35.9); MEAN CELL VOLUME 90.9 fl (80-96); PLATELET COUNT 214 K/MM3 (134-434); RBC 4.48 M/mm3 (4.00-5.60); RDW 13.1 % (11.9-15.9); WHITE BLOOD COUNT 6.3 K/mm3 (4.0-10.0)
[2017-12-08 10:41] LABS: ALK PHOS 71 U/L (45-117); ANION GAP 8 MMOL/L (8-16); BILIRUBIN,TOTAL 0.2 mg/dL (0.2-1); BLOOD UREA NITROGEN 11 mg/dL (7-18); CALCIUM 8.2 mg/dL (8.5-10.1); CHLORIDE 111 mmol/L (98-107); CO2 27 mmol/L (21-32); CREATININE 0.6 mg/dL (0.55-1.3); GLUCOSE,RANDOM 85 mg/dL (74-106); SGOT/AST 5 U/L (15-37); SGPT/ALT 14 U/L (13-61); SODIUM 147 mmol/L (136-145); TOT PROT 5.9 g/dl (6.4-8.2)
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
--- NOTE | 2017-12-08 12:55 | PN ---
S COWS - Scale Resting Pulse: 0= [place] 80 or Below Sweatin= Chills/Flushing Restless Observation: 1= Difficult to Sit Still Pupil Size: 1= Pupils >than Normal Bone or Joint Aches: 2= Severe Diffuse Aches Runny Nose/ Eye Tearin= Nasal Congestion GI Upset > 30mins: 1= Stomach Cramp Tremor Observation of Outstretched Hands: 1= Tremor [place], Not Seen Yawning Observation: 2= >3x During Session Anxiety or Irritability: 2=Irritable/Anxious Goose Flesh Skin: 0=Smooth Skin COWS Score: 12 S Progress Note (SOAP) Subjective: muscle cramp joints pain body aches anxiety tremor sweat Objective: 12/08/17 12:56 Vital Signs Temperature 98.2 F 12/08/17 09:49 Pulse Rate 53 L 12/08/17 09:49 Respiratory Rate 16 12/08/17 09:49 Blood Pressure 141/76 12/08/17 09:49 O2 Sat by Pulse Oximetry (%) Laboratory Last Values WBC 6.3 K/mm3 (4.0-10.0) 12/08/17 07:35 RBC 4.48 M/mm3 (4.00-5.60) 12/08/17 07:35 Hgb 12.9 GM/dL (11.7-16.9) 12/08/17 07:35 Hct 40.7 % (35.4-49) 12/08/17 07:35 MCV 90.9 fl (80-96) 12/08/17 07:35 MCH 28.8 pg (25.7-33.7) 12/08/17 07:35 MCHC 31.7 g/dl (32.0-35.9) L 12/08/17 07:35 RDW 13.1 % (11.9-15.9) 12/08/17 07:35 Plt Count 214 K/MM3 (134-434) 12/08/17 07:35 MPV 10.0 fl (7.5-11.1) 12/08/17 07:35 Sodium 147 mmol/L (136-145) H 12/08/17 07:35 Potassium 4.0 mmol/L (3.5-5.1) 12/08/17 07:35 Chloride 111 mmol/L (98-107) H 12/08/17 07:35 Carbon Dioxide 27 mmol/L (21-32) 12/08/17 07:35 Anion Gap 8 MMOL/L (8-16) 12/08/17 07:35 BUN 11 mg/dL (7-18) 12/08/17 07:35 Creatinine 0.6 mg/dL (0.55-1.3) 12/08/17 07:35 Creat Clearance w eGFR > 60 (>60) 12/08/17 07:35 Random Glucose 85 mg/dL (74-106) 12/08/17 07:35 Calcium 8.2 mg/dL (8.5-10.1) L 12/08/17 07:35 Total Bilirubin 0.2 mg/dL (0.2-1) 12/08/17 07:35 AST 5 U/L (15-37) L 12/08/17 07:35 ALT 14 U/L (13-61) 12/08/17 07:35 Alkaline Phosphatase 71 U/L (45-117) 12/08/17 07:35 Total Protein 5.9 g/dl (6.4-8.2) L 12/08/17 07:35 Albumin 3.0 g/dl (3.4-5.0) L 12/08/17 07:35 Urine Color Yellow 12/08/17 08:30 Urine Appearance Clear 12/08/17 08:30 Urine pH 6.0 (5.0-8.0) 12/08/17 08:30 Ur Specific [place] 1.027 (1.010-1.035) 12/08/17 08:30 Urine Protein Negative (NEGATIVE) 12/08/17 08:30 Urine Glucose (UA) Negative (NEGATIVE) 12/08/17 08:30 Urine Ketones Negative (NEGATIVE) 12/08/17 08:30 Urine Blood Negative (NEGATIVE) 12/08/17 08:30 Urine Nitrite Negative (NEGATIVE) 12/08/17 08:30 Urine Bilirubin Negative (<2.0 mg/dL) 12/08/17 08:30 Urine Urobilinogen 2.0 mg/dL (0.2-1.0) 12/08/17 08:30 Ur Leukocyte Esterase Negative (NEGATIVE) 12/08/17 08:30 RPR Titer Nonreactive (NONREACTIVE) 12/08/17 07:35 HIV 1&2 Antibody Screen Negative 12/08/17 07:35 HIV P24 Antigen Negative 12/08/17 07:35 lab noted calcium rich food Assessment: 12/08/17 12:57 withdrawal sx Plan: continue detox
--- NOTE | 2017-12-08 13:49 | EKG ---
Test Reason : Blood Pressure : / mmHG Vent. Rate : 065 BPM Atrial Rate : 065 BPM P-R Int : 122 ms QRS Dur : 084 ms QT Int : 408 ms P-R-T Axes : -16 083 047 degrees QTc Int : 424 ms NORMAL SINUS RHYTHM NORMAL ECG WHEN COMPARED WITH ECG OF 18-AUG-2017 11:37, CRITERIA FOR SEPTAL INFARCT ARE NO LONGER PRESENT Confirmed by MD Karla, Sami ([id number]) on 12/08/2017 1:49:12 PM Referred By: Confirmed By:Sami Acosta MD
[2017-12-09] MEDS ORDERED: METHADONE HCL 5 MG TABLET (FOR DETOX USE ONLY) PO ONE (10:00)
[2017-12-09 10:24] VITALS: BP 135/87; PULSE 67; TEMP 96.8
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
[2017-12-10] MEDS ORDERED: METHADONE HCL 5 MG TABLET (FOR DETOX USE ONLY) PO ONE (10:00)
[2017-12-11] MEDS ORDERED: METHADONE HCL 10 MG TABLET (FOR DETOX USE ONLY) PO ONE (10:00)
[2017-12-12] MEDS ORDERED: METHADONE HCL 5 MG TABLET (FOR DETOX USE ONLY) PO ONE (06:00)
== END 2017-12-09 11:00 | disposition left against medical advice (07) | DRG 770 ==
LOC: YASAS 18:20 → Y6N 19:03
PROC: HZ2ZZZZ Detoxification Services for Substance Abuse Treatment (ICD-10-PCS; principal; 2017-12-09)
DX: F11.23 Opioid dependence with withdrawal (principal); F10.20 Alcohol dependence, uncomplicated; F12.20 Cannabis dependence, uncomplicated; F17.210 Nicotine dependence, cigarettes, uncomplicated; F41.8 Other specified anxiety disorders; F39 Unspecified mood [affective] disorder; I10 Essential (primary) hypertension; E78.00 Pure hypercholesterolemia, unspecified; R00.1 Bradycardia, unspecified; I25.2 Old myocardial infarction; Z91.14 Patient's other noncompliance with medication regimen; Z91.013 Allergy to seafood; Z91.011 Allergy to milk products; Z86.69 Personal history of other diseases of the nervous system and sense organs; Z87.898 Personal history of other specified conditions; Z59.0 Homelessness
CPT/HCPCS: 36415; 80053; 81003; 85027; 86593; 87389; 93005; 93010

== ENCOUNTER 2018-12-02 10:29 | Inpatient (IN) | payer OTHER ==
[2018-12-02 11:11] VITALS: BMI 22.4
--- NOTE | 2018-12-02 12:39 | HP ---
COWS - Scale Resting Pulse: 0= [place] 80 or Below Sweatin= Chills/Flushing Restless Observation: 1= Difficult to Sit Still Pupil Size: 0= Normal to Room Light Bone or Joint Aches: 2= Severe Diffuse Aches Runny Nose/ Eye Tearin= Nasal Congestion GI Upset > 30mins: 3= Vomiting/Diarrhea Tremor Observation: 2= Slight Tremor Visible Yawning Observation: 0= None Anxiety or Irritability: 2=Irritable/Anxious Goose Flesh Skin: 0=Smooth Skin COWS Score: 12 CIWA Score Nausea/Vomitin Muscle Tremors: 2 Anxiety: 2 Agitation: 0-Normal Activity Paroxysmal Sweats: 1-Minimal Palms Moist Orientation: 0-Oriented Tacttile Disturbances: 0-None Auditory Disturbances: 0-None Visual Disturbances: 0-None Headache: 1-Very Mild CIWA-Ar Total Score: 9 - Admission Criteria OASAS Guidelines: Admission for Medically Managed Detox: Requires at least one of the followin. CIWA greater than 12 2. Seizures within the past 24 hours 3. Delirium tremens within the past 24 hours 4. Hallucinations within the past 24 hours 5. Acute intervention needed for co occurring medical disorder 6. Acute intervention needed for co occurring psychiatric disorder 7. Severe withdrawal that cannot be handled at a lower level of care (continued vomiting, continued diarrhea, abnormal vital signs) requiring intravenous medication and/or fluids 8. Admitting History and Physical - Smoking History Smoking history: Current every day smoker Have you smoked in the past 12 months: Yes Aproximately how many cigarettes per day: 20 - Alcohol/Substance Use Hx Alcohol Use: No Admission ROS [facility] - HPI Chief Complaint: "detox, get medicated, move on" Allergies/Adverse Reactions: Allergies Allergy/AdvReac Type Severity Reaction Status Date / Time shellfish derived Allergy Severe Swelling Verified 12/02/18 10:59 tomato Allergy Severe Swelling Verified 08/18/17 11:05 Fish Containing Products Allergy Mild Rash Verified 12/02/18 10:59 No Known Drug Allergies Allergy Verified 08/18/17 11:05 cheese AdvReac Intermediate Swelling Verified 12/02/18 10:59 History of Present Illness: 53 year old male with a history hypertension, hypercholesterolemia, hx of [place], alcohol and heroin dependence here for detox. Previously here 1 year ago for detox, did not stay for rehab. Would like to stay for rehab on this admission. Formerly in methadone/suboxone program. Heroin: 7-10 bags per day, last used yesterday, sniffs, never injected. Has OD'd , last 5 months ago (7 total). Never had withdrawal seizures. Withdrawals include tremors, sweats, n/v. Longest period of sobriety 15 years starting 1992. Started at age 12. Alcohol: drinks 2x per week; 4-5 40s, no liquor; no withdrawal symptoms. Never had seizure from stopping alcohol. Cocaine: 1x per month, last used yesterday; 0.5-1gram of cocaine when he does use Suboxone: last took 3 days, 2 4ths; 1-2x per month [place]: smoke 2-3 blunts/day Cigarettes: 10-20cigs/day since 12 years old Living Situation: lives in [facility]dc (4-5 months), [place] [address] Work: unemployed, [employer] Family: Mother/father (heart problems); brother had heart attack, has 6 children; does not keep in contact with any of them Surgeries: Never had surgeries before Allergies: NKDA, allergic to yellow cheese, fish (severe anaphylaxis) - Ebola screening Have you traveled outside of the country in the last 21 days: No Have you had contact with anyone from an Ebola affected area: No Do you have a fever: No - Review of Systems Constitutional: Chills, Diaphoresis, Loss of Appetite EENT: reports: Nose Congestion Respiratory: reports: No Symptoms reported Cardiac: reports: Lightheadedness GI: reports: Diarrhea, Nausea, Vomiting : reports: No Symptoms Reported Musculoskeletal: reports: Back Pain Integumentary: reports: Rash (Neck) Neuro: reports: Headache, Tremors Endocrine: reports: No Symptoms Reported Hematology: reports: No Symptoms Reported Psychiatric: reports: Judgement Intact, Mood/Affect Appropiate, Orientated x3, Anxious Patient History - Patient Medical History Hx Anemia: No Hx Asthma: No Hx Chronic Obstructive Pulmonary Disease (COPD): No Hx Cancer: No Hx Cardiac Disorders: Yes (old [place] at age 39) Hx Congestive Heart Failure: No Hx Hypertension: Yes Hx Hypercholesterolemia: Yes (non adherent) Hx Pacemaker: No HX Cerebrovascular Accident: No Hx Seizures: Yes (drug r/t seizure last attack 2 months ago) Hx Dementia: No Hx Diabetes: No Hx Gastrointestinal Disorders: No Hx Liver Disease: No Hx Genitourinary Disorders: No Hx Sexually Transmitted Disorders: No Hx Renal Disease (ESRD): No Hx Thyroid Disease: No Hx Human Immunodeficiency Virus (HIV): No (Last Tested: 08/15/17 NEGATIVE) Hx Hepatitis C: No Hx Depression: Yes (AND ANXIETY) Hx Suicide Attempt: No Hx Bipolar Disorder: No Hx Schizophrenia: No - Patient Surgical History Past Surgical History: No Hx Neurologic Surgery: No Hx Cataract Extraction: No Hx Cardiac Surgery: No Hx Lung Surgery: No Hx Breast Surgery: No Hx Breast Biopsy: No Hx Abdominal Surgery: No Hx Appendectomy: No Hx Cholecystectomy: No Hx Genitourinary Surgery: No Hx Section: No Hx Orthopedic Surgery: No Anesthesia Reaction: No - PPD History Date: 12/09/17 Results: 0 mm - Smoking Cessation Smoking history: Current every day smoker Have you smoked in the past 12 months: Yes Aproximately how many cigarettes per day: 20 Cigars Per Day: 0 Hx Chewing Tobacco Use: No Initiated information on smoking cessation: Yes 'Breaking Loose' booklet given: 12/02/18 - Substances abused Heroin Substance route: Inhalation Frequency: Daily Amount used: 8-12 bags Age of first use: 12 Date of last use: 12/01/18 Cocaine Substance route: Inhalation Frequency: 1-2 times per week Amount used: half a gram Age of first use: 12 Date of last use: 12/01/18 Alcohol Substance route: Oral Frequency: 1-2 times per week Amount used: (4-5) 40 oz bottles Age of first use: 12 Date of last use: 12/01/18 Marijuana/Hashish Substance route: Smoking Frequency: 3-6 times per week Amount used: 1-2 dime bags Age of first use: 14 Date of last use: 12/01/18 Admission Physical Exam BHS - Vital Signs Vital Signs: Vital Signs - 24 hr 12/02/18 11:02 Temperature 98.3 F Pulse Rate 67 Respiratory 18 Rate Blood Pressure 146/77 - Physical General Appearance: Yes: Within Normal Limits, No Apparent Distress, Nourished HEENTM: Yes: Hearing grossly Normal, Normal ENT Inspection Respiratory: Yes: Lungs Clear Neck: Yes: Other (Superficial rash on neck) Cardiology: Yes: Regular Rhythm, Regular Rate Abdominal: Yes: Non Tender, Flat, Soft Back: Yes: Normal Inspection Musculoskeletal: Yes: full range of Motion Neurological: 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: 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 NML intact, Fully Oriented, Alert, Motor Strength 5/5, Normal Mood/Affect Integumentary: Yes: Rash - Diagnostic (1) Alcohol dependence Current Visit: No Status: Acute (2) Opioid dependence with withdrawal Current Visit: No Status: Acute (3) Anxiety and depression Current Visit: No Status: Chronic (4) Borderline high blood pressure Current Visit: No Status: Chronic Cleared for Admission [facility] - Detox or Rehab [facility] Level of Care: Medically Supervised Breathalyzer - Breathalyzer Breathalyzer: 0 Urine Drug Screen - Test Device Lot number: [id number] Expiration date: 07/11/20 - Control Is test valid?: Yes - Results Drug screen NEGATIVE: No Urine drug screen results: THC-Marijuana, ALEJANDRO-Cocaine, MOP-Opiates, BUP-Suboxone Inpatient Rehab Admission - Rehab Decision to Admit Inpatient rehab admission?: No
[2018-12-02] MEDS ORDERED: MAG HYDROX/AL HYDROX/SIMETH 30 ML UNIT-DOSE CUP PO PRN (13:06)
[2018-12-02] MEDS ORDERED: P-EPHED 60MG/TRIPROLIDI 2.5MG TABLET PO PRN (13:06)
[2018-12-02] MEDS ORDERED: ACETAMINOPHEN 325 MG TABLET (FP) PO PRN (13:06)
[2018-12-02] MEDS ORDERED: MAGNESIUM HYDROX 2400MG/30ML ORAL SUSPENSION 30 ML CUP PO PRN (13:06)
[2018-12-02] MEDS ORDERED: guaiFENesin 200 MG/10 ML 10 ML UNIT-DOSE CUPS PO PRN (13:06)
[2018-12-02] MEDS ORDERED: MAGNESIUM CITRATE 300 ML BOTTLE PO PRN (13:06)
[2018-12-02] MEDS ORDERED: LOPERAMIDE HCL 2 MG CAPSULE PO PRN (13:06)
[2018-12-02] MEDS ORDERED: MENTHOL/PHENOL 1 EACH UD MM PRN (13:06)
[2018-12-02] MEDS: BUPRENORPHINE/NALOXONE 8 MG/2 MG FILM PACKET SL SCH (14:20)
[2018-12-02] MEDS: amLODIPine BESYLATE 5 MG TABLET (FP) PO SCH (14:20)
--- NOTE | 2018-12-02 14:35 | PN ---
Teaching Attending Note Name of Resident: Dilan Recinos ATTENDING PHYSICIAN STATEMENT I saw and evaluated the patient. I reviewed the resident's note and discussed the case with the resident. I agree with the resident's findings and plan as documented. SUBJECTIVE: Opioid use while in Buprenorphine program , did not take meds today cannabis : 2-3 blunts/day cocaine : 2-3 x / month alcohol : occasionally OBJECTIVE: wnwd Vital Signs - 24 hr 12/02/18 12/02/18 11:02 13:55 Temperature 98.3 F 98.3 F Pulse Rate 67 61 Respiratory 18 18 Rate Blood Pressure 146/77 136/86 monthl;y rx for Buprenorphine , admits to participation in program , states planning to go to Long -term and taper off Suboxone . ASSESSMENT AND PLAN: Cannabis use disorder - rehab .
[2018-12-02 16:23] LABS: HEMATOCRIT 41.6 % (35.4-49); HEMOGLOBIN 13.2 GM/dL (11.7-16.9); MCH 29.2 pg (25.7-33.7); MCHC 31.8 g/dl (32.0-35.9); MEAN PLT VOLUME 10.3 fl (7.5-11.1); PLATELET COUNT 258 K/MM3 (134-434); RBC 4.53 M/mm3 (4.00-5.60); RDW 13.4 % (11.9-15.9)
[2018-12-02 16:35] LABS: ALBUMIN 3.9 g/dl (3.4-5.0); BILIRUBIN,TOTAL 0.3 mg/dL (0.2-1); CALCIUM 9.3 mg/dL (8.5-10.1); CREATININE 0.8 mg/dL (0.55-1.3); POTASSIUM 4.1 mmol/L (3.5-5.1); TOT PROT 7.2 g/dl (6.4-8.2)
[2018-12-02] MEDS: ATORVASTATIN CA 20 MG TABLET (FP) PO SCH (22:00)
[2018-12-02] MEDS: MELATONIN 5 MG TABLETS PO PRN (22:00)
[2018-12-02] MEDS: THIAMINE HCL 100 MG TABLET (FP) PO SCH (22:00)
[2018-12-03] MEDS: amLODIPine BESYLATE 5 MG TABLET (FP) PO SCH (10:51)
[2018-12-03] MEDS: PRENATAL VITAMINS W/ FOLIC ACID TABLET (FP) PO SCH (10:51)
[2018-12-03] MEDS: NICOTINE 21 MG/24 HOURS TOPICAL PATCH TD SCH (10:51)
[2018-12-03] MEDS: BUPRENORPHINE/NALOXONE 8 MG/2 MG FILM PACKET SL SCH (10:53)
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
[2018-12-03 17:35] LABS: PH,URINE 7.5 (5.0-8.0); URINE APPEARANCE CLEAR; URINE BILIRUBIN NEGATIVE (NEGATIVE); URINE COLOR YELLOW; URINE GLUCOSE (UA) NEGATIVE (NEGATIVE); URINE KETONE NEGATIVE (NEGATIVE); URINE LEUK ESTERASE NEGATIVE (NEGATIVE); URINE NITRITE NEGATIVE (NEGATIVE); URINE PROTEIN NEGATIVE (NEGATIVE); URINE UROBILINOGEN 0.2 mg/dL (0.2-1.0)
[2018-12-03] MEDS: MELATONIN 5 MG TABLETS PO PRN (21:47)
[2018-12-03] MEDS: THIAMINE HCL 100 MG TABLET (FP) PO SCH (21:47)
[2018-12-03] MEDS: ATORVASTATIN CA 20 MG TABLET (FP) PO SCH (21:47)
[2018-12-03] MEDS: IBUPROFEN 400 MG TABLET (FP) PO PRN (21:49)
[2018-12-04] MEDS: NICOTINE 21 MG/24 HOURS TOPICAL PATCH TD SCH (10:40)
[2018-12-04] MEDS: amLODIPine BESYLATE 5 MG TABLET (FP) PO SCH (10:40)
[2018-12-04] MEDS: PRENATAL VITAMINS W/ FOLIC ACID TABLET (FP) PO SCH (10:40)
[2018-12-04] MEDS: BUPRENORPHINE/NALOXONE 8 MG/2 MG FILM PACKET SL SCH (10:41)
[2018-12-04] MEDS: IBUPROFEN 400 MG TABLET (FP) PO PRN (12:28)
[2018-12-04] MEDS: THIAMINE HCL 100 MG TABLET (FP) PO SCH (21:51)
[2018-12-04] MEDS: ATORVASTATIN CA 20 MG TABLET (FP) PO SCH (21:51)
[2018-12-04] MEDS: MELATONIN 5 MG TABLETS PO PRN (21:51)
[2018-12-05] MEDS: amLODIPine BESYLATE 5 MG TABLET (FP) PO SCH (10:50)
[2018-12-05] MEDS: PRENATAL VITAMINS W/ FOLIC ACID TABLET (FP) PO SCH (10:50)
[2018-12-05] MEDS: BUPRENORPHINE/NALOXONE 8 MG/2 MG FILM PACKET SL SCH (10:51)
[2018-12-05] MEDS: NICOTINE 21 MG/24 HOURS TOPICAL PATCH TD SCH (10:51)
[2018-12-05] MEDS: ATORVASTATIN CA 20 MG TABLET (FP) PO SCH (22:03)
[2018-12-05] MEDS: THIAMINE HCL 100 MG TABLET (FP) PO SCH (22:04)
[2018-12-05] MEDS: IBUPROFEN 400 MG TABLET (FP) PO PRN (22:04)
[2018-12-06] MEDS: PRENATAL VITAMINS W/ FOLIC ACID TABLET (FP) PO SCH (10:05)
[2018-12-06] MEDS: amLODIPine BESYLATE 5 MG TABLET (FP) PO SCH (10:05)
[2018-12-06] MEDS: BUPRENORPHINE/NALOXONE 8 MG/2 MG FILM PACKET SL SCH (10:05)
[2018-12-06] MEDS: NICOTINE 21 MG/24 HOURS TOPICAL PATCH TD SCH (10:06)
[2018-12-06] MEDS: MELATONIN 5 MG TABLETS PO PRN (21:45)
[2018-12-06] MEDS: THIAMINE HCL 100 MG TABLET (FP) PO SCH (21:45)
[2018-12-06] MEDS: ATORVASTATIN CA 20 MG TABLET (FP) PO SCH (21:45)
[2018-12-07] MEDS: PRENATAL VITAMINS W/ FOLIC ACID TABLET (FP) PO SCH (10:34)
[2018-12-07] MEDS: amLODIPine BESYLATE 5 MG TABLET (FP) PO SCH (10:34)
[2018-12-07] MEDS: BUPRENORPHINE/NALOXONE 8 MG/2 MG FILM PACKET SL SCH (10:34)
[2018-12-07] MEDS: NICOTINE 21 MG/24 HOURS TOPICAL PATCH TD SCH (10:34)
[2018-12-07] MEDS: ATORVASTATIN CA 20 MG TABLET (FP) PO SCH (21:39)
[2018-12-07] MEDS: THIAMINE HCL 100 MG TABLET (FP) PO SCH (21:40)
[2018-12-08] MEDS: amLODIPine BESYLATE 5 MG TABLET (FP) PO SCH (11:06)
[2018-12-08] MEDS: PRENATAL VITAMINS W/ FOLIC ACID TABLET (FP) PO SCH (11:06)
[2018-12-08] MEDS: BUPRENORPHINE/NALOXONE 8 MG/2 MG FILM PACKET SL SCH (11:07)
[2018-12-08] MEDS: NICOTINE 21 MG/24 HOURS TOPICAL PATCH TD SCH (11:08)
[2018-12-08] MEDS: THIAMINE HCL 100 MG TABLET (FP) PO SCH (22:00)
[2018-12-08] MEDS: ATORVASTATIN CA 20 MG TABLET (FP) PO SCH (22:00)
[2018-12-09] MEDS: NICOTINE 21 MG/24 HOURS TOPICAL PATCH TD SCH (10:40)
[2018-12-09] MEDS: BUPRENORPHINE/NALOXONE 8 MG/2 MG FILM PACKET SL SCH (10:40)
[2018-12-09] MEDS: PRENATAL VITAMINS W/ FOLIC ACID TABLET (FP) PO SCH (10:40)
[2018-12-09] MEDS: amLODIPine BESYLATE 5 MG TABLET (FP) PO SCH (10:40)
[2018-12-09] MEDS: THIAMINE HCL 100 MG TABLET (FP) PO SCH (21:47)
[2018-12-09] MEDS: ATORVASTATIN CA 20 MG TABLET (FP) PO SCH (21:47)
[2018-12-10] MEDS: NICOTINE 21 MG/24 HOURS TOPICAL PATCH TD SCH (10:54)
[2018-12-10] MEDS: PRENATAL VITAMINS W/ FOLIC ACID TABLET (FP) PO SCH (10:55)
[2018-12-10] MEDS: amLODIPine BESYLATE 5 MG TABLET (FP) PO SCH (10:55)
[2018-12-10] MEDS: BUPRENORPHINE/NALOXONE 8 MG/2 MG FILM PACKET SL SCH (10:55)
[2018-12-10] MEDS: ATORVASTATIN CA 20 MG TABLET (FP) PO SCH (21:58)
[2018-12-10] MEDS: THIAMINE HCL 100 MG TABLET (FP) PO SCH (21:58)
[2018-12-11] MEDS: amLODIPine BESYLATE 5 MG TABLET (FP) PO SCH (10:58)
[2018-12-11] MEDS: PRENATAL VITAMINS W/ FOLIC ACID TABLET (FP) PO SCH (10:58)
[2018-12-11] MEDS: BUPRENORPHINE/NALOXONE 8 MG/2 MG FILM PACKET SL SCH (10:59)
[2018-12-11] MEDS: NICOTINE 21 MG/24 HOURS TOPICAL PATCH TD SCH (11:00)
[2018-12-11] MEDS: ATORVASTATIN CA 20 MG TABLET (FP) PO SCH (21:55)
[2018-12-11] MEDS: THIAMINE HCL 100 MG TABLET (FP) PO SCH (21:55)
[2018-12-12] MEDS: BUPRENORPHINE/NALOXONE 8 MG/2 MG FILM PACKET SL SCH (10:31)
[2018-12-12] MEDS: amLODIPine BESYLATE 5 MG TABLET (FP) PO SCH (10:31)
[2018-12-12] MEDS: PRENATAL VITAMINS W/ FOLIC ACID TABLET (FP) PO SCH (10:31)
[2018-12-12] MEDS: NICOTINE 21 MG/24 HOURS TOPICAL PATCH TD SCH (10:31)
[2018-12-12] MEDS: ATORVASTATIN CA 20 MG TABLET (FP) PO SCH (21:41)
[2018-12-12] MEDS: THIAMINE HCL 100 MG TABLET (FP) PO SCH (21:41)
[2018-12-13] MEDS: BUPRENORPHINE/NALOXONE 8 MG/2 MG FILM PACKET SL SCH (10:15)
[2018-12-13] MEDS: PRENATAL VITAMINS W/ FOLIC ACID TABLET (FP) PO SCH (10:15)
[2018-12-13] MEDS: amLODIPine BESYLATE 5 MG TABLET (FP) PO SCH (10:15)
[2018-12-13] MEDS: NICOTINE 21 MG/24 HOURS TOPICAL PATCH TD SCH (10:16)
[2018-12-13] MEDS: THIAMINE HCL 100 MG TABLET (FP) PO SCH (21:47)
[2018-12-13] MEDS: ATORVASTATIN CA 20 MG TABLET (FP) PO SCH (21:47)
[2018-12-14] MEDS: amLODIPine BESYLATE 5 MG TABLET (FP) PO SCH (09:38)
[2018-12-14] MEDS: PRENATAL VITAMINS W/ FOLIC ACID TABLET (FP) PO SCH (09:38)
[2018-12-14] MEDS: BUPRENORPHINE/NALOXONE 8 MG/2 MG FILM PACKET SL SCH (09:38)
[2018-12-14] MEDS: NICOTINE 21 MG/24 HOURS TOPICAL PATCH TD SCH (09:38)
--- NOTE | 2018-12-14 20:56 | DS ---
[facility] Rehab Discharge Summary - [facility] Rehab Discharge Summary Admission Date: 12/02/18 Discharge Date: 12/15/18 - History Present History: Alcohol dependence, Cannabis dependence, Cocaine dependence, Opioid dependence Additional Comments: CLIENT REQUESTING TO LEAVE BEFORE SCHEDULE DC FOR 12/15/2018. STATES HE DOES NOT WANT TO LOSE HIS BED AT THE ALF AND NEEDS TO GET THERE BEFORE 12/15/2018 Pertinent Past History: HLD [place] SEIZURE DEPRESSION HTN - Discharge Physical Exam Vital Signs: Vital Signs Temperature 97.9 F 12/14/18 06:55 Pulse Rate 90 12/14/18 10:00 Respiratory Rate 18 12/14/18 06:55 Blood Pressure 115/77 12/14/18 10:00 O2 Sat by Pulse Oximetry (%) Pertinent Admission Physical Exam Findings: S/P DETOX FOR ALCOHOL AND HEROIN. ADMITTED ON 12/02/2018 FOR REHAB. - Treatment Discharge Condition: Outpatient referral accepted (CLIENT IS RETURNING BACK TO HIS ALF WERE HE RECIEVES ALL MEDICAL CARE AND HIS SUBOXONE MGMT) - Medication Discharge Medications: Ambulatory Orders Amlodipine Besylate [Norvasc -] 5 mg PO DAILY #14 tablet 08/27/17 Atorvastatin Calcium [Lipitor] 20 mg PO DAILY #14 tablet 08/27/17 - Medication-Assisted Treatment (MAT) Medication-Assisted Treatment (MAT): Yes Medication Prescribed: Buprenorphine - Discharge Instructions Diet, activity, other medical instructions: Diet: Activity: Other medical instructions: - Diagnosis (1) Opioid dependence, uncomplicated Status: Acute (2) Nicotine dependence, uncomplicated Status: Acute Qualifiers: Nicotine product type: cigarettes Qualified Code(s): F17.210 - Nicotine dependence, cigarettes, uncomplicated (3) Borderline high blood pressure Status: Chronic (4) Cannabis dependence Status: Chronic (5) Hypercholesterolemia Status: Chronic (6) Hypertension Status: Chronic Qualifiers: Hypertension type: essential hypertension Qualified Code(s): I10 - Essential (primary) hypertension (7) Opioid dependence Status: Chronic Qualifiers: Substance use status: uncomplicated Qualified Code(s): F11.20 - Opioid dependence, uncomplicated (8) History of hypercholesterolemia Status: Suspected (9) Substance induced mood disorder Status: Suspected (10) History of [place] (myocardial infarction) Status: Resolved - Follow-up Referral Minutes to complete discharge: 30 - AMA Did Patient Leave Against Medical Advice: No
[2018-12-14 20:59] VITALS: BP 146/77; PULSE 81; TEMP 98.1
[2018-12-14] MEDS: ATORVASTATIN CA 20 MG TABLET (FP) PO SCH (21:34)
[2018-12-14] MEDS: THIAMINE HCL 100 MG TABLET (FP) PO SCH (21:34)
== END 2018-12-14 09:40 | disposition home or self-care (01) | DRG 772 ==
LOC: YASAS 10:29 → Y5N 13:16
PROVIDERS: ADMIT Neuromusculoskeletal Medicine & OMM; ATTEND Neuromusculoskeletal Medicine & OMM
PROC: HZ42ZZZ Group Counseling for Substance Abuse Treatment, Cognitive-Behavioral (ICD-10-PCS; principal; 2018-12-02)
DX: F11.20 Opioid dependence, uncomplicated (principal); F10.20 Alcohol dependence, uncomplicated; F12.20 Cannabis dependence, uncomplicated; F17.210 Nicotine dependence, cigarettes, uncomplicated; F19.24 Other psychoactive substance dependence with psychoactive substance-induced mood disorder; F41.9 Anxiety disorder, unspecified; F32.9 Major depressive disorder, single episode, unspecified; I10 Essential (primary) hypertension; R03.0 Elevated blood-pressure reading, without diagnosis of hypertension; E78.00 Pure hypercholesterolemia, unspecified; I25.2 Old myocardial infarction; Z86.69 Personal history of other diseases of the nervous system and sense organs; Z91.14 Patient's other noncompliance with medication regimen; Z91.013 Allergy to seafood; Z91.011 Allergy to milk products; Z91.018 Allergy to other foods; Z59.0 Homelessness
CPT/HCPCS: 36415; 80053; 81003; 85027; 86593; 87389

== ENCOUNTER 2019-03-01 09:05 | Inpatient (IN) | payer OTHER ==
[2019-03-01 09:50] VITALS: BMI 22.1
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
[2019-03-01] MEDS ORDERED: hydrOXYzine PAMOATE 25 MG CAPSULE (FP) PO PRN (10:35)
[2019-03-01] MEDS ORDERED: MAG HYDROX/AL HYDROX/SIMETH 30 ML UNIT-DOSE CUP PO PRN (10:35)
[2019-03-01] MEDS ORDERED: MELATONIN 5 MG TABLETS PO PRN (10:35)
[2019-03-01] MEDS ORDERED: BISMUTH SUBSALICYLATE 524 MG/30 ML UD PO PRN (10:35)
[2019-03-01] MEDS ORDERED: NICOTINE POLACRILEX 2 MG GUM BUC PRN (10:35)
[2019-03-01] MEDS ORDERED: MENTHOL/PHENOL 1 EACH UD MM PRN (10:35)
[2019-03-01] MEDS ORDERED: MAGNESIUM CITRATE 300 ML BOTTLE PO PRN (10:35)
[2019-03-01] MEDS ORDERED: ACETAMINOPHEN 325 MG TABLET (FP) PO PRN ×2 (10:35)
[2019-03-01] MEDS ORDERED: MAGNESIUM HYDROX 2400MG/30ML ORAL SUSPENSION 30 ML CUP PO PRN (10:35)
[2019-03-01] MEDS ORDERED: METHOCARBAMOL 500 MG TABLET PO PRN (10:35)
[2019-03-01] MEDS ORDERED: IBUPROFEN 400 MG TABLET (FP) PO PRN (10:35)
[2019-03-01] MEDS ORDERED: cloNIDine HCL 0.1 MG TABLET PO PRN (10:38)
[2019-03-01] MEDS ORDERED: METHADONE HCL 10 MG TABLET (FOR DETOX USE ONLY) PO ONE ×2 (11:00→12:15)
--- NOTE | 2019-03-01 13:11 | PN ---
S Progress Note Note: pt was very irate as to why his first dose of methadone was so low. chart reviewed and dose of methadone adjusted pt is now happy and in agreement of new updated dose taper.
[2019-03-01] MEDS: diazePAM 5 MG TABLET PO PRN (18:04)
[2019-03-01] MEDS: THIAMINE HCL 100 MG TABLET (FP) PO SCH (23:06)
[2019-03-02] MEDS ORDERED: METHADONE HCL 5 MG TABLET (FOR DETOX USE ONLY) ONE (09:42)
[2019-03-02] MEDS ORDERED: METHADONE HCL 10 MG TABLET (FOR DETOX USE ONLY) ONE (09:42)
[2019-03-02] MEDS ORDERED: METHADONE (DETOX) 20 MG, METHADONE (DETOX) 5 MG PO ONE (10:00)
[2019-03-02] MEDS ORDERED: METHADONE HCL 5 MG TABLET (FOR DETOX USE ONLY) PO ONE (10:00)
--- NOTE | 2019-03-02 10:14 | PN ---
BHS COWS - Scale Resting Pulse: 0= [place] 80 or Below Sweatin= Chills/Flushing Restless Observation: 1= Difficult to Sit Still Pupil Size: 0= Normal to Room Light Bone or Joint Aches: 1= Mild Discomfort Runny Nose/ Eye Tearin= Nasal Congestion GI Upset > 30mins: 1= Stomach Cramp Tremor Observation of Outstretched Hands: 1= Tremor [place], Not Seen Yawning Observation: 2= >3x During Session Anxiety or Irritability: 2=Irritable/Anxious Goose Flesh Skin: 0=Smooth Skin COWS Score: 10 BHS Progress Note (SOAP) Subjective: c/o of interrupted, chills,sweats Objective: 03/02/19 10:13 Vital Signs Temperature 96.8 F L 03/02/19 06:57 Pulse Rate 75 03/02/19 09:43 Respiratory Rate 18 03/02/19 09:43 Blood Pressure 139/75 03/02/19 09:43 O2 Sat by Pulse Oximetry (%) Assessment: 03/02/19 12:06 Aox3 no acute distress EENT WNL No abd tenderness FUll ROM no gait disturbance ambulating in the unit withdrawal sx Plan: increase fluids continue detox continue to monitor labs pending
[2019-03-02] MEDS: PRENATAL VITAMINS W/ FOLIC ACID TABLET (FP) PO SCH (10:34)
[2019-03-02 12:33] LABS: ALBUMIN 3.2 g/dl (3.4-5.0); BILIRUBIN,TOTAL 0.2 mg/dL (0.2-1); CALCIUM 8.7 mg/dL (8.5-10.1); CREATININE 0.9 mg/dL (0.55-1.3); TOT PROT 6.2 g/dl (6.4-8.2)
[2019-03-02 12:38] LABS: HEMATOCRIT 39.6 % (35.4-49); HEMOGLOBIN 13.1 GM/dL (11.7-16.9); MCH 30.1 pg (25.7-33.7); MCHC 33.2 g/dl (32.0-35.9); MEAN CELL VOLUME 90.8 fl (80-96); MEAN PLT VOLUME 9.7 fl (7.5-11.1); PLATELET COUNT 236 K/MM3 (134-434); RBC 4.36 M/mm3 (4.00-5.60); RDW 14.1 % (11.9-15.9); WHITE BLOOD COUNT 6.4 K/mm3 (4.0-10.0)
[2019-03-02] MEDS: diazePAM 5 MG TABLET PO PRN (19:52)
[2019-03-02] MEDS: THIAMINE HCL 100 MG TABLET (FP) PO SCH (21:24)
--- NOTE | 2019-03-03 09:36 | PN ---
BHS COWS - Scale Resting Pulse: 0= [place] 80 or Below Sweatin= Chills/Flushing Restless Observation: 1= Difficult to Sit Still Pupil Size: 0= Normal to Room Light Bone or Joint Aches: 2= Severe Diffuse Aches Runny Nose/ Eye Tearin= Nasal Congestion GI Upset > 30mins: 0= None Tremor Observation of Outstretched Hands: 1= Tremor [place], Not Seen Yawning Observation: 1= 1-2x During Session Anxiety or Irritability: 2=Irritable/Anxious Goose Flesh Skin: 0=Smooth Skin COWS Score: 9 BHS Progress Note (SOAP) Subjective: irritable agitation sweats restless Objective: 03/03/19 09:36 Vital Signs Temperature 97.7 F 03/03/19 09:25 Pulse Rate 70 03/03/19 09:25 Respiratory Rate 16 03/03/19 09:25 Blood Pressure 137/79 03/03/19 09:25 O2 Sat by Pulse Oximetry (%) Laboratory Tests 03/02/19 03/02/19 03/02/19 07:25 07:25 07:25 WBC 6.4 RBC 4.36 Hgb 13.1 Hct 39.6 MCV 90.8 MCH 30.1 MCHC 33.2 RDW 14.1 Plt Count 236 MPV 9.7 Sodium 141 Potassium 4.0 Chloride 107 Carbon Dioxide 30 Anion Gap 4 L BUN 12.0 Creatinine 0.9 Est GFR (CKD-EPI)AfAm 111.05 Est GFR (CKD-EPI)NonAf 95.81 Random Glucose 85 Calcium 8.7 Total Bilirubin 0.2 AST 7 L ALT 16 Alkaline Phosphatase 59 Total Protein 6.2 L Albumin 3.2 L RPR Titer HIV 1&2 Antibody Screen Negative HIV P24 Antigen Negative 03/02/19 07:25 WBC RBC Hgb Hct MCV MCH MCHC RDW Plt Count MPV Sodium Potassium Chloride Carbon Dioxide Anion Gap BUN Creatinine Est GFR (CKD-EPI)AfAm Est GFR (CKD-EPI)NonAf Random Glucose Calcium Total Bilirubin AST ALT Alkaline Phosphatase Total Protein Albumin RPR Titer Nonreactive HIV 1&2 Antibody Screen HIV P24 Antigen aaox3 ambulating no acute distress Assessment: 03/03/19 09:36 withdrawals Plan: continue detox
[2019-03-03] MEDS ORDERED: METHADONE HCL 10 MG TABLET (FOR DETOX USE ONLY) PO ONE ×2 (10:00)
[2019-03-03] MEDS: PRENATAL VITAMINS W/ FOLIC ACID TABLET (FP) PO SCH (10:18)
[2019-03-03] MEDS: diazePAM 5 MG TABLET PO PRN ×2 (17:03→22:07)
[2019-03-03] MEDS: THIAMINE HCL 100 MG TABLET (FP) PO SCH (22:10)
[2019-03-04] MEDS ORDERED: METHADONE HCL 5 MG TABLET (FOR DETOX USE ONLY) PO ONE (06:00)
[2019-03-04] MEDS ORDERED: METHADONE HCL 10 MG TABLET (FOR DETOX USE ONLY) ONE (09:11)
[2019-03-04] MEDS ORDERED: METHADONE HCL 5 MG TABLET (FOR DETOX USE ONLY) ONE (09:11)
[2019-03-04] MEDS ORDERED: METHADONE (DETOX) 10 MG, METHADONE (DETOX) 5 MG PO ONE (10:00)
[2019-03-04] MEDS: PRENATAL VITAMINS W/ FOLIC ACID TABLET (FP) PO SCH (10:30)
--- NOTE | 2019-03-04 11:59 | PN ---
BHS COWS - Scale Resting Pulse: 1= [place] 81-100 Sweatin= Chills/Flushing Restless Observation: 1= Difficult to Sit Still Pupil Size: 0= Normal to Room Light Bone or Joint Aches: 0= None Runny Nose/ Eye Tearin= None GI Upset > 30mins: 0= None Tremor Observation of Outstretched Hands: 1= Tremor [place], Not Seen Yawning Observation: 1= 1-2x During Session Anxiety or Irritability: 1=Feels Anxious/Irritable Goose Flesh Skin: 0=Smooth Skin COWS Score: 6 BHS Progress Note (SOAP) Subjective: sweats agitation Objective: 03/04/19 12:01 Vital Signs Temperature 98.1 F 03/04/19 09:13 Pulse Rate 81 03/04/19 09:13 Respiratory Rate 18 03/04/19 09:13 Blood Pressure 129/80 03/04/19 09:13 O2 Sat by Pulse Oximetry (%) aaox3 ambulating no acute distress Assessment: 03/04/19 12:02 withdrawals Plan: continue detox
[2019-03-04] MEDS: THIAMINE HCL 100 MG TABLET (FP) PO SCH (22:31)
--- NOTE | 2019-03-05 09:02 | PN ---
BHS COWS - Scale Resting Pulse: 1= [place] 81-100 Sweatin= No chills or Flushing Restless Observation: 1= Difficult to Sit Still Pupil Size: 0= Normal to Room Light Bone or Joint Aches: 1= Mild Discomfort Runny Nose/ Eye Tearin= None GI Upset > 30mins: 0= None Tremor Observation of Outstretched Hands: 1= Tremor [place], Not Seen Yawning Observation: 0= None Anxiety or Irritability: 2=Irritable/Anxious Goose Flesh Skin: 0=Smooth Skin COWS Score: 6 BHS Progress Note (SOAP) Subjective: Patient is a 53 yo male with hx of opioid dependence c/o of chills, anxious interrupted sleep. Patient is motivated to go to rehab for after care, MAT reviewed , educated on benefits and risks MAT therapy including MMTP. Patient reports prior tx with suboxone prior to relapse and plasns to resume bup therapy while in rehab. Objective: 03/05/19 09:02 Vital Signs Temperature 98.0 F 03/05/19 06:39 Pulse Rate 65 03/05/19 07:41 Respiratory Rate 18 03/05/19 06:39 Blood Pressure 142/91 03/05/19 07:41 O2 Sat by Pulse Oximetry (%) Laboratory Last Values WBC 6.4 K/mm3 (4.0-10.0) 03/02/19 07:25 RBC 4.36 M/mm3 (4.00-5.60) 03/02/19 07:25 Hgb 13.1 GM/dL (11.7-16.9) 03/02/19 07:25 Hct 39.6 % (35.4-49) 03/02/19 07:25 MCV 90.8 fl (80-96) 03/02/19 07:25 MCH 30.1 pg (25.7-33.7) 03/02/19 07:25 MCHC 33.2 g/dl (32.0-35.9) 03/02/19 07:25 RDW 14.1 % (11.9-15.9) 03/02/19 07:25 Plt Count 236 K/MM3 (134-434) 03/02/19 07:25 MPV 9.7 fl (7.5-11.1) 03/02/19 07:25 Sodium 141 mmol/L (136-145) 03/02/19 07:25 Potassium 4.0 mmol/L (3.5-5.1) 03/02/19 07:25 Chloride 107 mmol/L (98-107) 03/02/19 07:25 Carbon Dioxide 30 mmol/L (21-32) 03/02/19 07:25 Anion Gap 4 MMOL/L (8-16) L 03/02/19 07:25 BUN 12.0 mg/dL (7-18) 03/02/19 07:25 Creatinine 0.9 mg/dL (0.55-1.3) 03/02/19 07:25 Est GFR (CKD-EPI)AfAm 111.05 03/02/19 07:25 Est GFR (CKD-EPI)NonAf 95.81 03/02/19 07:25 Random Glucose 85 mg/dL (74-106) 03/02/19 07:25 Calcium 8.7 mg/dL (8.5-10.1) 03/02/19 07:25 Total Bilirubin 0.2 mg/dL (0.2-1) 03/02/19 07:25 AST 7 U/L (15-37) L 03/02/19 07:25 ALT 16 U/L (13-61) 03/02/19 07:25 Alkaline Phosphatase 59 U/L (45-117) 03/02/19 07:25 Total Protein 6.2 g/dl (6.4-8.2) L 03/02/19 07:25 Albumin 3.2 g/dl (3.4-5.0) L 03/02/19 07:25 RPR Titer Nonreactive (NONREACTIVE) 03/02/19 07:25 HIV 1&2 Antibody Screen Negative 03/02/19 07:25 HIV P24 Antigen Negative 03/02/19 07:25 Assessment: 03/05/19 11:51 Vital Signs Temperature 99.3 F 03/05/19 10:57 Pulse Rate 89 03/05/19 10:57 Respiratory Rate 18 03/05/19 10:57 Blood Pressure 164/87 03/05/19 10:57 O2 Sat by Pulse Oximetry (%) Laboratory Last Values WBC 6.4 K/mm3 (4.0-10.0) 03/02/19 07:25 RBC 4.36 M/mm3 (4.00-5.60) 03/02/19 07:25 Hgb 13.1 GM/dL (11.7-16.9) 03/02/19 07:25 Hct 39.6 % (35.4-49) 03/02/19 07:25 MCV 90.8 fl (80-96) 03/02/19 07:25 MCH 30.1 pg (25.7-33.7) 03/02/19 07:25 MCHC 33.2 g/dl (32.0-35.9) 03/02/19 07:25 RDW 14.1 % (11.9-15.9) 03/02/19 07:25 Plt Count 236 K/MM3 (134-434) 03/02/19 07:25 MPV 9.7 fl (7.5-11.1) 03/02/19 07:25 Sodium 141 mmol/L (136-145) 03/02/19 07:25 Potassium 4.0 mmol/L (3.5-5.1) 03/02/19 07:25 Chloride 107 mmol/L (98-107) 03/02/19 07:25 Carbon Dioxide 30 mmol/L (21-32) 03/02/19 07:25 Anion Gap 4 MMOL/L (8-16) L 03/02/19 07:25 BUN 12.0 mg/dL (7-18) 03/02/19 07:25 Creatinine 0.9 mg/dL (0.55-1.3) 03/02/19 07:25 Est GFR (CKD-EPI)AfAm 111.05 03/02/19 07:25 Est GFR (CKD-EPI)NonAf 95.81 03/02/19 07:25 Random Glucose 85 mg/dL (74-106) 03/02/19 07:25 Calcium 8.7 mg/dL (8.5-10.1) 03/02/19 07:25 Total Bilirubin 0.2 mg/dL (0.2-1) 03/02/19 07:25 AST 7 U/L (15-37) L 03/02/19 07:25 ALT 16 U/L (13-61) 03/02/19 07:25 Alkaline Phosphatase 59 U/L (45-117) 03/02/19 07:25 Total Protein 6.2 g/dl (6.4-8.2) L 03/02/19 07:25 Albumin 3.2 g/dl (3.4-5.0) L 03/02/19 07:25 RPR Titer Nonreactive (NONREACTIVE) 03/02/19 07:25 HIV 1&2 Antibody Screen Negative 03/02/19 07:25 HIV P24 Antigen Negative 03/02/19 07:25 labs reviewed Plan: Continue detox Continue to monitor
[2019-03-05] MEDS ORDERED: METHADONE HCL 10 MG TABLET (FOR DETOX USE ONLY) PO ONE (10:00)
[2019-03-05] MEDS: PRENATAL VITAMINS W/ FOLIC ACID TABLET (FP) PO SCH (10:05)
[2019-03-05] MEDS: THIAMINE HCL 100 MG TABLET (FP) PO SCH (23:09)
[2019-03-06] MEDS ORDERED: METHADONE HCL 5 MG TABLET (FOR DETOX USE ONLY) PO ONE (06:00)
[2019-03-06 06:48] VITALS: BP 146/63; PULSE 86; TEMP 97.9
== END 2019-03-06 07:01 | disposition home or self-care (01) | DRG 773 ==
LOC: YASAS 09:05 → Y6N 10:34
PROVIDERS: ADMIT Allergy & Immunology; ATTEND Allergy & Immunology
PROC: HZ2ZZZZ Detoxification Services for Substance Abuse Treatment (ICD-10-PCS; principal; 2019-03-01)
DX: F11.23 Opioid dependence with withdrawal (principal); F12.20 Cannabis dependence, uncomplicated; F17.210 Nicotine dependence, cigarettes, uncomplicated; F41.8 Other specified anxiety disorders; F32.9 Major depressive disorder, single episode, unspecified; G40.509 Epileptic seizures related to external causes, not intractable, without status epilepticus; I25.10 Atherosclerotic heart disease of native coronary artery without angina pectoris; I10 Essential (primary) hypertension; I25.2 Old myocardial infarction; E78.00 Pure hypercholesterolemia, unspecified; Z91.018 Allergy to other foods; Z91.013 Allergy to seafood; Z59.0 Homelessness
CPT/HCPCS: 36415; 80053; 85027; 86593; 87389; J0735

== ENCOUNTER 2019-03-31 10:06 | Inpatient (IN) | payer OTHER ==
--- NOTE | 2019-03-31 10:39 | BHS.RME ---
Substance Use & Tx History - Substance Use History Opiates (Heroin) Substance amount: 4=7 bags Frequency of use: Daily Substance route: Inhalation (ex: sniffing or snorting) Date of Last Use: 03/31/19 (6am) Nicotine Substance amount: 1 pack Frequency of use: Daily Substance route: Smoking Date of Last Use: 03/31/19 Physical/Psych/Mental Status - Behavior General Behavior: Increased activity (restlessness, agitation) Eye Contact: Normal - Cooperativeness Cooperativeness: Cooperative - Thinking Thought Processes: Tight, Logical, Goal Directed Thought content: Future oriented - Physical Health Problems Is patient presently having any pain?: No Does patient presently have any injuries (include location): No Does patient currently have a fever: No Is patient : No COWS - Scale Resting Pulse: 0= [place] 80 or Below Sweatin= No chills or Flushing Restless Observation: 1= Difficult to Sit Still Pupil Size: 0= Normal to Room Light Bone or Joint Aches: 4=Acute Joint/Muscle Pain Runny Nose/ Eye Tearin= Nasal Congestion GI Upset > 30mins: 1= Stomach Cramp Tremor Observation: 1= Tremor [place], Not Seen Yawning Observation: 1= 1-2x During Session Anxiety or Irritability: 2=Irritable/Anxious Goose Flesh Skin: 0=Smooth Skin (just used heroin this morning) COWS Score: 11
[2019-03-31 10:56] VITALS: BMI 21.3
--- NOTE | 2019-03-31 11:37 | HP ---
COWS - Scale Resting Pulse: 0= [place] 80 or Below Sweatin= No chills or Flushing Restless Observation: 1= Difficult to Sit Still Pupil Size: 0= Normal to Room Light Bone or Joint Aches: 4=Acute Joint/Muscle Pain Runny Nose/ Eye Tearin= Nasal Congestion GI Upset > 30mins: 1= Stomach Cramp Tremor Observation: 1= Tremor [place], Not Seen Yawning Observation: 1= 1-2x During Session Anxiety or Irritability: 2=Irritable/Anxious Goose Flesh Skin: 0=Smooth Skin (just used heroin this morning) COWS Score: 11 CIWA Score - Admission Criteria [facility]ASAS Guidelines: Admission for Medically Managed Detox: Requires at least one of the followin. CIWA greater than 12 2. Seizures within the past 24 hours 3. Delirium tremens within the past 24 hours 4. Hallucinations within the past 24 hours 5. Acute intervention needed for co occurring medical disorder 6. Acute intervention needed for co occurring psychiatric disorder 7. Severe withdrawal that cannot be handled at a lower level of care (continued vomiting, continued diarrhea, abnormal vital signs) requiring intravenous medication and/or fluids 8. Admitting History and Physical - Admission Chief Complaint: Mr. Dobson is a 53 yo gentleman who presents to [facility] "because I want to get better" from heroin use. History of Present Illness: Mr. Dobson is a 53 yo gentleman who presents to [facility] "because I want to get better" from heroin use. He as last here in February but left early due to a conflict with a patient. PMH: [place] at the age of 39 yo, CAD, HTN, HLD, seizure 4 mos ago while intoxicated Psych: depression on no meds Surg: none Substance use history: Heroine: first use at the age of 12y, last use 6 am today, 4-7 bags per day, inhales, street methadone 3 days ago. Overdose 4-5 times, last one 8 months ago. Not in a methadone program. Tried Suboxone but left Oct 2018. [facility]. cigs: 5-20 per day - Smoking History Smoking history: Current every day smoker Have you smoked in the past 12 months: Yes Aproximately how many cigarettes per day: 20 - Alcohol/Substance Use Hx Alcohol Use: No Admission ROS S - HPI Allergies/Adverse Reactions: Allergies Allergy/AdvReac Type Severity Reaction Status Date / Time shellfish derived Allergy Severe Swelling Verified 03/31/19 11:16 tomato Allergy Severe Swelling Verified 03/31/19 11:16 Fish Containing Products Allergy Mild Rash Verified 03/31/19 11:16 No Known Drug Allergies Allergy Verified 03/31/19 11:16 cheese AdvReac Intermediate Swelling Verified 03/31/19 11:16 Exam Limitations: No Limitations - Ebola screening Have you traveled outside of the country in the last 21 days: No Have you had contact with anyone from an Ebola affected area: No Have you been sick,other than usual withdrawal symptoms: No Do you have a fever: No - Review of Systems Constitutional: Unintentional Wgt. Loss (20 lb loss in 4 mos) EENT: reports: Blurred Vision Respiratory: reports: No Symptoms reported Cardiac: reports: No Symptoms Reported GI: reports: Nausea : reports: No Symptoms Reported Musculoskeletal: reports: Back Pain, Joint Pain, Muscle Pain Integumentary: reports: Other (left MCP are scrape after retrieving cans from garbage) Neuro: reports: Tremors Endocrine: reports: No Symptoms Reported Hematology: reports: No Symptoms Reported Psychiatric: reports: Anxious Patient History - Patient Medical History Hx Anemia: No Hx Asthma: No Hx Chronic Obstructive Pulmonary Disease (COPD): No Hx Cancer: No Hx Cardiac Disorders: Yes (old [place] at age 39) Hx Congestive Heart Failure: No Hx Hypertension: Yes (no medications) Hx Hypercholesterolemia: Yes (non adherent) Hx Pacemaker: No HX Cerebrovascular Accident: No Hx Seizures: Yes (drug r/t seizure last attack 2 months ago) Hx Dementia: No Hx Diabetes: No Hx Gastrointestinal Disorders: No Hx Liver Disease: No Hx Genitourinary Disorders: No Hx Sexually Transmitted Disorders: No Hx Renal Disease (ESRD): No Hx Thyroid Disease: No Hx Human Immunodeficiency Virus (HIV): No (Last Tested: 08/15/17 NEGATIVE) Hx Hepatitis C: No Hx Depression: Yes (AND ANXIETY) Hx Suicide Attempt: No Hx Bipolar Disorder: No Hx Schizophrenia: No - Patient Surgical History Past Surgical History: No Hx Neurologic Surgery: No Hx Cataract Extraction: No Hx Cardiac Surgery: No Hx Lung Surgery: No Hx Breast Surgery: No Hx Breast Biopsy: No Hx Abdominal Surgery: No Hx Appendectomy: No Hx Cholecystectomy: No Hx Genitourinary Surgery: No Hx Section: No Hx Orthopedic Surgery: No Anesthesia Reaction: No - PPD History Previous Implant?: Yes Documented Results: Negative w/proof Implanted On Prior [facility] Admission?: Yes Date: 12/09/17 Results: negative - Smoking Cessation Smoking history: Current every day smoker Have you smoked in the past 12 months: Yes Aproximately how many cigarettes per day: 20 Cigars Per Day: 0 Hx Chewing Tobacco Use: No Initiated information on smoking cessation: Yes 'Breaking Loose' booklet given: 03/31/19 - Substances abused Heroin Substance route: Inhalation Frequency: Daily Amount used: 5-7 bags Age of first use: 12 Date of last use: 03/31/19 Admission Physical Exam [facility] - Vital Signs Vital Signs: Vital Signs - 24 hr 03/31/19 11:17 Temperature 97.2 F L Pulse Rate 87 Respiratory 18 Rate Blood Pressure 167/89 - Physical General Appearance: Yes: Mild Distress, Thin, Anxious HEENTM: Yes: EOMI, Hearing grossly Normal, Normocephalic Respiratory: Yes: Lungs Clear, Normal Breath Sounds Neck: Yes: Within Normal Limits Breast: Yes: Breast Exam Deferred Cardiology: Yes: Regular Rate, S1, S2 Abdominal: Yes: Flat, Soft, Decreased BS, Tenderness (slight, diffuse) Genitourinary: Yes: Other (deferred) Back: Yes: Normal Inspection Musculoskeletal: Yes: Within Normal Limits Extremities: Yes: Within Normal Limits Neurological: Yes: Fully Oriented, Normal Response Integumentary: Yes: Other (superficial abrasion left D3 MCP area, ~ 1" in length , no signs of infection) Lymphatic: Yes: Within Normal Limits Cleared for Admission [facility] - Detox or Rehab [facility] Level of Care: Medically Managed Breathalyzer - Breathalyzer Breathalyzer: 0 Urine Drug Screen - Test Device Lot number: [id number] Expiration date: 01/10/21 - Control Is test valid?: Yes - Results Drug screen NEGATIVE: No Urine drug screen results: FEN-Fentanyl, MOP-Opiates, MTD-Methadone Inpatient Rehab Admission - Rehab Decision to Admit Inpatient rehab admission?: No
[2019-03-31] MEDS ORDERED: METHOCARBAMOL 500 MG TABLET PO PRN (11:41)
[2019-03-31] MEDS ORDERED: BISMUTH SUBSALICYLATE 262 MG/15 ML BTL PO PRN (11:41)
[2019-03-31] MEDS ORDERED: cloNIDine HCL 0.1 MG TABLET PO PRN (11:41)
[2019-03-31] MEDS ORDERED: MENTHOL/PHENOL 1 EACH UD MM PRN (11:41)
[2019-03-31] MEDS ORDERED: IBUPROFEN 400 MG TABLET (FP) PO PRN (11:41)
[2019-03-31] MEDS ORDERED: MAG HYDROX/AL HYDROX/SIMETH 30 ML UNIT-DOSE CUP PO PRN (11:41)
[2019-03-31] MEDS ORDERED: ACETAMINOPHEN 325 MG TABLET (FP) PO PRN ×2 (11:41)
[2019-03-31] MEDS ORDERED: MELATONIN 5 MG TABLETS PO PRN (11:41)
[2019-03-31] MEDS ORDERED: MAGNESIUM HYDROX 2400MG/30ML ORAL SUSPENSION 30 ML CUP PO PRN (11:41)
[2019-03-31] MEDS ORDERED: MAGNESIUM CITRATE 300 ML BOTTLE PO PRN (11:41)
[2019-03-31] MEDS ORDERED: hydrOXYzine PAMOATE 25 MG CAPSULE (FP) PO PRN (11:41)
[2019-03-31] MEDS ORDERED: METHADONE HCL 10 MG TABLET (FOR DETOX USE ONLY) PO ONE (12:10)
[2019-03-31] MEDS: NICOTINE 21 MG/24 HOURS TOPICAL PATCH TD SCH (12:48)
[2019-03-31 16:19] LABS: HEMATOCRIT 37.5 % (35.4-49); HEMOGLOBIN 12.5 GM/dL (11.7-16.9); MCH 30.8 pg (25.7-33.7); MCHC 33.3 g/dl (32.0-35.9); MEAN CELL VOLUME 92.4 fl (80-96); MEAN PLT VOLUME 9.9 fl (7.5-11.1); PLATELET COUNT 244 K/MM3 (134-434); RBC 4.06 M/mm3 (4.00-5.60); RDW 13.5 % (11.9-15.9); WHITE BLOOD COUNT 9.4 K/mm3 (4.0-10.0)
[2019-03-31 16:24] LABS: ALBUMIN 3.8 g/dl (3.4-5.0); BILIRUBIN,TOTAL 0.3 mg/dL (0.2-1); BLOOD UREA NITROGEN 11.8 mg/dL (7-18); CREATININE 0.7 mg/dL (0.55-1.3); POTASSIUM 3.9 mmol/L (3.5-5.1)
[2019-03-31] MEDS: THIAMINE HCL 100 MG TABLET (FP) PO SCH (22:41)
[2019-04-01] MEDS ORDERED: METHADONE HCL 5 MG TABLET (FOR DETOX USE ONLY) ONE (09:29)
[2019-04-01] MEDS ORDERED: METHADONE HCL 10 MG TABLET (FOR DETOX USE ONLY) ONE (09:29)
[2019-04-01] MEDS ORDERED: METHADONE (DETOX) 20 MG, METHADONE (DETOX) 5 MG PO ONE (10:00)
[2019-04-01] MEDS: NICOTINE 21 MG/24 HOURS TOPICAL PATCH TD SCH (10:17)
[2019-04-01] MEDS: PRENATAL VITAMINS W/ FOLIC ACID TABLET (FP) PO SCH (10:17)
--- NOTE | 2019-04-01 11:06 | PN ---
S COWS - Scale Resting Pulse: 0= [place] 80 or Below Sweatin= No chills or Flushing Restless Observation: 1= Difficult to Sit Still Pupil Size: 1= Pupils >than Normal Bone or Joint Aches: 1= Mild Discomfort Runny Nose/ Eye Tearin= Nasal Congestion GI Upset > 30mins: 2= Nausea/Diarrhea Tremor Observation of Outstretched Hands: 2= Slight Tremor Visible Yawning Observation: 1= 1-2x During Session Anxiety or Irritability: 2=Irritable/Anxious Goose Flesh Skin: 0=Smooth Skin COWS Score: 11 S Progress Note (SOAP) Subjective: alert,irritable,anxious,interrupted sleep,pain in the body and back Objective: 04/01/19 11:05 Vital Signs Temperature 97.8 F 04/01/19 08:45 Pulse Rate 59 L 04/01/19 08:45 Respiratory Rate 18 04/01/19 08:45 Blood Pressure 153/82 04/01/19 08:45 O2 Sat by Pulse Oximetry (%) Laboratory Last Values WBC 9.4 K/mm3 (4.0-10.0) 03/31/19 12:00 RBC 4.06 M/mm3 (4.00-5.60) 03/31/19 12:00 Hgb 12.5 GM/dL (11.7-16.9) 03/31/19 12:00 Hct 37.5 % (35.4-49) 03/31/19 12:00 MCV 92.4 fl (80-96) 03/31/19 12:00 MCH 30.8 pg (25.7-33.7) 03/31/19 12:00 MCHC 33.3 g/dl (32.0-35.9) 03/31/19 12:00 RDW 13.5 % (11.9-15.9) 03/31/19 12:00 Plt Count 244 K/MM3 (134-434) 03/31/19 12:00 MPV 9.9 fl (7.5-11.1) 03/31/19 12:00 Sodium 139 mmol/L (136-145) 03/31/19 12:00 Potassium 3.9 mmol/L (3.5-5.1) 03/31/19 12:00 Chloride 106 mmol/L (98-107) 03/31/19 12:00 Carbon Dioxide 29 mmol/L (21-32) 03/31/19 12:00 Anion Gap 5 MMOL/L (8-16) L 03/31/19 12:00 BUN 11.8 mg/dL (7-18) 03/31/19 12:00 Creatinine 0.7 mg/dL (0.55-1.3) 03/31/19 12:00 Est GFR (CKD-EPI)AfAm 123.13 03/31/19 12:00 Est GFR (CKD-EPI)NonAf 106.24 03/31/19 12:00 Random Glucose 132 mg/dL (74-106) H 03/31/19 12:00 Calcium 9.0 mg/dL (8.5-10.1) 03/31/19 12:00 Total Bilirubin 0.3 mg/dL (0.2-1) 03/31/19 12:00 AST 10 U/L (15-37) L 03/31/19 12:00 ALT 15 U/L (13-61) 03/31/19 12:00 Alkaline Phosphatase 79 U/L (45-117) 03/31/19 12:00 Total Protein 7.0 g/dl (6.4-8.2) 03/31/19 12:00 Albumin 3.8 g/dl (3.4-5.0) 03/31/19 12:00 RPR Titer Nonreactive (NONREACTIVE) 03/31/19 12:00 HIV 1&2 Antibody Screen Cancelled 03/31/19 11:20 HIV P24 Antigen Cancelled 03/31/19 11:20 Assessment: 04/01/19 11:05 withdrawal symptom Plan: continue detox methadone regimen,initial glucose is 132,fasting glucose in am
[2019-04-02] MEDS: THIAMINE HCL 100 MG TABLET (FP) PO SCH ×2 (00:02→22:43)
[2019-04-02] MEDS ORDERED: METHADONE HCL 10 MG TABLET (FOR DETOX USE ONLY) PO ONE (10:00)
[2019-04-02] MEDS ORDERED: METHADONE (DETOX) 10 MG, METHADONE (DETOX) 5 MG PO ONE (10:03)
--- NOTE | 2019-04-02 10:08 | PN ---
BHS COWS - Scale Resting Pulse: 0= [place] 80 or Below Sweatin= No chills or Flushing Restless Observation: 1= Difficult to Sit Still Pupil Size: 0= Normal to Room Light Bone or Joint Aches: 1= Mild Discomfort Runny Nose/ Eye Tearin= Nasal Congestion GI Upset > 30mins: 1= Stomach Cramp Tremor Observation of Outstretched Hands: 1= Tremor [place], Not Seen Yawning Observation: 1= 1-2x During Session Anxiety or Irritability: 1=Feels Anxious/Irritable Goose Flesh Skin: 0=Smooth Skin COWS Score: 7 S Progress Note (SOAP) Subjective: alert,irritable,anxious,interrupted sleep,pain in the body and back Objective: 04/02/19 10:07 Vital Signs Temperature 97.7 F 04/02/19 08:33 Pulse Rate 63 04/02/19 08:33 Respiratory Rate 16 04/02/19 08:33 Blood Pressure 133/77 04/02/19 08:33 O2 Sat by Pulse Oximetry (%) 04/02/19 10:07 Laboratory Results - last 24 hr 03/31/19 04/02/19 11:25 07:30 Fasting Glucose 89 HIV 1&2 Ag/Ab, 4th Gen Non reactive Assessment: 04/02/19 10:07 withdrawal symptom but less Plan: continue detox methadone regimen,adjust,for discharge in am
[2019-04-02] MEDS ORDERED: METHADONE HCL 10 MG TABLET (FOR DETOX USE ONLY) ONE (10:19)
[2019-04-02] MEDS ORDERED: METHADONE HCL 5 MG TABLET (FOR DETOX USE ONLY) ONE (10:19)
[2019-04-02] MEDS: NICOTINE 21 MG/24 HOURS TOPICAL PATCH TD SCH (11:12)
[2019-04-02] MEDS: PRENATAL VITAMINS W/ FOLIC ACID TABLET (FP) PO SCH (11:12)
[2019-04-02 17:33] VITALS: TEMP 97.9
[2019-04-03] MEDS ORDERED: METHADONE HCL 10 MG TABLET (FOR DETOX USE ONLY) PO ONE (06:00)
[2019-04-03 06:20] VITALS: BP 129/85; PULSE 56
--- NOTE | 2019-04-03 08:24 | PN ---
BHS COWS - Scale Resting Pulse: 0= [place] 80 or Below Sweatin= No chills or Flushing Restless Observation: 0= Sits Still Pupil Size: 0= Normal to Room Light Bone or Joint Aches: 1= Mild Discomfort Runny Nose/ Eye Tearin= None GI Upset > 30mins: 0= None Tremor Observation of Outstretched Hands: 0= None Yawning Observation: 0= None Anxiety or Irritability: 1=Feels Anxious/Irritable Goose Flesh Skin: 0=Smooth Skin COWS Score: 2 BHS Progress Note (SOAP) Subjective: alert,no complaint Objective: 04/03/19 08:23 Vital Signs Temperature 97.9 F 04/03/19 06:20 Pulse Rate 56 L 04/03/19 06:20 Respiratory Rate 18 04/03/19 06:20 Blood Pressure 129/85 04/03/19 06:20 O2 Sat by Pulse Oximetry (%) Assessment: 04/03/19 08:24 no withdrawal symptom Plan: stable for discharge today,follow up with after care program as arrangement
--- NOTE | 2019-04-03 08:30 | DS ---
[facility] Detox Discharge Summary Admission Date: 03/31/19 - History Present History: Alcohol Dependence, Cannabis Dependence, Opioid Dependence Additional Comments: alert,oriented x 3 ambulation on the unit heart normal heart sound lung clear no abdominal pain stable for discharge follow up with after care program as arrangement and medical provider discharge time spending 35 mins Pertinent Past History: hypertensioo hypercholesterolemia - Physical Exam Results Vital Signs: Vital Signs Temperature 97.9 F 04/03/19 06:20 Pulse Rate 56 L 04/03/19 06:20 Respiratory Rate 18 04/03/19 06:20 Blood Pressure 129/85 04/03/19 06:20 O2 Sat by Pulse Oximetry (%) Pertinent Admission Physical Exam Findings: withdrawal signs and symptom Vital Signs Temperature 97.9 F 04/03/19 06:20 Pulse Rate 56 L 04/03/19 06:20 Respiratory Rate 18 04/03/19 06:20 Blood Pressure 129/85 04/03/19 06:20 O2 Sat by Pulse Oximetry (%) Laboratory Last Values WBC 9.4 K/mm3 (4.0-10.0) 03/31/19 12:00 RBC 4.06 M/mm3 (4.00-5.60) 03/31/19 12:00 Hgb 12.5 GM/dL (11.7-16.9) 03/31/19 12:00 Hct 37.5 % (35.4-49) 03/31/19 12:00 MCV 92.4 fl (80-96) 03/31/19 12:00 MCH 30.8 pg (25.7-33.7) 03/31/19 12:00 MCHC 33.3 g/dl (32.0-35.9) 03/31/19 12:00 RDW 13.5 % (11.9-15.9) 03/31/19 12:00 Plt Count 244 K/MM3 (134-434) 03/31/19 12:00 MPV 9.9 fl (7.5-11.1) 03/31/19 12:00 Sodium 139 mmol/L (136-145) 03/31/19 12:00 Potassium 3.9 mmol/L (3.5-5.1) 03/31/19 12:00 Chloride 106 mmol/L (98-107) 03/31/19 12:00 Carbon Dioxide 29 mmol/L (21-32) 03/31/19 12:00 Anion Gap 5 MMOL/L (8-16) L 03/31/19 12:00 BUN 11.8 mg/dL (7-18) 03/31/19 12:00 Creatinine 0.7 mg/dL (0.55-1.3) 03/31/19 12:00 Est GFR (CKD-EPI)AfAm 123.13 03/31/19 12:00 Est GFR (CKD-EPI)NonAf 106.24 03/31/19 12:00 Random Glucose 132 mg/dL (74-106) H 03/31/19 12:00 Fasting Glucose 89 mg/dL (74-106) 04/02/19 07:30 Calcium 9.0 mg/dL (8.5-10.1) 03/31/19 12:00 Total Bilirubin 0.3 mg/dL (0.2-1) 03/31/19 12:00 AST 10 U/L (15-37) L 03/31/19 12:00 ALT 15 U/L (13-61) 03/31/19 12:00 Alkaline Phosphatase 79 U/L (45-117) 03/31/19 12:00 Total Protein 7.0 g/dl (6.4-8.2) 03/31/19 12:00 Albumin 3.8 g/dl (3.4-5.0) 03/31/19 12:00 RPR Titer Nonreactive (NONREACTIVE) 03/31/19 12:00 HIV 1&2 Ag/Ab, 4th Gen Non reactive (Non Reactive) 03/31/19 11:25 HIV 1&2 Antibody Screen Cancelled 03/31/19 11:20 HIV P24 Antigen Cancelled 03/31/19 11:20 - Treatment Hospital Course: Detox Protocol Followed, Detoxed Safely, Responded well, Discharged Condition Good Patient has Accepted a Rehab Referral to: declined - Medication Discharge Medications: Ambulatory Orders NK [No Known Home Medication] 03/01/19 - Diagnosis (1) Alcohol dependence Current Visit: No Status: Acute (2) Nicotine dependence, uncomplicated Current Visit: No Status: Acute Qualifiers: Nicotine product type: cigarettes Qualified Code(s): F17.210 - Nicotine dependence, cigarettes, uncomplicated (3) Opioid dependence, uncomplicated Current Visit: No Status: Acute (4) Cannabis dependence Current Visit: No Status: Chronic (5) Hypertension Current Visit: No Status: Chronic Qualifiers: Hypertension type: essential hypertension Qualified Code(s): I10 - Essential (primary) hypertension (6) History of hypercholesterolemia Current Visit: No Status: Suspected (7) History of AR (myocardial infarction) Current Visit: No Status: Resolved - AMA Did Patient Leave Against Medical Advice: No
[2019-04-03] MEDS ORDERED: METHADONE (DETOX) 10 MG, METHADONE (DETOX) 5 MG PO ONE (10:00)
[2019-04-04] MEDS ORDERED: METHADONE HCL 10 MG TABLET (FOR DETOX USE ONLY) PO ONE (10:00)
[2019-04-05] MEDS ORDERED: METHADONE HCL 5 MG TABLET (FOR DETOX USE ONLY) PO ONE (06:00)
== END 2019-04-03 09:00 | disposition home or self-care (01) | DRG 773 ==
LOC: YASAS 10:06 → Y6N 12:01
PROVIDERS: ADMIT Allergy & Immunology; ATTEND Allergy & Immunology
PROC: HZ2ZZZZ Detoxification Services for Substance Abuse Treatment (ICD-10-PCS; principal; 2019-03-31)
DX: F11.23 Opioid dependence with withdrawal (principal); F10.230 Alcohol dependence with withdrawal, uncomplicated; F12.20 Cannabis dependence, uncomplicated; F17.210 Nicotine dependence, cigarettes, uncomplicated; F41.8 Other specified anxiety disorders; F32.9 Major depressive disorder, single episode, unspecified; I25.10 Atherosclerotic heart disease of native coronary artery without angina pectoris; I10 Essential (primary) hypertension; I25.2 Old myocardial infarction; E78.00 Pure hypercholesterolemia, unspecified; R56.9 Unspecified convulsions; Z91.013 Allergy to seafood; Z91.018 Allergy to other foods; Z59.0 Homelessness
CPT/HCPCS: 36415; 80053; 82947; 85027; 86593; 87389; J0735

== ENCOUNTER 2020-04-19 10:19 | Inpatient (IN) | payer OTHER ==
[2020-04-19 11:09] VITALS: BMI 21.1
[2020-04-19] MEDS ORDERED: METHADONE HCL 10 MG TABLET (FOR DETOX USE ONLY) PO ONE (12:22)
[2020-04-19] MEDS ORDERED: MAGNESIUM CITRATE 300 ML BOTTLE PO PRN (12:22)
[2020-04-19] MEDS ORDERED: MAG HYDROX/AL HYDROX/SIMETH 30 ML UNIT-DOSE CUP PO PRN (12:22)
[2020-04-19] MEDS ORDERED: MAGNESIUM HYDROX 2400MG/30ML ORAL SUSPENSION 30 ML CUP PO PRN (12:22)
[2020-04-19] MEDS ORDERED: NICOTINE POLACRILEX 2 MG GUM BUC PRN (12:22)
[2020-04-19] MEDS ORDERED: ACETAMINOPHEN 325 MG TABLET (FP) PO PRN ×2 (12:22)
[2020-04-19] MEDS ORDERED: MENTHOL/PHENOL 1 EACH UD MM PRN (12:22)
[2020-04-19] MEDS ORDERED: BISMUTH SUBSALICYLATE 262 MG/15 ML BTL PO PRN (12:22)
[2020-04-19] MEDS ORDERED: ONDANSETRON *ODT* 4 MG TABLET SL PRN (12:22)
[2020-04-19] MEDS: hydrOXYzine PAMOATE 25 MG CAPSULE (FP) PO SCH ×3 (13:38→23:19)
[2020-04-19] MEDS: PRENATAL VITAMINS W/ FOLIC ACID TABLET (FP) PO SCH (13:39)
[2020-04-19] MEDS: NICOTINE 21 MG/24 HOURS TOPICAL PATCH TD SCH (13:39)
[2020-04-19 14:16] LABS: HEMATOCRIT 39.6 % (35.4-49); HEMOGLOBIN 13.3 GM/dL (11.7-16.9); MCH 30.3 pg (25.7-33.7); MCHC 33.5 g/dl (32.0-35.9); MEAN CELL VOLUME 90.4 fl (80-96); MEAN PLT VOLUME 9.4 fl (7.5-11.1); PLATELET COUNT 316 K/MM3 (134-434); RBC 4.38 M/mm3 (4.00-5.60); RDW 13.3 % (11.9-15.9); WHITE BLOOD COUNT 5.4 K/mm3 (4.0-10.0)
[2020-04-19 14:19] LABS: POTASSIUM 4.4 mmol/L (3.5-5.1)
[2020-04-19 14:21] LABS: CALCIUM 9.1 mg/dL (8.5-10.1)
[2020-04-19 14:22] LABS: ALBUMIN 3.4 g/dl (3.4-5.0); BLOOD UREA NITROGEN 10.2 mg/dL (7-18)
[2020-04-19 14:25] LABS: CREATININE 0.8 mg/dL (0.55-1.3)
[2020-04-19 14:27] LABS: BILIRUBIN,TOTAL 0.2 mg/dL (0.2-1); TOT PROT 7.2 g/dl (6.4-8.2)
[2020-04-19 15:18] LABS: HIV INTERPRETATION NEGATIVE (NEGATIVE)
[2020-04-19] MEDS: MELATONIN 5 MG TABLETS PO SCH (23:19)
[2020-04-19] MEDS: THIAMINE HCL 100 MG TABLET (FP) PO SCH (23:19)
[2020-04-19] MEDS: IBUPROFEN 400 MG TABLET (FP) PO PRN (23:20)
[2020-04-19] MEDS: cloNIDine HCL 0.1 MG TABLET PO PRN (23:23)
[2020-04-20] MEDS: hydrOXYzine PAMOATE 25 MG CAPSULE (FP) PO SCH ×5 (06:42→23:09)
[2020-04-20] MEDS ORDERED: METHADONE HCL 10 MG TABLET (FOR DETOX USE ONLY) ONE (08:52)
[2020-04-20] MEDS ORDERED: METHADONE HCL 5 MG TABLET (FOR DETOX USE ONLY) ONE (08:52)
[2020-04-20] MEDS ORDERED: METHADONE (DETOX) 20 MG, METHADONE (DETOX) 5 MG PO ONE (10:00)
[2020-04-20] MEDS: PRENATAL VITAMINS W/ FOLIC ACID TABLET (FP) PO SCH (10:36)
[2020-04-20] MEDS: cloNIDine HCL 0.1 MG TABLET PO PRN (10:37)
[2020-04-20] MEDS: NICOTINE 21 MG/24 HOURS TOPICAL PATCH TD SCH (10:39)
[2020-04-20] MEDS: METHOCARBAMOL 500 MG TABLET PO PRN (18:04)
[2020-04-20] MEDS: IBUPROFEN 400 MG TABLET (FP) PO PRN (18:04)
[2020-04-20] MEDS: THIAMINE HCL 100 MG TABLET (FP) PO SCH (23:09)
[2020-04-20] MEDS: MELATONIN 5 MG TABLETS PO SCH (23:09)
[2020-04-21] MEDS: hydrOXYzine PAMOATE 25 MG CAPSULE (FP) PO SCH ×3 (05:52→13:13)
[2020-04-21] MEDS: IBUPROFEN 400 MG TABLET (FP) PO PRN (05:53)
[2020-04-21] MEDS: cloNIDine HCL 0.1 MG TABLET PO PRN (05:53)
[2020-04-21] MEDS ORDERED: METHADONE HCL 10 MG TABLET (FOR DETOX USE ONLY) PO ONE (10:00)
[2020-04-21] MEDS: NICOTINE 21 MG/24 HOURS TOPICAL PATCH TD SCH (10:27)
[2020-04-21] MEDS: PRENATAL VITAMINS W/ FOLIC ACID TABLET (FP) PO SCH (10:28)
[2020-04-21] MEDS: METHOCARBAMOL 500 MG TABLET PO PRN ×2 (10:29→17:50)
[2020-04-21] MEDS ORDERED: hydrOXYzine PAMOATE 25 MG CAPSULE (FP) PO PRN (13:48)
[2020-04-21] MEDS: diazePAM 5 MG TABLET PO PRN (17:50)
[2020-04-21] MEDS: THIAMINE HCL 100 MG TABLET (FP) PO SCH (23:17)
[2020-04-21] MEDS: MELATONIN 5 MG TABLETS PO SCH (23:17)
[2020-04-22] MEDS: diazePAM 5 MG TABLET PO PRN (07:37)
[2020-04-22] MEDS ORDERED: cloNIDine HCL 0.1 MG TABLET PO ONE (08:00)
[2020-04-22] MEDS ORDERED: TRIMETHOBENZAMIDE HCL 200MG/2ML INJ IM ONE (08:00)
[2020-04-22 08:55] VITALS: BP 123/68; PULSE 73; TEMP 98.2
[2020-04-22] MEDS ORDERED: METHADONE HCL 10 MG TABLET (FOR DETOX USE ONLY) ONE (09:18)
[2020-04-22] MEDS ORDERED: METHADONE HCL 5 MG TABLET (FOR DETOX USE ONLY) ONE (09:18)
[2020-04-22] MEDS ORDERED: METHADONE (DETOX) 10 MG, METHADONE (DETOX) 5 MG PO ONE (10:00)
[2020-04-22] MEDS: METHOCARBAMOL 500 MG TABLET PO PRN (10:13)
[2020-04-22] MEDS: NICOTINE 21 MG/24 HOURS TOPICAL PATCH TD SCH (10:16)
[2020-04-22] MEDS: PRENATAL VITAMINS W/ FOLIC ACID TABLET (FP) PO SCH (10:16)
[2020-04-22] MEDS ORDERED: cloNIDine HCL 0.1 MG TABLET PO SCH (22:00)
[2020-04-23] MEDS ORDERED: METHADONE HCL 10 MG TABLET (FOR DETOX USE ONLY) PO ONE (10:00)
[2020-04-24] MEDS ORDERED: METHADONE HCL 5 MG TABLET (FOR DETOX USE ONLY) PO ONE (06:00)
== END 2020-04-22 12:30 | disposition left against medical advice (07) | DRG 770 ==
LOC: YASAS 10:19 → Y3N 11:56
PROVIDERS: ADMIT Allergy & Immunology; ATTEND Allergy & Immunology
PROC: HZ2ZZZZ Detoxification Services for Substance Abuse Treatment (ICD-10-PCS; principal; 2020-04-19)
DX: F11.23 Opioid dependence with withdrawal (principal); F10.230 Alcohol dependence with withdrawal, uncomplicated; F12.20 Cannabis dependence, uncomplicated; F17.210 Nicotine dependence, cigarettes, uncomplicated; F19.282 Other psychoactive substance dependence with psychoactive substance-induced sleep disorder; F19.24 Other psychoactive substance dependence with psychoactive substance-induced mood disorder; F41.8 Other specified anxiety disorders; F32.9 Major depressive disorder, single episode, unspecified; G47.00 Insomnia, unspecified; I10 Essential (primary) hypertension; E78.00 Pure hypercholesterolemia, unspecified; Z62.810 Personal history of physical and sexual abuse in childhood; I25.2 Old myocardial infarction; Z91.018 Allergy to other foods; Z91.013 Allergy to seafood; Z56.0 Unemployment, unspecified; Z59.0 Homelessness
CPT/HCPCS: 36415; 80053; 85027; 86780; 87389; C9803; J0735; Q0162; U0003

== ENCOUNTER 2020-07-19 12:03 | Inpatient (IN) | payer OTHER ==
[2020-07-19 13:24] VITALS: BMI 20.1
[2020-07-19] MEDS ORDERED: MENTHOL/PHENOL 1 EACH UD MM PRN (13:30)
[2020-07-19] MEDS ORDERED: cloNIDine HCL 0.1 MG TABLET PO PRN (13:30)
[2020-07-19] MEDS ORDERED: MAGNESIUM HYDROX 2400MG/30ML ORAL SUSPENSION 30 ML CUP PO PRN (13:30)
[2020-07-19] MEDS ORDERED: MAGNESIUM CITRATE 300 ML BOTTLE PO PRN (13:30)
[2020-07-19] MEDS ORDERED: METHOCARBAMOL 500 MG TABLET PO PRN (13:30)
[2020-07-19] MEDS ORDERED: ACETAMINOPHEN 325 MG TABLET (FP) PO PRN ×2 (13:30)
[2020-07-19] MEDS ORDERED: NICOTINE POLACRILEX 2 MG GUM BUC PRN (13:30)
[2020-07-19] MEDS ORDERED: ONDANSETRON *ODT* 4 MG TABLET SL PRN (13:30)
[2020-07-19] MEDS ORDERED: IBUPROFEN 400 MG TABLET (FP) PO PRN (13:30)
[2020-07-19] MEDS ORDERED: MAG HYDROX/AL HYDROX/SIMETH 30 ML UNIT-DOSE CUP PO PRN (13:30)
[2020-07-19] MEDS ORDERED: BISMUTH SUBSALICYLATE 524 MG/30 ML PO PRN (13:30)
[2020-07-19] MEDS ORDERED: METHADONE HCL 10 MG TABLET (FOR DETOX USE ONLY) PO ONE (14:00)
[2020-07-19] MEDS: hydrOXYzine PAMOATE 25 MG CAPSULE (FP) PO SCH ×3 (15:16→22:50)
[2020-07-19] MEDS: PRENATAL VITAMINS W/ FOLIC ACID TABLET (FP) PO SCH (15:19)
[2020-07-19] MEDS: NICOTINE 14 MG/24 HOURS TOPICAL PATCH TD SCH (15:19)
[2020-07-19] MEDS ORDERED: MELATONIN 5 MG TABLETS PO SCH (22:00)
[2020-07-19] MEDS ORDERED: THIAMINE HCL 100 MG TABLET (FP) PO SCH (22:00)
[2020-07-20] MEDS: hydrOXYzine PAMOATE 25 MG CAPSULE (FP) PO SCH ×2 (05:55→10:05)
[2020-07-20] MEDS ORDERED: METHADONE HCL 5 MG TABLET (FOR DETOX USE ONLY) ONE (08:57)
[2020-07-20] MEDS ORDERED: METHADONE HCL 10 MG TABLET (FOR DETOX USE ONLY) ONE (08:58)
[2020-07-20 09:30] VITALS: TEMP 98.1
[2020-07-20] MEDS ORDERED: METHADONE (DETOX) 20 MG, METHADONE (DETOX) 5 MG PO ONE (10:00)
[2020-07-20] MEDS: NICOTINE 14 MG/24 HOURS TOPICAL PATCH TD SCH (10:05)
[2020-07-20] MEDS: PRENATAL VITAMINS W/ FOLIC ACID TABLET (FP) PO SCH (10:05)
[2020-07-20 10:54] LABS: HEMATOCRIT 36.2 % (35.4-49); HEMOGLOBIN 12.2 GM/dL (11.7-16.9); MCH 30.5 pg (25.7-33.7); MCHC 33.7 g/dl (32.0-35.9); MEAN CELL VOLUME 90.4 fl (80-96); MEAN PLT VOLUME 9.9 fl (7.5-11.1); PLATELET COUNT 290 K/MM3 (134-434); WHITE BLOOD COUNT 6.2 K/mm3 (4.0-10.0)
[2020-07-20 11:08] LABS: ALBUMIN 3.4 g/dl (3.4-5.0); CALCIUM 9.1 mg/dL (8.5-10.1)
[2020-07-20 11:09] LABS: BLOOD UREA NITROGEN 7.1 mg/dL (7-18)
[2020-07-20 11:12] LABS: CREATININE 0.6 mg/dL (0.55-1.3)
[2020-07-20 11:13] LABS: BILIRUBIN,TOTAL 0.3 mg/dL (0.2-1); TOT PROT 6.9 g/dl (6.4-8.2)
[2020-07-20] MEDS ORDERED: diazePAM 5 MG TABLET PO PRN (11:23)
[2020-07-20] MEDS ORDERED: TRIMETHOBENZAMIDE HCL 200MG/2ML INJ IM PRN (11:24)
[2020-07-20] MEDS ORDERED: TRIMETHOBENZAMIDE HCL 200MG/2ML INJ IM ONE (11:30)
[2020-07-20 11:51] LABS: HIV INTERPRETATION NEGATIVE (NEGATIVE)
[2020-07-20 13:12] VITALS: BP 165/77; PULSE 51
[2020-07-20] MEDS ORDERED: traZODone HCL 100 MG TABLET (FP) PO SCH (22:00)
[2020-07-21] MEDS ORDERED: METHADONE HCL 10 MG TABLET (FOR DETOX USE ONLY) PO ONE (10:00)
[2020-07-22] MEDS ORDERED: METHADONE (DETOX) 10 MG, METHADONE (DETOX) 5 MG PO ONE (10:00)
[2020-07-23] MEDS ORDERED: METHADONE HCL 10 MG TABLET (FOR DETOX USE ONLY) PO ONE (10:00)
[2020-07-24] MEDS ORDERED: METHADONE HCL 5 MG TABLET (FOR DETOX USE ONLY) PO ONE (06:00)
== END 2020-07-20 12:56 | disposition left against medical advice (07) | DRG 770 ==
LOC: YASAS 12:03 → Y6N 13:45
PROVIDERS: ADMIT Allergy & Immunology; ATTEND Allergy & Immunology
PROC: HZ2ZZZZ Detoxification Services for Substance Abuse Treatment (ICD-10-PCS; principal; 2020-07-19)
DX: F11.23 Opioid dependence with withdrawal (principal); F17.210 Nicotine dependence, cigarettes, uncomplicated; F19.282 Other psychoactive substance dependence with psychoactive substance-induced sleep disorder; F19.24 Other psychoactive substance dependence with psychoactive substance-induced mood disorder; F32.9 Major depressive disorder, single episode, unspecified; I10 Essential (primary) hypertension; I25.2 Old myocardial infarction; E78.5 Hyperlipidemia, unspecified; G40.89 Other seizures; Z56.0 Unemployment, unspecified; Z59.0 Homelessness; Z91.013 Allergy to seafood
CPT/HCPCS: 36415; 80053; 85027; 86780; 87389; 93005; 93010; C9803; Q0162; U0003; U0005